=== PATIENT | male | born 1935 | race Caucasian/White ===

== ENCOUNTER 2019-06-12 11:10 | Emergency (ER) | payer MEDICARE, BC, MEDICAID ==
--- NOTE | 2019-06-12 12:11 | ER Document Report ---
ED Medical Screen (RME) - General Chief Complaint: Fall Injury Stated Complaint: FALL/RIGHT LEG PAIN Time Seen by Provider: 06/12/19 12:03 Primary Care Provider: PILLO MELTON MD [Primary Care Provider] - Follow up as needed Notes: Patient is a 84-year-old male with a history of [place] and COPD who presents emergency department with a chief complaint of right lower extremity swelling and redness. Patient reports he does normally have some swelling to his lower extremities but this is gotten worse over the past few weeks. Patient reports he is also had an increase in redness to the right lower extremity. Patient reports he is not a diabetic. Patient denies fevers. Patient reports he attempted to go to the urgent care but they sent him here for an evaluation as they thought he may require IV antibiotics. Patient reports having an open wound noted to the top of the right foot that just developed yesterday. TRAVEL OUTSIDE OF THE [place] IN LAST 30 DAYS: No - Related Data Allergies/Adverse Reactions: Penicillins Allergy (Verified 06/12/19 12:04) Sulfa (Sulfonamide Antibiotics) Allergy (Verified 06/12/19 12:04) Past Medical History - Past Medical History Cardiac Medical History: Reports: Hx Heart Attack - x2, Hx Hypertension Pulmonary Medical History: Reports: Hx COPD Past Surgical History: Reports: Hx Cardiac Catheterization, Hx Coronary Stent, Hx Orthopedic Surgery - Back surgery for spinal stenosis on 08/23/2015 Physical Exam - Vital signs Vitals: Temp Pulse BP Pulse Ox 97.6 F 58 L 148/63 H 92 06/12/19 11:16 06/12/19 11:16 06/12/19 11:16 06/12/19 11:16 - Extremities Notes: +4 pitting edema and erythema noted to the right lower extremity, unable to palpate a pulse due to to severity of swelling. Course - Re-evaluation Re-evalutation: 06/12/19 12:09 We will obtain basic labs, venous Doppler of the right lower extremity and x- ray. Patient is not tachycardic, febrile or hypotensive at this time. I have greeted and performed a rapid initial assessment of this patient. A comprehensive ED assessment and evaluation of the patient, analysis of test results and completion of the medical decision making process will be conducted by additional ED providers. - Vital Signs Vital signs: Temp Pulse Resp BP Pulse Ox 97.6 F 58 L 148/63 H 92 06/12/19 11:16 06/12/19 11:16 06/12/19 11:16 06/12/19 11:16 Doctor's Discharge - Discharge Referrals: PILLO MELTON MD [Primary Care Provider] - Follow up as needed
[2019-06-12 12:52] LABS: MEAN CORPUSCULAR HEMOGLOBIN 33.5 pg (27.0-33.4); MEAN CORPUSCULAR HGB CONC 33.3 g/dL (32.0-36.0); MEAN CORPUSCULAR VOLUME 101 fl (80-97); PLATELET COUNT 184 10^3/uL (150-450); RED BLOOD COUNT 4.47 10^6/uL (4.35-5.55); RED CELL DISTRIBUTION WIDTH 15.4 % (11.5-14.0); WHITE BLOOD COUNT 7.5 10^3/uL (4.0-10.5)
--- NOTE | 2019-06-12 12:54 | RADIOLOGY REPORT (SQ) ---
EXAM DESCRIPTION: FOOT RIGHT COMPLETE COMPLETED DATE/TIME: 06/12/2019 12:21 pm REASON FOR STUDY: + swelling, redness COMPARISON: None. NUMBER OF VIEWS: Three views. TECHNIQUE: AP, lateral and oblique radiographic images acquired of the right foot. LIMITATIONS: None. FINDINGS: MINERALIZATION: Normal. BONES: No acute fracture or dislocation. No worrisome bone lesions. JOINTS: No effusions. SOFT TISSUES: No soft tissue swelling. No foreign body. OTHER: No other significant finding. IMPRESSION: No fracture. TECHNICAL DOCUMENTATION: JOB ID: [id number] [employer]- All Rights Reserved Reading location - IP/workstation name: [email or web address]
--- NOTE | 2019-06-12 12:58 | RADIOLOGY REPORT (SQ) ---
EXAM DESCRIPTION: TIBIA FIBULA RIGHT COMPLETED DATE/TIME: 06/12/2019 12:21 pm REASON FOR STUDY: + swelling, redness COMPARISON: None. NUMBER OF VIEWS: Two views. TECHNIQUE: Two radiographic images acquired of the right tibia and fibula to include the knee and an kle in at least one projection. LIMITATIONS: None. FINDINGS: MINERALIZATION: Normal. BONES: No acute fracture or dislocation. No worrisome bone lesions. SOFT TISSUES: No obvious swelling or foreign body. OTHER: No other significant finding. IMPRESSION: No acute findings. TECHNICAL DOCUMENTATION: JOB ID: [id number] [employer]- All Rights Reserved Reading location - IP/workstation name: [email or web address]
[2019-06-12 13:12] LABS: ABSOLUTE LYMPHOCYTES# (MANUAL) 1.4 10^3/uL (0.5-4.7); ABSOLUTE MONOCYTES # (MANUAL) 0.6 10^3/uL (0.1-1.4); ALBUMIN 4.2 g/dL (3.5-5.0); ALKALINE PHOSPHATASE 128 U/L (38-126); ANION GAP 7 (5-19); ANISOCYTOSIS SLIGHT; ASPARTATE AMINO TRANSFERASE 40 U/L (17-59); BAND NEUTROPHILS % (MANUAL) 1 % (3-5); BASOPHILS % (MANUAL) 0 % (0-2); BILIRUBIN,TOTAL 1.4 mg/dL (0.2-1.3); BLOOD UREA NITROGEN 18 mg/dL (7-20); CALCIUM 9.8 mg/dL (8.4-10.2); CARBON DIOXIDE 32 mmol/L (22-30); CHLORIDE 100 mmol/L (98-107); EOSINOPHILS % (MANUAL) 6 % (0-6); GLUCOSE 91 mg/dL (75-110); LYMPHOCYTES % (MANUAL) 18 % (13-45); MONOCYTES % (MANUAL) 8 % (3-13); POTASSIUM 4.5 mmol/L (3.6-5.0); SEGMENTED NEUTROPHILS % (MAN) 67 % (42-78); TOTAL CELLS COUNTED 100; TOTAL PROTEIN 7.9 g/dL (6.3-8.2)
--- NOTE | 2019-06-12 13:12 | ER Document Report ---
ED General - General Chief Complaint: Leg Swelling Stated Complaint: FALL/RIGHT LEG PAIN Time Seen by Provider: 06/12/19 12:03 Primary Care Provider: PILLO MELTON MD [ACTIVE STAFF] - Follow up as needed TRAVEL OUTSIDE OF THE [place] IN LAST 30 DAYS: No - HPI Notes: Patient is an 84-year-old male with a history of COPD, hypertension, CAD (on aspirin) who presents with family for concern of right lower leg swelling and redness that is been worsening over the past couple weeks. Family states that his activity level is normally poor otherwise. Patient states that he does not have any pain currently in his leg, but will complain about it intermittently. He has been able to eat and drink without difficulty. He is urinating normally. Denies any headache, fever, neck pain, URI, sore throat, chest pain, palpitations, syncope, cough, shortness of breath, wheeze, dyspnea, abdominal pain, nausea/vomiting/diarrhea, urinary retention, dysuria, hematuria, or rash. - Related Data Allergies/Adverse Reactions: Penicillins Allergy (Verified 06/12/19 12:04) Sulfa (Sulfonamide Antibiotics) Allergy (Verified 06/12/19 12:04) Past Medical History - Social History Smoking Status: Never Smoker Chew tobacco use (# tins/day): No Frequency of alcohol use: None Drug Abuse: None Family History: Reviewed & Not Pertinent Patient has suicidal ideation: No Patient has homicidal ideation: No - Past Medical History Cardiac Medical History: Reports: Hx Heart Attack - x2, Hx Hypercholesterolemia, Hx Hypertension Pulmonary Medical History: Reports: Hx COPD Past Surgical History: Reports: Hx Cardiac Catheterization, Hx Coronary Stent, Hx Orthopedic Surgery - Back surgery for spinal stenosis on 08/23/2015 Review of Systems - Review of Systems -: Yes All other systems reviewed and negative Physical Exam - Vital signs Vitals: Temp Pulse BP Pulse Ox 97.6 F 58 L 148/63 H 92 06/12/19 11:16 06/12/19 11:16 06/12/19 11:16 06/12/19 11:16 - Notes Notes: PHYSICAL EXAMINATION: GENERAL: Well-appearing, well-nourished and in no acute distress. HEAD: Atraumatic, normocephalic. EYES: Pupils equal round and reactive to light, extraocular movements intact, sclera anicteric, conjunctiva are normal. ENT: Nares patent and without discharge. oropharynx clear without exudates. No tonsilar hypertrophy or erythema. Moist mucous membranes. NECK: Normal range of motion, supple without lymphadenopathy LUNGS: Breath sounds clear to auscultation bilaterally and equal. No wheezes rales or rhonchi. HEART: Regular rate and rhythm without murmurs, rubs, gallops. ABDOMEN: Soft, nontender, nondistended abdomen. No guarding, no rebound. No rmal bowel sounds present. No CVA tenderness bilaterally. Musculoskeletal: FROM to passive/active. Strength 5+/5. no bony tenderness. Extremities: 2+ pitting edema RLE, trace LLE. Peripheral pulses 2+ on left. too much swelling rt foot to eval pulses. Cap refill 4 seconds rt foot with dusky appearance to the toes. Foot is warm, but toes feel cold. Rt LE is erythemic and warm with the swelling present. NEUROLOGICAL: Cranial nerves grossly intact. Normal speech, normal gait. Normal sensory, motor exams PSYCH: Normal mood, normal affect. SKIN: see above Course - Re-evaluation Re-evalutation: 06/12/19 13:[address] Troy who also eval'd patient and agrees with dispo/plan: Patient is an afebrile, well-hydrated, 84-year-old male who presents to the ED with Rt LE cellulitis. Vitals are acceptable without any significant tachycardia, tachypnea, or hypoxia. PE is otherwise unremarkable for any neuro vascular compromise, obvious tendon/ligament rupture, obvious fracture/dislocation, septic joint. X-rays/doppler unremarkable for any acute pathology. Doppler tech states there was good arterial and venous flow. Labs acceptable otherwise. Patient is nontoxic-appearing. Patient is able to ambula te and weight-bear. No other labs or imaging warranted at this time based on H&P. Conservative measures otherwise for symptoms. Recheck with your PCM in 3- 5 days. Consider consult orthopedics. Return to the ED with any worsening/concerning symptoms otherwise as reviewed in discharge. Patient is in agreement. - Vital Signs Vital signs: Temp Pulse Resp BP Pulse Ox 97.6 F 58 L 148/63 H 92 06/12/19 12:04 06/12/19 11:16 06/12/19 11:16 06/12/19 12:04 - Laboratory Result Diagrams: 06/12/19 12:31 12 12:31 Laboratory results interpreted by me: 06/12/19 06/12/19 12:31 12:31 MCV 101 H MCH 33.5 H RDW 15.4 H Band Neutrophils % 1 L Carbon Dioxide 32 H Total Bilirubin 1.4 H Alkaline Phosphatase 128 H Discharge - Discharge Clinical Impression: Cellulitis of right lower extremity Condition: Stable Disposition: HOME, SELF-CARE Additional Instructions: Rest, Ice, Compression, Elevation Keep the skin clean and wash with soap and water Tylenol/ibuprofen as needed Light stretches daily Strength exercises as able F/u with your PCP in 3-5 days for a recheck Return to the ED with any worsening symptoms and/or development of fever, headache, chest pain, palpitations, syncope, shortness of breath, trouble breathing, abdominal pain, n/v/d, muscle weakness/paralysis, numbness/tingling, swelling, redness, or other worsening symptoms that are concerning to you. Prescriptions: Clindamycin HCl [Cleocin 300 mg Capsule] 300 mg PO TID #30 capsule Forms: Elevated Blood Pressure Referrals: Provider, Family [Other] - Follow up in 3-5 days
[2019-06-12 13:13] LABS: PLATELET COMMENT ADEQUATE
--- NOTE | 2019-06-12 14:07 | RADIOLOGY REPORT (SQ) ---
EXAM DESCRIPTION: VENOUS UNILATERAL LOWER COMPLETED DATE/TIME: 06/12/2019 1:34 pm REASON FOR STUDY: + swelling and redness RLE COMPARISON: None. TECHNIQUE: Dynamic and static prieto scale and color images acquired of the right leg venous system. S elected spectral images acquired with additional compression and augmentation maneuvers. The contrala teral common femoral vein and saphenofemoral junction were also imaged. Images stored on PACS. LIMITATIONS: None. FINDINGS: COMMON FEMORAL: Normal phasicity, compression and augmentation. No visualized echogenic ma terial on prieto scale. No defects on color images. FEMORAL: Normal compression and augmentation. No visualized echogenic material on prieto scale. No defe cts on color images. POPLITEAL: Normal compression, augmentation. No visualized echogenic material on prieto scale. No defec ts on color images. CALF VESSELS: Normal compression, augmentation. No visualized echogenic material on prieto scale. No de fects on color images. GSV and SSV: Normal compression, augmentation. No visualized echogenic material on prieto scale. No def ects on color images. ANY DEEP VENOUS INSUFFICIENCY: Not evaluated. ANY EVIDENCE OF POPLITEAL CYST: No. OTHER: Normal flow in the dorsalis pedis artery. CONTRALATERAL COMMON FEMORAL VEIN AND SAPHENOFEMORAL JUNCTION: Normal phasicity, compression and augmentation. No visualized echogenic material on prieto scale. No de fects on color images. IMPRESSION: NO EVIDENCE DVT OR SVT IN THE RIGHT LEG. TECHNICAL DOCUMENTATION: JOB ID: [id number] [employer]- All Rights Reserved Reading location - IP/workstation name: [email or web address]
[2019-06-12 14:12] VITALS: BP 146/70
== END 2019-06-12 14:11 | disposition home or self-care (01) ==
LOC: ER 11:10
DX: L03.115 Cellulitis of right lower limb (principal); M79.89 Other specified soft tissue disorders; M79.604 Pain in right leg; I10 Essential (primary) hypertension; I25.10 Atherosclerotic heart disease of native coronary artery without angina pectoris; I25.2 Old myocardial infarction; J44.9 Chronic obstructive pulmonary disease, unspecified
CPT/HCPCS: 36415; 80053; 85025; 93971; 99284

== ENCOUNTER 2020-02-24 10:24 | Inpatient (IN) | payer MEDICARE, BC, MEDICAID ==
[2020-02-24 11:04] LABS: HEMATOCRIT 38.9 % (37.9-51.0); MEAN CORPUSCULAR HEMOGLOBIN 34.4 pg (27.0-33.4); MEAN CORPUSCULAR HGB CONC 33.4 g/dL (32.0-36.0); MEAN CORPUSCULAR VOLUME 103 fl (80-97); PLATELET COUNT 196 10^3/uL (150-450); RED BLOOD COUNT 3.78 10^6/uL (4.35-5.55); RED CELL DISTRIBUTION WIDTH 14.5 % (11.5-14.0); WHITE BLOOD COUNT 10.1 10^3/uL (4.0-10.5)
[2020-02-24 11:19] LABS: ALBUMIN 3.5 g/dL (3.5-5.0); ALKALINE PHOSPHATASE 94 U/L (38-126); ASPARTATE AMINO TRANSFERASE 82 U/L (17-59); BILIRUBIN,DIRECT 0.1 mg/dL (0.0-0.4); BILIRUBIN,TOTAL 0.9 mg/dL (0.2-1.3); BLOOD UREA NITROGEN 18 mg/dL (7-20); CALCIUM 9.1 mg/dL (8.4-10.2); CHLORIDE 96 mmol/L (98-107); CREATINE KINASE 59 U/L (55-170); GLUCOSE 110 mg/dL (75-110); POTASSIUM 4.5 mmol/L (3.6-5.0); TOTAL PROTEIN 6.8 g/dL (6.3-8.2)
[2020-02-24 11:30] LABS: CREATINE KINASE MB 2.28 ng/mL (<4.55)
[2020-02-24 11:35] LABS: TROPONIN I < 0.012 ng/mL
[2020-02-24 11:46] LABS: ABSOLUTE LYMPHOCYTES# (MANUAL) 0.9 10^3/uL (0.5-4.7); BAND NEUTROPHILS % (MANUAL) 3 % (3-5); BASOPHILS % (MANUAL) 0 % (0-2); EOSINOPHILS % (MANUAL) 5 % (0-6); LYMPHOCYTES % (MANUAL) 9 % (13-45); METAMYELOCYTES % (MANUAL) 1 % (0-1); MONOCYTES % (MANUAL) 10 % (3-13); SEGMENTED NEUTROPHILS % (MAN) 72 % (42-78); TOTAL CELLS COUNTED 100
[2020-02-24 11:47] LABS: ANION GAP 6 (5-19); ANISOCYTOSIS SLIGHT; CARBON DIOXIDE 38 mmol/L (22-30); PLATELET COMMENT ADEQUATE
--- NOTE | 2020-02-24 11:53 | RADIOLOGY REPORT (SQ) ---
EXAM DESCRIPTION: CHEST SINGLE VIEW IMAGES COMPLETED DATE/TIME: 02/24/2020 11:23 am REASON FOR STUDY: sob COMPARISON: 11/14/2015 EXAM PARAMETERS: NUMBER OF VIEWS: One view. TECHNIQUE: Single frontal radiographic view of the chest acquired. RADIATION DOSE: NA LIMITATIONS: None. FINDINGS: LUNGS AND PLEURA: Obscuration of the right lung base appears to be on the basis of elevati on of the right hemidiaphragm. No focal consolidation. No pleural effusion or pneumothorax MEDIASTINUM AND HILAR STRUCTURES: Grossly normal. HEART AND VASCULAR STRUCTURES: Heart normal in size. Normal vasculature. BONES: No acute findings. HARDWARE: None in the chest. OTHER: No other significant finding. IMPRESSION: Suspect elevation of the right hemidiaphragm. Consider dedicated PA/ Lat chest imaging when feasible. TECHNICAL DOCUMENTATION: JOB ID: [id number] 2010 [employer]- All Rights Reserved Reading location - IP/workstation name: [email or web address]
[2020-02-24] MEDS ORDERED: IPRATROPIUM/ALBUTEROL 0.5-2.5 MG/3 ML AMPUL NEB ONE (13:36)
[2020-02-24] MEDS ORDERED: FUROSEMIDE INJ/PF 40 MG/4 ML SDV IV ONE (13:37)
--- NOTE | 2020-02-24 13:37 | ER Document Report ---
ED General - General Chief Complaint: Shortness Of Breath Stated Complaint: SHORTNESS OF BREATH Mode of Arrival: Medic Information source: Patient Notes: Patient is an 84-year-old male presenting to the emergency department chief complaint of worsening shortness of breath over the past couple of days. Patient comes in by EMS. At time of presentation patient is tachypneic and is only able to speak in 1 or 2 word answers. Patient denies any change in medications denies travel history. Patient states nobody at home smokes at this point in time. TRAVEL OUTSIDE OF THE [place] IN LAST 30 DAYS: No - HPI Onset: Last week Onset/Duration: Gradual, Worse Quality of pain: Achy Severity: Mild Pain Level: 1 Associated symptoms: Hoarseness, Hurts to breath, Nausea, Shortness of breath. denies: Diarrhea, Vomiting Exacerbated by: Movement, Walking, Coughing, Deep breathing - 70 was low Relieved by: Denies Similar symptoms previously: Yes Recently seen / treated by doctor: No - Related Data Allergies/Adverse Reactions: Penicillins Allergy (Verified 06/12/19 12:04) Sulfa (Sulfonamide Antibiotics) Allergy (Verified 06/12/19 12:04) Past Medical History - General Information source: Patient, [facility] Records - Social History Smoking Status: Unknown if Ever Smoked Chew tobacco use (# tins/day): No Frequency of alcohol use: None Drug Abuse: None Lives with: Family Family History: Reviewed & Not Pertinent Patient has suicidal ideation: No Patient has homicidal ideation: No - Past Medical History Cardiac Medical History: Reports: Hx Heart Attack - x2, Hx Hypercholesterolemia, Hx Hypertension Pulmonary Medical History: Reports: Hx COPD Past Surgical History: Reports: Hx Cardiac Catheterization, Hx Coronary Stent, Hx Orthopedic Surgery - Back surgery for spinal stenosis on 08/23/2015 Review of Systems - Review of Systems Constitutional: No symptoms reported EENT: No symptoms reported Cardiovascular: See HPI Respiratory: See HPI Gastrointestinal: No symptoms reported Genitourinary: No symptoms reported Male Genitourinary: No symptoms reported Musculoskeletal: Leg swelling, Ankle swelling Skin: Change in color Hematologic/Lymphatic: No symptoms reported Neurological/Psychological: No symptoms reported Physical Exam - Vital signs Vitals: Resp Pulse Ox 24 H 89 L 02/24/20 10:36 02/24/20 10:36 - Notes Notes: PHYSICAL EXAMINATION: GENERAL: Patient is a 84-year-old male presenting to the emergency department by EMS chief complaint of severe respiratory distress HEAD: Atraumatic, normocephalic. EYES: Pupils equal round and reactive to light, extraocular movements intact, sclera anicteric, conjunctiva are normal. ENT: nares patent, oropharynx clear without exudates. Dry mucous membranes. NECK: Normal range of motion, supple without lymphadenopathy, no appreciable JVD LUNGS: Patient is tachypneic and demonstrates end expiratory wheezing and rhonchi in all goldstein. HEART: Tachycardic rate and rhythm without murmurs ABDOMEN: Soft, nontender, decreased bowel sounds. No guarding, no rebound. No masses appreciated. EXTREMITIES: Active full range of motion, there is pitting edema and erythema to bilateral lower extremities mainly the feet. No cyanosis. 2+ pulses x4 NEUROLOGICAL: No focal neurological deficits. Moves all extremities sponta neously and on command. SKIN: Warm, Dry, and intact. Normal turgor, no rashes or lesions noted. Course - Re-evaluation Re-evalutation: 02/24/20 13:36 At time of presentation to the emergency department the patient was placed in ho spital bed IV access was obtained patient was placed on BiPAP. Labs EKG and portable chest x-ray had been ordered. 02/24/20 18:34 Patient has been maintained on a fringing machine operator the entire time in the emergency department. Patient has been placed on and remained on BiPAP and has had moderate relief with same. Patient was given 1 dose of Lasix 40 mg IV and a DuoNeb breathing treatment. I have reviewed the patient's laboratory and radiologic results as well as his EKG the chest x-ray demonstrated a markedly elevated right-sided diaphragm and patient was sent for CT of the chest secondary to this very abnormal appearing chest x-ray and his shortness of breath. 02/24/20 18:35 I have consulted the hospitalist for admission secondary to COPD exacerbation. Patient has had coronavirus testing and after speaking with the hospitalist he requested the addition of a d-dimer ferritin level and a CRP which has been requested. - Vital Signs Vital signs: Temp Pulse Resp BP Pulse Ox 98.0 F 72 17 133/57 H 100 02/24/20 11:35 02/24/20 11:35 02/24/20 12:01 02/24/20 12:00 02/24/20 12:01 - Laboratory Result Diagrams: 02/24/20 10:47 02/24/20 10:47 Laboratory results interpreted by me: 02/24/20 02/24/20 02/24/20 10:47 10:47 10:47 RBC 3.78 L Hgb 13.0 L MCV 103 H MCH 34.4 H RDW 14.5 H Lymphocytes % (Manual) 9 L Chloride 96 L Carbon Dioxide 38 H AST 82 H ALT 53 H NT-Pro-B Natriuret Pep 478 H Urine Blood Urine Urobilinogen 02/24/20 14:30 RBC Hgb MCV MCH RDW Lymphocytes % (Manual) Chloride Carbon Dioxide AST ALT NT-Pro-B Natriuret Pep Urine Blood SMALL H Urine Urobilinogen 2.0 H - Diagnostic Test Radiology reviewed: Reports reviewed - EKG Interpretation by Me EKG shows normal: Sinus rhythm Rate: Normal Rhythm: NSR Bowman/QRS: Right axis deviation When compared to previous EKG there are: No significant change Critical Care Note - Critical Care Note Total time excluding time spent on procedures (mins): 35 Comments: Please allow 35 minutes of critical care time spent obtaining history from patient or surrogate, discussions with consultants, development of treatment plan with patient or surrogate, evaluation of patient's response to treatment, examination of patient. This also includes ordering and reviewing laboratory, EKG and / or radiologic studies, performing and reassessing treatments and interventions as well as reviewing previous visits and old charts. This is exclusive of separately billable procedures. Discharge - Discharge Clinical Impression: COPD exacerbation, Respiratory distress Condition: Fair Disposition: ADMITTED INPATIENT Admitting Provider: Daysi (Hospitalist) Unit Admitted: Telemetry
[2020-02-24 15:14] LABS: APPEARANCE,URINE SLIGHTLY-CLOUDY; BILIRUBIN,URINE NEGATIVE (NEGATIVE); GLUCOSE, URINE NEGATIVE (NEGATIVE); KETONES,URINE NEGATIVE (NEGATIVE); LEUKOCYTE ESTERASE,URINE NEGATIVE (NEGATIVE); NITRITE,URINE NEGATIVE (NEGATIVE); PROTEIN,URINE NEGATIVE (NEGATIVE); URINE SPECIFIC GRAVITY 1.016
[2020-02-24 15:15] LABS: COLOR,URINE DARK YELLOW
--- NOTE | 2020-02-24 18:09 | RADIOLOGY REPORT (SQ) ---
EXAM DESCRIPTION: CT CHEST WITH IMAGES COMPLETED DATE/TIME: 02/24/2020 4:36 pm REASON FOR STUDY: sob. COMPARISON: Chest radiograph same date. Chest radiograph, 11/14/2015. TECHNIQUE: CT scan of the chest performed using helical scanning technique with dynamic intravenous contrast injection. Images reviewed with lung, soft tissue and bone windows. Reconstructed coronal and sagittal MPR and MIP images reviewed. All images stored on PACS. All CT scanners at this facility use dose modulation, iterative reconstruction, and/or weight based d osing when appropriate to reduce radiation dose to as low as reasonably achievable (ALARA). [facility]: Dose Right [facility]: CareDose [facility]: Dose Right [facility]: Teradose 4D [facility]: [email or web address] CONTRAST TYPE AND DOSE: contrast/concentration: Isovue 350.00 mmol/ml; Total Contrast Delivered: 80. 0 ml; Total Saline Delivered: 49.1 ml RENAL FUNCTION: GFR > 60. RADIATION DOSE: CT Rad equipment meets quality standard of care and radiation dose reduction techniq ues were employed. CTDIvol: 14.4 mGy. DLP: 547 mGy-cm. . LIMITATIONS: None. FINDINGS: LUNGS AND PLEURA: Trachea has normal caliber and appearance. There is background mild pul monary emphysema. Elevation of the right hemidiaphragm, stable from previous examinations, with mild compressive atelectasis at the right lung base. No focal consolidation or pleural effusion. No sig nificant ground-glass attenuation. No suspicious pulmonary nodules. HILAR AND MEDIASTINAL STRUCTURES: No identified masses or abnormal nodes. HEART AND VASCULAR STRUCTURES: No aneurysm or dissection. No central pulmonary emboli. No pericardi al effusion. HARDWARE: None in the chest. UPPER ABDOMEN: No significant findings. Limited exam. THYROID AND OTHER SOFT TISSUES: No masses. No adenopathy. BONES: No significant finding. Degenerative disc disease in the thoracic spine. Multilevel spondylo sis with small marginal osteophytes. OTHER: No other significant finding. IMPRESSION: 1. No acute pulmonary disease. Chronic elevation of the right hemidiaphragm with compressive atelect asis at the right lung base, stable. 2. Background mild pulmonary emphysema. TECHNICAL DOCUMENTATION: JOB ID: [id number] Quality ID # [id number]: Final reports with documentation of one or more dose reduction techniques (e.g., Au tomated exposure control, adjustment of the mA and/or kV according to patient size, use of iterative reconstruction technique) 2010 [employer] All Rights Reserved Reading location - IP/workstation name: [email or web address]
--- NOTE | 2020-02-24 18:41 | EKG REPORT ---
SEVERITY:- ABNORMAL ECG - SINUS RHYTHM RIGHT BUNDLE BRANCH BLOCK : Confirmed by: Emil Renteria 24-Feb-2020 18:40:31
[2020-02-24 18:51] LABS: C-REACTIVE PROTEIN 9.7 mg/L (<10.0)
[2020-02-24] MEDS ORDERED: ACETAMINOPHEN 650 MG SUPP.RECT PR PRN (18:58)
[2020-02-24] MEDS ORDERED: ONDANSETRON HCL INJ/PF 4 MG/2 ML SDV IV PRN (18:58)
[2020-02-24] MEDS ORDERED: IPRATROPIUM/ALBUTEROL 0.5-2.5 MG/3 ML AMPUL NEB PRN (18:58)
[2020-02-24] MEDS ORDERED: ONDANSETRON 4 MG TAB.RAPDIS PO PRN (18:58)
[2020-02-24] MEDS ORDERED: ALBUTEROL SULFATE HFA (90 MCG/PUFF) 8 GM MDI (1 MDI/ER DISP) IH PRN (19:04)
--- NOTE | 2020-02-24 19:18 | PDOC H&P ---
History of Present Illness History of Present Illness: DAVIDA MCKEON is a 84 year old male Past Medical History Cardiac Medical History: Reports: Myocardial Infarction - x2, Hyperlipidema, Hypertension Pulmonary Medical History: Reports: Chronic Obstructive Pulmonary Disease (COPD) Past Surgical History Past Surgical History: Reports: Cardiac Catheterization, Coronary Stent, Orthopedic Surgery - Back surgery for spinal stenosis on 08/23/2015 Social History Lives with: Family Smoking Status: Former Smoker Hx Recreational Drug Use: No Hx Prescription Drug Abuse: No - Advance Directive Resuscitation Status: Full Code Surrogate healthcare decision maker:: Layla Family History Family History: Reviewed & Not Pertinent Parental Family History Reviewed: Yes Children Family History Reviewed: Yes Sibling(s) Family History Reviewed.: Yes Medication/Allergy Home Medications: Atorvastatin Calcium [Lipitor 40 mg Tablet] 40 mg PO QHS 06/12/19 Budesonide/Formoterol Fumarate [Symbicort Hfa 80-4.5 Mcg Inhaler 6.9 gm] 1 puff IH Q12 06/12/19 Escitalopram Oxalate [Lexapro 10 mg Tablet] 10 mg PO DAILY 06/12/19 Isosorbide Mononitrate [Imdur 30 mg Tablet.er] 30 mg PO DAILY 06/12/19 Metoprolol Tartrate [Lopressor 25 mg Tablet] 25 mg PO DAILY 06/12/19 Albuterol Sulfate [Albuterol Sulfate Hfa] 2 puff IH Q6HP PRN 02/24/20 Bumetanide [Bumex 1 mg Tablet] 1 mg PO DAILY 02/24/20 Ipratropium/Albuterol Sulfate [Duoneb 3 ml Ampul] 3 ml NEB RTQ4HP PRN 02/24/20 Morphine Sulfate [Morphine Oral Soln 10 Mg/5 Ml Udcup] 0.25 mg PO Q1HP PRN 02/24/20 Morphine Sulfate [Morphine Oral Soln 10 Mg/5 Ml Udcup] 5 mg PO Q4HP PRN 02/24/20 Tiotropium Lee [Spiriva Handihaler 5 Cap/Kit (18 Mcg/Cap)] 1 inh IH DAILY 02/24/20 Allergies/Adverse Reactions: Penicillins Allergy (Verified 06/12/19 12:04) Sulfa (Sulfonamide Antibiotics) Allergy (Verified 06/12/19 12:04) Review of Systems ROS unobtainable: Due to mental status Physical Exam Vital Signs: Temp Pulse Resp BP Pulse Ox 98.0 F 72 17 133/57 H 100 02/24/20 11:35 02/24/20 11:35 02/24/20 12:01 02/24/20 12:00 02/24/20 12:01 Intake & Output 02/23/20 02/24/20 02/25/20 06:59 06:59 06:59 Weight 104.8 kg General appearance: PRESENT: mild distress, obese, well-developed, well- nourished Head exam: PRESENT: atraumatic, normocephalic Eye exam: PRESENT: conjunctiva pink Respiratory exam: PRESENT: rhonchi - Bilateral at the bases. ABSENT: rales, wheezes Cardiovascular exam: PRESENT: RRR. ABSENT: diastolic murmur, rubs, systolic murmur GI/Abdominal exam: PRESENT: normal bowel sounds, soft. ABSENT: distended, guar ding, mass, organolmegaly, rebound, tenderness Rectal exam: PRESENT: deferred Neurological exam: PRESENT: alert, awake Psychiatric exam: PRESENT: appropriate affect, normal mood Skin exam: PRESENT: dry, intact, warm Results Laboratory Results: 02/24/20 10:47 02/24/20 10:47 02/24/20 02/24/20 02/24/20 10:47 10:47 14:30 WBC 10.1 RBC 3.78 L Hgb 13.0 L Hct 38.9 MCV 103 H MCH 34.4 H MCHC 33.4 RDW 14.5 H Plt Count 196 Seg Neutrophils % Not Reportable Sodium 139.4 Potassium 4.5 Chloride 96 L Carbon Dioxide 38 H Anion Gap 6 BUN 18 Creatinine 0.76 Est GFR ( Amer) > 60 Glucose 110 Calcium 9.1 Total Bilirubin 0.9 AST 82 H Alkaline Phosphatase 94 Total Protein 6.8 Albumin 3.5 Urine Color DARK YELLOW Urine Appearance SLIGHTLY-CLOUDY Urine pH 5.0 Ur Specific [place] 1.016 Urine Protein NEGATIVE Urine Glucose (UA) NEGATIVE Urine Ketones NEGATIVE Urine Blood SMALL H Urine Nitrite NEGATIVE Ur Leukocyte Esterase NEGATIVE Urine WBC (Auto) 1 Urine RBC (Auto) 2 02/24/20 02/24/20 02/24/20 10:47 10:47 10:47 Creatine Kinase 59 CK-MB (CK-2) 2.28 Troponin I < 0.012 NT-Pro-B Natriuret Pep 478 H Impressions: Chest X-Ray 02/24/20 10:32 IMPRESSION: Suspect elevation of the right hemidiaphragm. Consider dedicated PA/ Lat chest imaging when feasible. Chest CT 02/24/20 13:31 IMPRESSION: 1. No acute pulmonary disease. Chronic elevation of the right hemidiaphragm with compressive atelectasis at the right lung base, stable. 2. Background mild pulmonary emphysema. Assessment and Plan - Diagnosis (1) Suspected COVID-19 virus infection Is this a current diagnosis for this admission?: Yes Plan: Recent admission to [facility] for abdominal pain per , possibly contracted COVID there COVID test pending done in ED Admit to COVID unit with contact and respiratory precautions Started on dexamethasone IV 6 mg daily Zinc, vitamin C, vitamin D (2) COPD exacerbation Is this a current diagnosis for this admission?: Yes Plan: Former smoker with longstanding COPD Does not use oxygen at baseline prior to admission Duo nebs as needed Continue home Spiriva and albuterol Systemic steroids as above Bronchial hygiene, incentive spirometer Azithromycin (3) HTN (hypertension) Is this a current diagnosis for this admission?: Yes Plan: Home medications continued (4) HLD (hyperlipidemia) Is this a current diagnosis for this admission?: Yes Plan: Stable (5) Former smoker Is this a current diagnosis for this admission?: Yes - Time Time Spent with patient: 35 or more minutes Medications reviewed and adjusted accordingly: Yes Anticipated Discharge Disposition: Home, Self Care Anticipated Discharge Timeframe: within 72 hours - Inpatient Certification Based on my medical assessment, after consideration of the patient's comorbiditi es, presenting symptoms, or acuity I expect that the services needed warrant INPATIENT care.: Yes I certify that my determination is in accordance with my understanding of [facility]'s requirements for reasonable and necessary INPATIENT services [42 CFR 412.3e].: Yes Medical Necessity: Significant Comorbidiites Make Outpatient Treatment Too Risky, Need Close Monitoring Due to Risk of Patient Decompensation, Need for IV Antibiotics, Risk of Complication if Not Cared For in Hospital, Risk of Diagnosis Which Will Require Inpatient Eval/Care/Monitoring
--- NOTE | 2020-02-24 19:19 | ADVANCED CARE ---
- Diagnosis (1) Suspected COVID-19 virus infection Diagnosis Current: Yes (2) COPD exacerbation Diagnosis Current: Yes (3) HTN (hypertension) Diagnosis Current: Yes (4) HLD (hyperlipidemia) Diagnosis Current: Yes (5) Former smoker Diagnosis Current: Yes Attendance: Patient's , patient unable to speak due to BiPAP Resuscitation Status: Full Code Discussion: All aspects of code status discussed with patient/POA including cardioversion, chest compressions, and intubation and the patient/POA indicated they wish to be full code MPOA is designated as: Carmen Cobb Time Spent: Greater than 16 minutes
[2020-02-24] MEDS ORDERED: PHARMACY COMMUNICATION ORDER MC NR (19:30)
[2020-02-24] MEDS ORDERED: ALBUTEROL SULFATE HFA (90 MCG/PUFF) 200 PUFF/8.5 GM MDI IH PRN (19:38)
[2020-02-24] MEDS ORDERED: AZITHROMYCIN INJ 500 MG VIAL IV SCH (20:00)
[2020-02-24] MEDS: AZITHROMYCIN 500 MG in DEXTROSE 5%-WATER 250 ML IV SCH (22:09)
[2020-02-24] MEDS: ZINC SULFATE 220 MG CAPSULE PO SCH (22:10)
[2020-02-24] MEDS: DEXAMETHASONE SOD PHOSPHATE INJ 4 MG/1 ML VIAL IV SCH (22:10)
[2020-02-24] MEDS: ASCORBIC ACID 500 MG TABLET PO SCH (22:23)
[2020-02-24] MEDS: CHOLECALCIFEROL (D3) 1,000 UNIT (25 MCG) TABLET PO SCH (22:24)
[2020-02-24] MEDS: ENOXAPARIN SODIUM INJ 40 MG/0.4 ML DISP.SYRIN SUBCUT SCH (23:44)
[2020-02-25 05:35] LABS: HEMATOCRIT 40.6 % (37.9-51.0); HEMOGLOBIN 13.7 g/dL (13.5-17.0); MEAN CORPUSCULAR HEMOGLOBIN 34.7 pg (27.0-33.4); MEAN CORPUSCULAR HGB CONC 33.7 g/dL (32.0-36.0); MEAN CORPUSCULAR VOLUME 103 fl (80-97); PLATELET COUNT 167 10^3/uL (150-450); RED BLOOD COUNT 3.95 10^6/uL (4.35-5.55); RED CELL DISTRIBUTION WIDTH 14.2 % (11.5-14.0); WHITE BLOOD COUNT 8.3 10^3/uL (4.0-10.5)
[2020-02-25 05:52] LABS: BLOOD UREA NITROGEN 19 mg/dL (7-20); CALCIUM 9.1 mg/dL (8.4-10.2); CHLORIDE 93 mmol/L (98-107); GLUCOSE 133 mg/dL (75-110); PHOSPHORUS 3.8 mg/dL (2.5-4.5); POTASSIUM 5.2 mmol/L (3.6-5.0)
[2020-02-25 06:04] LABS: ANION GAP 7 (5-19); CARBON DIOXIDE 38 mmol/L (22-30)
[2020-02-25 06:06] LABS: ABSOLUTE LYMPHOCYTES# (MANUAL) 0.6 10^3/uL (0.5-4.7); ABSOLUTE MONOCYTES # (MANUAL) 0.1 10^3/uL (0.1-1.4); BASOPHILS % (MANUAL) 2 % (0-2); EOSINOPHILS % (MANUAL) 0 % (0-6); LYMPHOCYTES % (MANUAL) 3 % (13-45); MONOCYTES % (MANUAL) 1 % (3-13); SEGMENTED NEUTROPHILS % (MAN) 80 % (42-78); TOTAL CELLS COUNTED 100
[2020-02-25 06:11] LABS: ANISOCYTOSIS SLIGHT; PLATELET COMMENT ADEQUATE; TOXIC GRANULATION 1+; TOXIC VACUOLATION PRESENT
[2020-02-25 06:12] LABS: BAND NEUTROPHILS % (MANUAL) 10 % (3-5)
[2020-02-25] MEDS ORDERED: (PENDING PHARMACY ID) (Tiotropium Bromide [Spiriva Handihaler 5 Cap/Kit (18 Mcg/Cap)] 1 IN IH SCH (10:00)
[2020-02-25] MEDS: ESCITALOPRAM OXALATE 10 MG TABLET PO SCH (10:29)
[2020-02-25] MEDS: ZINC SULFATE 220 MG CAPSULE PO SCH (10:29)
[2020-02-25] MEDS: CHOLECALCIFEROL (D3) 1,000 UNIT (25 MCG) TABLET PO SCH ×2 (10:29→18:20)
[2020-02-25] MEDS: BUMETANIDE 1 MG TABLET PO SCH (10:30)
[2020-02-25] MEDS: ASCORBIC ACID 500 MG TABLET PO SCH ×2 (10:30→18:20)
[2020-02-25] MEDS: UMECLIDINIUM BROMIDE 62.5 MCG/DOSE IH SCH (10:30)
[2020-02-25] MEDS: ENOXAPARIN SODIUM INJ 40 MG/0.4 ML DISP.SYRIN SUBCUT SCH (10:30)
[2020-02-25] MEDS: FLUTICASONE NASAL SPRAY 50 MCG/SPRY 120 SPRAY/16 GM NAREB SCH ×2 (10:37→21:30)
--- NOTE | 2020-02-25 17:07 | PDOC PROGRESS REPORT ---
Subjective Subjective:: Patient admitted for acute hypoxemic respiratory failure due to combination COPD and possible COVID-19 pneumonia. COVID-19 testing on admission pending. Patient maintained on BiPAP. Patient intermittently awake and alert, speaking to nursing staff. Potassium and phosphorus rising and d-dimer positive. Ferritin is normal and UA is unremarkable. CRP is normal. Possible the patient does not have coronavirus pneumonia. Other than shortness of breath patient has no new complaints today. Reason For Visit: COPD EXACERBATION,ACUTE HYPOXEMIC RESP FAILURE Physical Exam Vital Signs: Temp Pulse Resp BP Pulse Ox 98.6 F 66 20 138/76 H 94 02/25/20 15:22 02/25/20 15:22 02/25/20 15:22 02/25/20 15:22 02/25/20 12:00 Intake & Output 02/24/20 02/25/20 02/26/20 06:59 06:59 06:59 Intake Total 250 Output Total 0 Balance 250 Weight 96.3 kg General appearance: PRESENT: no acute distress, well-developed, well-nourished Head exam: PRESENT: atraumatic, normocephalic Eye exam: PRESENT: conjunctiva pink. ABSENT: scleral icterus Respiratory exam: PRESENT: wheezes. ABSENT: crackles, rales, rhonchi Cardiovascular exam: PRESENT: RRR. ABSENT: diastolic murmur, rubs, systolic murmur GI/Abdominal exam: PRESENT: normal bowel sounds, soft. ABSENT: distended, guarding, mass, organolmegaly, rebound, tenderness Neurological exam: PRESENT: alert, awake, oriented to person, oriented to place, oriented to time, oriented to situation Psychiatric exam: PRESENT: appropriate affect, normal mood Skin exam: PRESENT: dry, intact, warm Results Laboratory Results: 02/25/20 04:48 02/25/20 04:48 02/24/20 02/25/20 02/25/20 10:47 04:48 04:48 WBC 8.3 RBC 3.95 L Hgb 13.7 Hct 40.6 MCV 103 H MCH 34.7 H MCHC 33.7 RDW 14.2 H Plt Count 167 Seg Neutrophils % Not Reportable Sodium 137.8 Potassium 5.2 H Chloride 93 L Carbon Dioxide 38 H Anion Gap 7 BUN 19 Creatinine 0.70 Est GFR ( Amer) > 60 Glucose 133 H Calcium 9.1 Phosphorus 3.8 Magnesium 2.4 H Ferritin 215.00 C-Reactive Protein 9.7 Lipase 74.8 02/24/20 02/24/20 02/24/20 10:47 10:47 10:47 Creatine Kinase 59 CK-MB (CK-2) 2.28 Troponin I < 0.012 NT-Pro-B Natriuret Pep 478 H Impressions: Chest X-Ray 02/24/20 10:32 IMPRESSION: Suspect elevation of the right hemidiaphragm. Consider dedicated PA/ Lat chest imaging when feasible. Chest CT 02/24/20 13:31 IMPRESSION: 1. No acute pulmonary disease. Chronic elevation of the right hemidiaphragm with compressive atelectasis at the right lung base, stable. 2. Background mild pulmonary emphysema. Assessment and Plan - Diagnosis (1) Suspected COVID-19 virus infection Is this a current diagnosis for this admission?: Yes Plan: Recent admission to [facility] for abdominal pain per , possibly contracted COVID there COVID test pending done in ED Admit to COVID unit with contact and respiratory precautions Started on dexamethasone IV 6 mg daily Zinc, vitamin C, vitamin D We will hold off on starting remdesivir until COVID testing has returned given patient seems to be improving on current interventions alone (2) COPD exacerbation Is this a current diagnosis for this admission?: Yes Plan: Former smoker with longstanding COPD, wheezing on exam Does not use oxygen at baseline prior to admission Duo nebs as needed Continue home Spiriva and albuterol Systemic steroids as above Bronchial hygiene, incentive spirometer Azithromycin (3) HTN (hypertension) Is this a current diagnosis for this admission?: Yes (4) HLD (hyperlipidemia) Is this a current diagnosis for this admission?: Yes (5) Former smoker Is this a current diagnosis for this admission?: Yes - Time Time Spent with patient: 35 or more minutes Medications reviewed and adjusted accordingly: Yes Anticipated Discharge Disposition: Home, Self Care Anticipated Discharge Timeframe: within 72 hours - Inpatient Certification Based on my medical assessment, after consideration of the patient's comorbidities, presenting symptoms, or acuity I expect that the services needed warrant INPATIENT care.: Yes I certify that my determination is in accordance with my understanding of Medicare's requirements for reasonable and necessary INPATIENT services [42 CFR 412.3e].: Yes Medical Necessity: Significant Comorbidiites Make Outpatient Treatment Too Risky, Need Close Monitoring Due to Risk of Patient Decompensation, Need for Nebulizer Therapy and Monitoring of Response, Risk of Complication if Not Cared For in Hospital, Risk of Diagnosis Which Will Require Inpatient Eval/Care/M onitoring
[2020-02-25] MEDS: AZITHROMYCIN 500 MG in DEXTROSE 5%-WATER 250 ML IV SCH (21:12)
[2020-02-25] MEDS: DEXAMETHASONE SOD PHOSPHATE INJ 4 MG/1 ML VIAL IV SCH (21:12)
[2020-02-25] MEDS: ATORVASTATIN CALCIUM 40 MG TABLET PO SCH (21:12)
[2020-02-26 06:46] LABS: HEMATOCRIT 39.3 % (37.9-51.0); HEMOGLOBIN 13.2 g/dL (13.5-17.0); MEAN CORPUSCULAR HEMOGLOBIN 34.2 pg (27.0-33.4); MEAN CORPUSCULAR HGB CONC 33.5 g/dL (32.0-36.0); MEAN CORPUSCULAR VOLUME 102 fl (80-97); PLATELET COUNT 193 10^3/uL (150-450); RED BLOOD COUNT 3.85 10^6/uL (4.35-5.55); WHITE BLOOD COUNT 10.1 10^3/uL (4.0-10.5)
[2020-02-26 07:07] LABS: ANION GAP 5 (5-19); BLOOD UREA NITROGEN 27 mg/dL (7-20); CALCIUM 8.8 mg/dL (8.4-10.2); CARBON DIOXIDE 36 mmol/L (22-30); CHLORIDE 94 mmol/L (98-107); GLUCOSE 135 mg/dL (75-110); POTASSIUM 4.4 mmol/L (3.6-5.0)
[2020-02-26 07:12] LABS: ABSOLUTE LYMPHOCYTES# (MANUAL) 0.3 10^3/uL (0.5-4.7); ABSOLUTE MONOCYTES # (MANUAL) 0.3 10^3/uL (0.1-1.4); BAND NEUTROPHILS % (MANUAL) 7 % (3-5); BASOPHILS % (MANUAL) 0 % (0-2); EOSINOPHILS % (MANUAL) 0 % (0-6); LYMPHOCYTES % (MANUAL) 3 % (13-45); MONOCYTES % (MANUAL) 3 % (3-13); SEGMENTED NEUTROPHILS % (MAN) 87 % (42-78); TOTAL CELLS COUNTED 100
[2020-02-26 07:13] LABS: ANISOCYTOSIS 1+; PLATELET COMMENT ADEQUATE; POLYCHROMASIA 1+
[2020-02-26] MEDS: ZINC SULFATE 220 MG CAPSULE PO SCH (11:27)
[2020-02-26] MEDS: ASCORBIC ACID 500 MG TABLET PO SCH ×2 (11:27→17:11)
[2020-02-26] MEDS: BUMETANIDE 1 MG TABLET PO SCH (11:27)
[2020-02-26] MEDS: CHOLECALCIFEROL (D3) 1,000 UNIT (25 MCG) TABLET PO SCH ×2 (11:27→17:11)
[2020-02-26] MEDS: ESCITALOPRAM OXALATE 10 MG TABLET PO SCH (11:27)
[2020-02-26] MEDS: FLUTICASONE NASAL SPRAY 50 MCG/SPRY 120 SPRAY/16 GM NAREB SCH ×2 (11:28→21:46)
[2020-02-26] MEDS: ENOXAPARIN SODIUM INJ 40 MG/0.4 ML DISP.SYRIN SUBCUT SCH (11:28)
[2020-02-26] MEDS: FLUTICASONE/VILANTEROL 100-25 MCG/DOSE IH SCH (11:28)
[2020-02-26] MEDS: UMECLIDINIUM BROMIDE 62.5 MCG/DOSE IH SCH (11:28)
--- NOTE | 2020-02-26 17:41 | PDOC PROGRESS REPORT ---
Subjective Subjective:: Patient admitted for acute hypoxemic respiratory failure due to combination COPD and possible COVID-19 pneumonia. COVID-19 testing on admission pending. Patient maintained on BiPAP. Patient intermittently awake and alert, speaking to nursing staff. Potassium and phosphorus rising and d-dimer positive. Ferritin is normal and UA is unremarkable. CRP is normal. Possible the patient does not have coronavirus pneumonia. Other than shortness of breath patient has no new complaints today. 02/26/2020 Patient much more alert and talkative today. Breathing seems to be significantly improved and he is no longer using the BiPAP. He is still using supplemental oxygen nasal cannula at his home dose of 4 L. Patient has massively swollen legs more so on the right leg and when asked about this he states this is chronic and is not any different than it has been for the past few years. His COVID test is just now resulted as negative and he will need to be removed from the coronavirus unit as soon as possible. We will continue steroids and breathing treatments and now we will have access to nebulizer treatments as well to treat his COPD exacerbation. Labs and vitals reviewed and these are stable now. Reason For Visit: COPD EXACERBATION,ACUTE HYPOXEMIC RESP FAILURE Physical Exam Vital Signs: Temp Pulse Resp BP Pulse Ox 98.2 F 83 20 108/67 97 02/26/20 14:25 02/26/20 14:25 02/26/20 14:25 02/26/20 14:25 02/26/20 14:25 Intake & Output 02/25/20 02/26/20 02/27/20 06:59 06:59 06:59 Intake Total 250 250 240 Output Total 0 250 Balance 250 0 240 Weight 96.3 kg 96.3 kg General appearance: PRESENT: no acute distress, well-developed, well-nourished Head exam: PRESENT: atraumatic, normocephalic Eye exam: PRESENT: conjunctiva pink Mouth exam: PRESENT: moist Respiratory exam: PRESENT: wheezes - mild. ABSENT: rales, rhonchi Cardiovascular exam: PRESENT: RRR. ABSENT: diastolic murmur, rubs, systolic murmur GI/Abdominal exam: PRESENT: normal bowel sounds, soft. ABSENT: distended, guarding, mass, organolmegaly, rebound, tenderness Extremities exam: PRESENT: pedal edema, +2 edema - chronic per pt Neurological exam: PRESENT: alert, awake, oriented to person, oriented to place, oriented to time, oriented to situation Psychiatric exam: PRESENT: appropriate affect, normal mood Skin exam: PRESENT: dry, warm Results Laboratory Results: 02/26/20 05:30 02/26/20 05:30 02/26/20 02/26/20 05:30 05:30 WBC 10.1 RBC 3.85 L Hgb 13.2 L Hct 39.3 MCV 102 H MCH 34.2 H MCHC 33.5 RDW 14.0 Plt Count 193 Seg Neutrophils % Not Reportable Sodium 135.4 L Potassium 4.4 Chloride 94 L Carbon Dioxide 36 H Anion Gap 5 BUN 27 H Creatinine 0.68 Est GFR ( Amer) > 60 Glucose 135 H Calcium 8.8 02/24/20 02/24/20 02/24/20 10:47 10:47 10:47 Creatine Kinase 59 CK-MB (CK-2) 2.28 Troponin I < 0.012 NT-Pro-B Natriuret Pep 478 H Impressions: Chest X-Ray 02/24/20 10:32 IMPRESSION: Suspect elevation of the right hemidiaphragm. Consider dedicated PA/ Lat chest imaging when feasible. Chest CT 02/24/20 13:31 IMPRESSION: 1. No acute pulmonary disease. Chronic elevation of the right hemidiaphragm with compressive atelectasis at the right lung base, stable. 2. Background mild pulmonary emphysema. Assessment and Plan - Diagnosis (1) Suspected COVID-19 virus infection Is this a current diagnosis for this admission?: Yes Plan: Recent admission to [facility] for abdominal pain per , possibly contracted COVID there COVID test pending done in ED Admit to COVID unit with contact and respiratory precautions Started on dexamethasone IV 6 mg daily Zinc, vitamin C, vitamin D We will hold off on starting remdesivir until COVID testing has returned given patient seems to be improving on current interventions alone COVID test came back negative as of 02/26/2020, patient ordered to be transferred out of coronavirus unit immediately (2) COPD exacerbation Is this a current diagnosis for this admission?: Yes Plan: Former smoker with longstanding COPD, wheezing on exam Does not use oxygen at baseline prior to admission Duo nebs as needed Continue home Spiriva and albuterol Systemic steroids as above Bronchial hygiene, incentive spirometer Azithromycin This is the primary reason for the patient's respiratory failure, back on his home 4 L nasal cannula supplemental oxygen (3) HTN (hypertension) Is this a current diagnosis for this admission?: Yes (4) HLD (hyperlipidemia) Is this a current diagnosis for this admission?: Yes (5) Former smoker Is this a current diagnosis for this admission?: Yes - Time Time Spent with patient: 35 or more minutes Medications reviewed and adjusted accordingly: Yes Anticipated Discharge Disposition: Home, Self Care Anticipated Discharge Timeframe: within 72 hours - Inpatient Certification Based on my medical assessment, after consideration of the patient's c omorbidities, presenting symptoms, or acuity I expect that the services needed warrant INPATIENT care.: Yes I certify that my determination is in accordance with my understanding of Medicare's requirements for reasonable and necessary INPATIENT services [42 CFR 412.3e].: Yes Medical Necessity: Significant Comorbidiites Make Outpatient Treatment Too Risky, Need Close Monitoring Due to Risk of Patient Decompensation, Need for Nebulizer Therapy and Monitoring of Response, Risk of Complication if Not Cared For in Hospital, Risk of Diagnosis Which Will Require Inpatient Eval/Care/Monitoring
[2020-02-26] MEDS: AZITHROMYCIN 500 MG in DEXTROSE 5%-WATER 250 ML IV SCH (21:45)
[2020-02-26] MEDS: ATORVASTATIN CALCIUM 40 MG TABLET PO SCH (21:45)
[2020-02-27 06:36] LABS: HEMATOCRIT 38.1 % (37.9-51.0); HEMOGLOBIN 12.7 g/dL (13.5-17.0); MEAN CORPUSCULAR HEMOGLOBIN 34.1 pg (27.0-33.4); MEAN CORPUSCULAR HGB CONC 33.2 g/dL (32.0-36.0); MEAN CORPUSCULAR VOLUME 103 fl (80-97); PLATELET COUNT 176 10^3/uL (150-450); RED BLOOD COUNT 3.72 10^6/uL (4.35-5.55); RED CELL DISTRIBUTION WIDTH 13.9 % (11.5-14.0); WHITE BLOOD COUNT 10.1 10^3/uL (4.0-10.5)
[2020-02-27 07:04] LABS: ABSOLUTE LYMPHOCYTES# (MANUAL) 1.8 10^3/uL (0.5-4.7); ABSOLUTE MONOCYTES # (MANUAL) 0.4 10^3/uL (0.1-1.4); BASOPHILS % (MANUAL) 1 % (0-2); EOSINOPHILS % (MANUAL) 1 % (0-6); LYMPHOCYTES % (MANUAL) 18 % (13-45); METAMYELOCYTES % (MANUAL) 1 % (0-1); MONOCYTES % (MANUAL) 4 % (3-13); PLATELET COMMENT ADEQUATE; SEGMENTED NEUTROPHILS % (MAN) 75 % (42-78); TOTAL CELLS COUNTED 100
[2020-02-27 07:06] LABS: OVALOCYTES SLIGHT
[2020-02-27 07:09] LABS: POLYCHROMASIA SLIGHT
[2020-02-27] MEDS: UMECLIDINIUM BROMIDE 62.5 MCG/DOSE IH SCH (10:51)
[2020-02-27] MEDS: ESCITALOPRAM OXALATE 10 MG TABLET PO SCH (10:52)
[2020-02-27] MEDS: CHOLECALCIFEROL (D3) 1,000 UNIT (25 MCG) TABLET PO SCH ×2 (10:53→18:18)
[2020-02-27] MEDS: ZINC SULFATE 220 MG CAPSULE PO SCH (10:53)
[2020-02-27] MEDS: PREDNISONE 20 MG TABLET PO SCH (10:53)
[2020-02-27] MEDS: ASCORBIC ACID 500 MG TABLET PO SCH ×2 (10:53→18:18)
[2020-02-27] MEDS: ENOXAPARIN SODIUM INJ 40 MG/0.4 ML DISP.SYRIN SUBCUT SCH (10:54)
[2020-02-27] MEDS: BUMETANIDE 1 MG TABLET PO SCH (11:05)
[2020-02-27] MEDS: FLUTICASONE NASAL SPRAY 50 MCG/SPRY 120 SPRAY/16 GM NAREB SCH ×2 (12:42→22:23)
[2020-02-27] MEDS: FLUTICASONE/VILANTEROL 100-25 MCG/DOSE IH SCH (12:43)
--- NOTE | 2020-02-27 14:16 | PDOC PROGRESS REPORT ---
Subjective Subjective:: Patient admitted for acute hypoxemic respiratory failure due to combination COPD and possible COVID-19 pneumonia. COVID-19 testing on admission pending. Patient maintained on BiPAP. Patient intermittently awake and alert, speaking to nursing staff. Potassium and phosphorus rising and d-dimer positive. Ferritin is normal and UA is unremarkable. CRP is normal. Possible the patient does not have coronavirus pneumonia. Other than shortness of breath patient has no new complaints today. 02/26/2020 Patient much more alert and talkative today. Breathing seems to be significantly improved and he is no longer using the BiPAP. He is still using supplemental oxygen nasal cannula at his home dose of 4 L. Patient has massively swollen legs more so on the right leg and when asked about this he states this is chronic and is not any different than it has been for the past few years. His COVID test is just now resulted as negative and he will need to be removed from the coronavirus unit as soon as possible. We will continue steroids and breathing treatments and now we will have access to nebulizer treatments as well to treat his COPD exacerbation. Labs and vitals reviewed and these are stable now. 02/27/2020 I discussed the patient's case with physical therapist today and they strongly recommended keeping the patient until they are able to evaluate him tomorrow. There is a strong possibility that they may recommend SNF although the patient has made clear to me that he is refusing this currently. He is very concerned about [place] coronavirus at a rehab facility. He also wanted to make sure we were aware his wedding anniversary is on Friday and he would like to be home for this. His labs and vital signs have been reviewed and they seem to be at or near his baseline. He is continuing to use his 4 L nasal cannula oxygen which he uses at home. No new complaints. Reason For Visit: COPD EXACERBATION,ACUTE HYPOXEMIC RESP FAILURE Physical Exam Vital Signs: Temp Pulse Resp BP Pulse Ox 97.8 F 80 20 119/62 93 02/27/20 12:26 02/27/20 12:26 02/27/20 12:26 02/27/20 12:26 02/27/20 12:26 Intake & Output 02/26/20 02/27/20 02/28/20 06:59 06:59 06:59 Intake Total 250 1410 Output Total 250 Balance 0 1410 Weight 96.3 kg 96.6 kg General appearance: PRESENT: no acute distress, well-developed, well-nourished Head exam: PRESENT: atraumatic, normocephalic Eye exam: PRESENT: conjunctiva pink Mouth exam: PRESENT: moist Respiratory exam: PRESENT: wheezes - Mild wheezing, per patient he wheezes at baseline to some mild degree. ABSENT: rales, rhonchi Cardiovascular exam: PRESENT: RRR. ABSENT: diastolic murmur, rubs, systolic murmur GI/Abdominal exam: PRESENT: normal bowel sounds, soft. ABSENT: distended, guarding, mass, organolmegaly, rebound, tenderness Neurological exam: PRESENT: alert, awake, oriented to person, oriented to place, oriented to time, oriented to situation Psychiatric exam: PRESENT: appropriate affect, normal mood Skin exam: PRESENT: dry, intact, warm Results Laboratory Results: 02/27/20 06:07 02/26/20 05:30 02/27/20 06:07 WBC 10.1 RBC 3.72 L Hgb 12.7 L Hct 38.1 MCV 103 H MCH 34.1 H MCHC 33.2 RDW 13.9 Plt Count 176 Seg Neutrophils % Not Reportable 02/24/20 02/24/20 02/24/20 10:47 10:47 10:47 Creatine Kinase 59 CK-MB (CK-2) 2.28 Troponin I < 0.012 NT-Pro-B Natriuret Pep 478 H Impressions: Chest X-Ray 02/24/20 10:32 IMPRESSION: Suspect elevation of the right hemidiaphragm. Consider dedicated PA/ Lat chest imaging when feasible. Chest CT 02/24/20 13:31 IMPRESSION: 1. No acute pulmonary disease. Chronic elevation of the right hemidiaphragm with compressive atelectasis at the right lung base, stable. 2. Background mild pulmonary emphysema. Assessment and Plan - Diagnosis (1) Fall at home Is this a current diagnosis for this admission?: Yes Plan: Patient sustained a forehead contusion which is currently healing and does not appear to need any stitching as there is no laceration large enough for this. CT head reviewed, no acute findings Physical therapy/Occupational Therapy consult, patient refusing SNF as he is concerned about getting coronavirus (2) COPD exacerbation Is this a current diagnosis for this admission?: Yes Plan: Former smoker with longstanding COPD, wheezing on exam Does not use oxygen at baseline prior to admission Duo nebs as needed Continue home Spiriva and albuterol Systemic steroids as above Bronchial hygiene, incentive spirometer Azithromycin This is the primary reason for the patient's respiratory failure, back on his home 4 L nasal cannula supplemental oxygen Continued on prednisone for 5 days total, mild wheezing at baseline per patient (3) HTN (hypertension) Is this a current diagnosis for this admission?: Yes (4) HLD (hyperlipidemia) Is this a current diagnosis for this admission?: Yes (5) Former smoker Is this a current diagnosis for this admission?: Yes (6) Suspected COVID-19 virus infection Is this a current diagnosis for this admission?: Yes Plan: Recent admission to [facility] for abdominal pain per , possibly contracted COVID there COVID test pending done in ED Admit to COVID unit with contact and respiratory precautions Started on dexamethasone IV 6 mg daily Zinc, vitamin C, vitamin D We will hold off on starting remdesivir until COVID testing has returned given patient seems to be improving on current interventions alone COVID test came back negative as of 02/26/2020, patient ordered to be transferred out of coronavirus unit immediately Out of the coronavirus unit - Time Time Spent with patient: 25-34 minutes Medications reviewed and adjusted accordingly: Yes Anticipated Discharge Disposition: Home with Home Health Anticipated Discharge Timeframe: within 48 hours - Inpatient Certification Based on my medical assessment, after consideration of the patient's comorbidities, presenting symptoms, or acuity I expect that the services needed warrant INPATIENT care.: Yes I certify that my determination is in accordance with my understanding of Medicare's requirements for reasonable and necessary INPATIENT services [42 CFR 412.3e].: Yes Medical Necessity: Significant Comorbidiites Make Outpatient Treatment Too Risky, Need Close Monitoring Due to Risk of Patient Decompensation, Risk of Co mplication if Not Cared For in Hospital, Risk of Diagnosis Which Will Require Inpatient Eval/Care/Monitoring
[2020-02-27] MEDS ORDERED: AZITHROMYCIN INJ 500 MG VIAL IV ONE (22:00)
[2020-02-27] MEDS: AZITHROMYCIN 500 MG in DEXTROSE 5%-WATER 250 ML IV SCH (22:23)
[2020-02-27] MEDS: ATORVASTATIN CALCIUM 40 MG TABLET PO SCH (22:24)
[2020-02-28] MEDS: ZINC SULFATE 220 MG CAPSULE PO SCH (09:26)
[2020-02-28] MEDS: PREDNISONE 20 MG TABLET PO SCH (09:26)
[2020-02-28] MEDS: ESCITALOPRAM OXALATE 10 MG TABLET PO SCH (09:26)
[2020-02-28] MEDS: ASCORBIC ACID 500 MG TABLET PO SCH (09:26)
[2020-02-28] MEDS: CHOLECALCIFEROL (D3) 1,000 UNIT (25 MCG) TABLET PO SCH (09:26)
[2020-02-28] MEDS: FLUTICASONE/VILANTEROL 100-25 MCG/DOSE IH SCH (09:29)
[2020-02-28] MEDS: UMECLIDINIUM BROMIDE 62.5 MCG/DOSE IH SCH (09:29)
[2020-02-28] MEDS: FLUTICASONE NASAL SPRAY 50 MCG/SPRY 120 SPRAY/16 GM NAREB SCH (09:30)
[2020-02-28] MEDS: ENOXAPARIN SODIUM INJ 40 MG/0.4 ML DISP.SYRIN SUBCUT SCH (09:31)
[2020-02-28] MEDS: BUMETANIDE 1 MG TABLET PO SCH (10:10)
--- NOTE | 2020-02-28 13:42 | PDOC DISCHARGE SUMMARY ---
Impression - Admit/DC Date/PCP Admission Date/Primary Care Provider: 02/24/20 19:37 Discharge Date: 02/28/20 - Discharge Diagnosis (1) Fall at home Is this a current diagnosis for this admission?: Yes (2) COPD exacerbation Is this a current diagnosis for this admission?: Yes (3) HTN (hypertension) Is this a current diagnosis for this admission?: Yes (4) HLD (hyperlipidemia) Is this a current diagnosis for this admission?: Yes (5) Former smoker Is this a current diagnosis for this admission?: Yes (6) Suspected COVID-19 virus infection Is this a current diagnosis for this admission?: Yes - Additional Information Resuscitation Status: Full Code Discharge Diet: As Tolerated, Regular Discharge Activity: Activity As Tolerated, Balance Activity w/Rest Referrals: MORELIA WATSON MD [NO LOCAL MD] - 03/08/20 10:00 am Prescriptions: Prednisone [Deltasone 20 mg Tablet] See Protocol PO DAILY #5 tablet Home Medications: Atorvastatin Calcium [Lipitor 40 mg Tablet] 40 mg PO QHS 06/12/19 Budesonide/Formoterol Fumarate [Symbicort HFA 80-4.5 mcg Inhaler 6.9 gm] 2 puff IH Q12 06/12/19 Escitalopram Oxalate [Lexapro 10 mg Tablet] 10 mg PO DAILY 06/12/19 Albuterol Sulfate [Albuterol Sulfate Hfa] 2 puff IH Q6HP PRN 02/24/20 Bumetanide [Bumex 1 mg Tablet] 1 mg PO DAILY 02/24/20 Cholecalciferol (Vitamin D3) [Vitamin D3 1000 Unit Tablet] 5,000 unit PO DAILY 02/24/20 Fluticasone Propionate [Flonase Nasal [place] 50 Mcg/[place] 16 gm] 1 spray NAREB Q12 02/24/20 Ipratropium/Albuterol Sulfate [Duoneb 3 ml Ampul] 3 ml NEB RTQ4HP PRN 02/24/20 Tiotropium [place] [Spiriva Handihaler 5 Cap/Kit (18 Mcg/Cap)] 1 inh IH DAILY 02/24/20 Prednisone [Deltasone 20 mg Tablet] See Protocol PO DAILY #5 tablet 02/28/20 History of Present Illiness History of Present Illness: DAVIDA MCKEON is a 84 year old male Hospital Course Hospital Course: Patient admitted for acute hypoxemic respiratory failure due to combination COPD and possible COVID-19 pneumonia. COVID-19 testing on admission pending. Patient maintained on BiPAP. Patient intermittently awake and alert, speaking to nursing staff. Potassium and phosphorus rising and d-dimer positive. Ferritin is normal and UA is unremarkable. CRP is normal. Possible the patient does not have coronavirus pneumonia. Other than shortness of breath patient has no new complaints today. 02/26/2020 Patient much more alert and talkative today. Breathing seems to be significantly improved and he is no longer using the BiPAP. He is still using supplemental oxygen nasal cannula at his home dose of 4 L. Patient has massively swollen legs more so on the right leg and when asked about this he states this is chronic and is not any different than it has been for the past few years. His COVID test is just now resulted as negative and he will need to be removed from the coronavirus unit as soon as possible. We will continue steroids and breathing treatments and now we will have access to nebulizer treatments as well to treat his COPD exacerbation. Labs and vitals reviewed and these are stable now. 02/27/2020 I discussed the patient's case with physical therapist today and they strongly recommended keeping the patient until they are able to evaluate him tomorrow. There is a strong possibility that they may recommend SNF although the patient has made clear to me that he is refusing this currently. He is very concerned about [place] coronavirus at a rehab facility. He also wanted to make sure we were aware his wedding anniversary is on Friday and he would like to be home for this. His labs and vital signs have been reviewed and they seem to be at or near his baseline. He is continuing to use his 4 L nasal cannula oxygen which he uses at home. No new complaints. (1) Fall at home Is this a current diagnosis for this admission?: Yes Plan: Patient sustained a forehead contusion which is currently healing and does not appear to need any stitching as there is no laceration large enough for this. CT head reviewed, no acute findings Physical therapy/Occupational Therapy consult, patient refusing SNF as he is concerned about getting coronavirus -head with mild contusion, examined by me, no laceration that could be stitched (2) COPD exacerbation Is this a current diagnosis for this admission?: Yes Plan: Former smoker with longstanding COPD, wheezing on exam Does not use oxygen at baseline prior to admission Duo nebs as needed Continue home Spiriva and albuterol Systemic steroids as above Bronchial hygiene, incentive spirometer Azithromycin course completed This is the primary reason for the patient's respiratory failure, back on his home 4 L nasal cannula supplemental oxygen Continued on prednisone taper at DC, mild wheezing at baseline per patient, significantly improved from admit (3) HTN (hypertension) Is this a current diagnosis for this admission?: Yes (4) HLD (hyperlipidemia) Is this a current diagnosis for this admission?: Yes (5) Former smoker Is this a current diagnosis for this admission?: Yes (6) RULED OUT COVID-19 virus infection Is this a current diagnosis for this admission?: Yes Plan: Recent admission to [facility] for abdominal pain per , possibly contracted COVID there COVID test done in ED Admitted initially to COVID unit with contact and respiratory precautions Started on dexamethasone IV 6 mg daily, changed to prednisone Zinc, vitamin C, vitamin D held off on remdesivir as pt did not have a positive test COVID test came back negative as of 02/26/2020, patient ordered to be transferred out of coronavirus unit immediately Out of the coronavirus unit Physical Exam Vital Signs: Temp Pulse Resp BP Pulse Ox 98.0 F 75 19 119/71 92 02/28/20 11:30 02/28/20 12:42 02/28/20 12:42 02/28/20 11:30 02/28/20 12:42 Intake & Output 02/27/20 02/28/20 02/29/20 06:59 06:59 06:59 Intake Total 1410 1310 Balance 1410 1310 Weight 96.6 kg 95.2 kg General appearance: PRESENT: no acute distress, well-developed, well-nourished Head exam: PRESENT: atraumatic, normocephalic Eye exam: PRESENT: conjunctiva pink, EOMI, PERRLA. ABSENT: scleral icterus Mouth exam: PRESENT: moist Respiratory exam: PRESENT: wheezes - minimal, baseline per pt. ABSENT: accessory muscle use, crackles, rales, rhonchi, tachypnea Cardiovascular exam: PRESENT: RRR. ABSENT: diastolic murmur, rubs, systolic murmur GI/Abdominal exam: PRESENT: normal bowel sounds, soft. ABSENT: distended, guarding, mass, organolmegaly, rebound, tenderness Neurological exam: PRESENT: alert, awake, oriented to person, oriented to place, oriented to time, oriented to situation Skin exam: PRESENT: abrasion - very small abrasion on forehead with resolving contusion, dry, warm Results Laboratory Results: WBC 10.1 10^3/uL (4.0-10.5) 02/27/20 06:07 RBC 3.72 10^6/uL (4.35-5.55) L 02/27/20 06:07 Hgb 12.7 g/dL (13.5-17.0) L 02/27/20 06:07 Hct 38.1 % (37.9-51.0) 02/27/20 06:07 MCV 103 fl (80-97) H 02/27/20 06:07 MCH 34.1 pg (27.0-33.4) H 02/27/20 06:07 MCHC 33.2 g/dL (32.0-36.0) 02/27/20 06:07 RDW 13.9 % (11.5-14.0) 02/27/20 06:07 Plt Count 176 10^3/uL (150-450) 02/27/20 06:07 Lymph % (Auto) Not Reportable 02/27/20 06:07 [place] % (Auto) Not Reportable 02/27/20 06:07 Eos % (Auto) Not Reportable 02/27/20 06:07 Baso % (Auto) Not Reportable 02/27/20 06:07 Absolute Neuts (auto) Not Reportable 02/27/20 06:07 Absolute Lymphs (auto) Not Reportable 02/27/20 06:07 Absolute Monos (auto) Not Reportable 02/27/20 06:07 Absolute Eos (auto) Not Reportable 02/27/20 06:07 Absolute Basos (auto) Not Reportable 02/27/20 06:07 Total Counted 100 02/27/20 06:07 Seg Neutrophils % Not Reportable 02/27/20 06:07 Seg Neuts % (Manual) 75 % (42-78) 02/27/20 06:07 Band Neutrophils % 7 % (3-5) H 02/26/20 05:30 Lymphocytes % (Manual) 18 % (13-45) 02/27/20 06:07 Atypical Lymphs % 4 % (0) 02/25/20 04:48 Monocytes % (Manual) 4 % (3-13) 02/27/20 06:07 Eosinophils % (Manual) 1 % (0-6) 02/27/20 06:07 Basophils % (Manual) 1 % (0-2) 02/27/20 06:07 Metamyelocytes % 1 % (0-1) 02/27/20 06:07 Abs Neuts (Manual) 7.7 10^3/uL (1.7-8.2) 02/27/20 06:07 Abs Lymphs (Manual) 1.8 10^3/uL (0.5-4.7) 02/27/20 06:07 Abs Monocytes (Manual) 0.4 10^3/uL (0.1-1.4) 02/27/20 06:07 Absolute Eos (Manual) 0.1 10^3/uL (0.0-0.6) 02/27/20 06:07 Abs Basophils (Manual) 0.1 10^3/uL (0.0-0.2) 02/27/20 06:07 Toxic Granulation 1+ 02/25/20 04:48 Toxic Vacuolation PRESENT 02/25/20 04:48 Platelet Comment ADEQUATE 02/27/20 06:07 Polychromasia SLIGHT 02/27/20 06:07 Anisocytosis 1+ 02/26/20 05:30 Macrocytosis 1+ 02/27/20 06:07 Ovalocytes SLIGHT 02/27/20 06:07 D-Dimer 1.30 ug/mL (0.00-0.50) H 02/24/20 10:47 Sodium 135.4 mmol/L (137-145) L 02/26/20 05:30 Potassium 4.4 mmol/L (3.6-5.0) 02/26/20 05:30 Chloride 94 mmol/L (98-107) L 02/26/20 05:30 Carbon Dioxide 36 mmol/L (22-30) H 02/26/20 05:30 Anion Gap 5 (5-19) 02/26/20 05:30 BUN 27 mg/dL (7-20) H 02/26/20 05:30 Creatinine 0.68 mg/dL (0.52-1.25) 02/26/20 05:30 Est GFR ( Amer) > 60 (>60) 02/26/20 05:30 Est GFR (MDRD) Non-Af > 60 (>60) 02/26/20 05:30 Glucose 135 mg/dL (75-110) H 02/26/20 05:30 Calcium 8.8 mg/dL (8.4-10.2) 02/26/20 05:30 Phosphorus 3.8 mg/dL (2.5-4.5) 02/25/20 04:48 Magnesium 2.4 mg/dL (1.6-2.3) H 02/25/20 04:48 Ferritin 215.00 ng/mL (17.9-464.0) 02/24/20 10:47 Total Bilirubin 0.9 mg/dL (0.2-1.3) 02/24/20 10:47 Direct Bilirubin 0.1 mg/dL (0.0-0.4) 02/24/20 10:47 Neonat Total Bilirubin Not Reportable 02/24/20 10:47 Neonat Direct Bilirubin Not Reportable 02/24/20 10:47 Neonat Indirect Bili Not Reportable 02/24/20 10:47 AST 82 U/L (17-59) H 02/24/20 10:47 ALT 53 U/L (<50) H 02/24/20 10:47 Alkaline Phosphatase 94 U/L (38-126) 02/24/20 10:47 Creatine Kinase 59 U/L (55-170) 02/24/20 10:47 CK-MB (CK-2) 2.28 ng/mL (<4.55) 02/24/20 10:47 Troponin I < 0.012 ng/mL 02/24/20 10:47 C-Reactive Protein 9.7 mg/L (<10.0) 02/24/20 10:47 NT-Pro-B Natriuret Pep 478 pg/mL (<450) H 02/24/20 10:47 Total Protein 6.8 g/dL (6.3-8.2) 02/24/20 10:47 Albumin 3.5 g/dL (3.5-5.0) 02/24/20 10:47 Lipase 74.8 U/L (23-300) 02/25/20 04:48 Urine Color DARK YELLOW 02/24/20 14:30 Urine Appearance SLIGHTLY-CLOUDY 02/24/20 14:30 Urine pH 5.0 (5.0-9.0) 02/24/20 14:30 Ur Specific [place] 1.016 02/24/20 14:30 Urine Protein NEGATIVE mg/dL (NEGATIVE) 02/24/20 14:30 Urine Glucose (UA) NEGATIVE mg/dL (NEGATIVE) 02/24/20 14:30 Urine Ketones NEGATIVE mg/dL (NEGATIVE) 02/24/20 14:30 Urine Blood SMALL (NEGATIVE) H 02/24/20 14:30 Urine Nitrite NEGATIVE (NEGATIVE) 02/24/20 14:30 Urine Bilirubin NEGATIVE (NEGATIVE) 02/24/20 14:30 Urine Urobilinogen 2.0 mg/dL (<2.0) H 02/24/20 14:30 Ur Leukocyte Esterase NEGATIVE (NEGATIVE) 02/24/20 14:30 Urine WBC (Auto) 1 /HPF 02/24/20 14:30 Urine RBC (Auto) 2 /HPF 02/24/20 14:30 U Hyaline Cast (Auto) 1 /LPF 02/24/20 14:30 Squamous Epi Cells Auto <1 /HPF 02/24/20 14:30 Urine Mucus (Auto) MOD /LPF 02/24/20 14:30 Urine Ascorbic Acid NEGATIVE (NEGATIVE) 02/24/20 14:30 COVID-19 Source NASOPHARYNGEAL 02/24/20 17:40 COVID-19 (GERMAN) NOT DETECTED 02/24/20 17:40 Slides for Path Review SEE COMMENT 02/25/20 04:48 02/24/20 02/24/20 10:47 10:47 CK-MB (CK-2) 2.28 Troponin I < 0.012 NT-Pro-B Natriuret Pep 478 H Impressions: Chest X-Ray 02/24/20 10:32 IMPRESSION: Suspect elevation of the right hemidiaphragm. Consider dedicated PA/ Lat chest imaging when feasible. Chest CT 02/24/20 13:31 IMPRESSION: 1. No acute pulmonary disease. Chronic elevation of the right hemidiaphragm with compressive atelectasis at the right lung base, stable. 2. Background mild pulmonary emphysema. Plan Plan of Treatment: Follow-up with PCP Follow-up with pulmonology Outpatient pulmonary rehab Steroid taper Time Spent: Greater than 30 Minutes Stroke Is this a Stroke Patient?: No Acute Heart Failure - Is this a Heart Failure Patient?: No
[2020-02-28 13:43] VITALS: BP 138/76
== END 2020-02-28 14:47 | disposition home health service (06) | DRG 189 ==
LOC: ER 10:24 → EH 19:37 → 3W 02-25 00:15 → 3S 02-26 18:33
PROVIDERS: ADMIT Internal Medicine; ATTEND Internal Medicine
DX: J96.01 Acute respiratory failure with hypoxia (principal); J44.1 Chronic obstructive pulmonary disease with (acute) exacerbation; E78.00 Pure hypercholesterolemia, unspecified; I10 Essential (primary) hypertension; Z20.828 Contact with and (suspected) exposure to other viral communicable diseases; S00.83XA Contusion of other part of head, initial encounter; W18.39XA Other fall on same level, initial encounter; Y93.89 Activity, other specified; Y92.018 Other place in single-family (private) house as the place of occurrence of the external cause; I25.2 Old myocardial infarction; Z95.1 Presence of aortocoronary bypass graft; Z95.5 Presence of coronary angioplasty implant and graft; Z79.51 Long term (current) use of inhaled steroids; Z79.899 Other long term (current) drug therapy; Z87.891 Personal history of nicotine dependence
CPT/HCPCS: 36415; 71045; 71260; 80048; 80053; 81001; 82550; 82553; 82728; 83690; 83735; 83880; 84100; 84484; 85025; 85379; 86140; 87635; 93005; 93010; 94640; 94660; 96374; 99291; C9803; J0456; J1100; J1650; J1940; J3490; J7060; J7512

== ENCOUNTER 2020-03-14 18:50 | Inpatient (IN) | payer MEDICARE, BC ==
[2020-03-14] MEDS ORDERED: IPRATROPIUM/ALBUTEROL 0.5-2.5 MG/3 ML AMPUL NEB ONE ×2 (19:18→19:33)
[2020-03-14 19:22] LABS: HEMOGLOBIN 12.3 g/dL (13.5-17.0); MEAN CORPUSCULAR HEMOGLOBIN 34.6 pg (27.0-33.4); MEAN CORPUSCULAR HGB CONC 33.2 g/dL (32.0-36.0); MEAN CORPUSCULAR VOLUME 104 fl (80-97); PLATELET COUNT 238 10^3/uL (150-450); RED BLOOD COUNT 3.55 10^6/uL (4.35-5.55); RED CELL DISTRIBUTION WIDTH 14.5 % (11.5-14.0); WHITE BLOOD COUNT 12.4 10^3/uL (4.0-10.5)
[2020-03-14 19:48] LABS: ALBUMIN 3.3 g/dL (3.5-5.0); ALKALINE PHOSPHATASE 124 U/L (38-126); ASPARTATE AMINO TRANSFERASE 27 U/L (17-59); BILIRUBIN,DIRECT 0.4 mg/dL (0.0-0.4); BILIRUBIN,TOTAL 1.1 mg/dL (0.2-1.3); BLOOD UREA NITROGEN 19 mg/dL (7-20); CALCIUM 8.6 mg/dL (8.4-10.2); CHLORIDE 93 mmol/L (98-107); CREATINE KINASE 30 U/L (55-170); GLUCOSE 113 mg/dL (75-110); POTASSIUM 4.1 mmol/L (3.6-5.0); TOTAL PROTEIN 6.6 g/dL (6.3-8.2)
[2020-03-14 19:59] LABS: CREATINE KINASE MB 1.25 ng/mL (<4.55)
[2020-03-14 20:05] LABS: ANION GAP 3 (5-19)
[2020-03-14 20:06] LABS: CARBON DIOXIDE 43 mmol/L (22-30)
--- NOTE | 2020-03-14 20:08 | ER Document Report ---
ED General - General Chief Complaint: Shortness Of Breath Stated Complaint: DIFFICULTY BREATHING Time Seen by Provider: 03/14/20 20:07 TRAVEL OUTSIDE OF THE [place] IN LAST 30 DAYS: No - HPI Notes: 85-year-old male presents via EMS from home. Patient states he is not feeling well. He does not expound upon this. HPI is limited. - Related Data Allergies/Adverse Reactions: Penicillins Allergy (Verified 03/14/20 19:42) Sulfa (Sulfonamide Antibiotics) Allergy (Verified 03/14/20 19:42) Past Medical History - Social History Smoking Status: Former Smoker Chew tobacco use (# tins/day): No Frequency of alcohol use: None Drug Abuse: Bath salts Family History: Reviewed & Not Pertinent - Past Medical History Cardiac Medical History: Reports: Hx Heart Attack - x2, Hx Hypercholesterolemia, Hx Hypertension Pulmonary Medical History: Reports: Hx COPD Psychiatric Medical History: Reports: Hx Depression Past Surgical History: Reports: Hx Cardiac Catheterization, Hx Coronary Stent, Hx Orthopedic Surgery - Back surgery for spinal stenosis on 08/23/2015 Review of Systems - Review of Systems -: Yes ROS unobtainable due to patient's medical condition Physical Exam - Vital signs Vitals: Temp 98.7 F 03/14/20 18:50 - General Notes: Chronically ill-appearing, intermittent somnolence, will awake and say he is not feeling well - HEENT Head: Normocephalic, Atraumatic Pupils: PERRL - Respiratory Respiratory status: Tachypnea. No: Cyanosis Breath sounds: Rales, Rhonchi - Cardiovascular Rhythm: Other - Normal rate, regular rhythm Murmur: Yes - Abdominal Distension: No distension Tenderness: Nontender - Extremities Notes: Pitting edema to the right lower extremity, erythema, temperature similar to left leg - Neurological Notes: Face symmetric, speech clear, moves all extremities, full neuro exam limited at this time due to patient condition - Skin Skin Temperature: Warm Course - Re-evaluation Re-evalutation: 03/14/20 20:25 85-year-old male here for reported shortness of breath, per chart review he is on hospice for end-stage COPD. On exam he is mostly somnolent, however will awaken and just say he is not feeling well. Rales at bases, rhonchi upper. He is on 4 L nasal cannula satting 93 to 94%, comfortable with this given his COPD status. Additionally has pitting edema and erythema to his right lower extremity. Concern for possible DVT, ultrasound ordered. In terms of his respiratory status, concern for CHF exacerbation versus COPD exacerbation versus pneumonia versus pulmonary embolism. CTA chest ordered to assess. Will start with 1 mg Bumex as CXR appears to have pulm edema. He has received neb treatments prior to my evaluation. 03/14/20 21:05 Venous PCO2 97, there is a mild respiratory acidosis, has elevated bicarb. Suspect acute on chronic. Have ordered BiPAP 03/14/20 21:44 No central PE seen on CTA. Per medical office technology instructor, no visualized DVT, will await final read. Will cover with Ancef for right lower extremity cellulitis. I went in to check on the patient, he is more alert and communicative now that he has been on BiPAP. Discussed with him need for admission. 03/14/20 21:[address] Diallo, will be admitted to IMCU - Vital Signs Vital signs: Temp Pulse Resp BP Pulse Ox 98.7 F 28 H 117/28 L 89 L 03/14/20 18:50 03/14/20 20:31 03/14/20 20:31 03/14/20 20:09 - Laboratory Result Diagrams: 03/14/20 18:56 03/14/20 18:56 Laboratory results interpreted by me: 03/14/20 03/14/20 03/14/20 18:56 18:56 18:56 WBC 12.4 H RBC 3.55 L Hgb 12.3 L Hct 37.0 L MCV 104 H MCH 34.6 H RDW 14.5 H Seg Neuts % (Manual) 85 H Lymphocytes % (Manual) 9 L Abs Neuts (Manual) 10.5 H VBG pH VBG pCO2 VBG HCO3 Chloride 93 L Carbon Dioxide 43 H* Anion Gap 3 L Glucose 113 H Creatine Kinase 30 L NT-Pro-B Natriuret Pep 1580 H Albumin 3.3 L 03/14/20 18:56 WBC RBC Hgb Hct MCV MCH RDW Seg Neuts % (Manual) Lymphocytes % (Manual) Abs Neuts (Manual) VBG pH 7.27 L VBG pCO2 97.0 H* VBG HCO3 43.1 H Chloride Carbon Dioxide Anion Gap Glucose Creatine Kinase NT-Pro-B Natriuret Pep Albumin - Diagnostic Test Radiology reviewed: Image reviewed, Reports reviewed Discharge - Discharge Clinical Impression: Acute and chronic respiratory failure with hypercapnia, Cellulitis of right leg Pulmonary edema Qualifiers: Chronicity: acute Qualified Code(s): J81.0 - Acute pulmonary edema Disposition: ADMITTED INPATIENT Admitting Provider: Yoel (Hospitalist) Unit Admitted: [facility]
[2020-03-14 20:10] LABS: TROPONIN I 0.035 ng/mL
[2020-03-14 20:12] LABS: ABSOLUTE LYMPHOCYTES# (MANUAL) 1.1 10^3/uL (0.5-4.7); ABSOLUTE MONOCYTES # (MANUAL) 0.6 10^3/uL (0.1-1.4); BASOPHILS % (MANUAL) 0 % (0-2); EOSINOPHILS % (MANUAL) 1 % (0-6); LYMPHOCYTES % (MANUAL) 9 % (13-45); MONOCYTES % (MANUAL) 5 % (3-13); SEGMENTED NEUTROPHILS % (MAN) 85 % (42-78); TOTAL CELLS COUNTED 100
[2020-03-14 20:13] LABS: ANISOCYTOSIS SLIGHT; PLATELET CLUMPS PRESENT; PLATELET COMMENT ADEQUATE; PLATELET LARGE PRESENT
[2020-03-14] MEDS ORDERED: BUMETANIDE INJ/PF 1 MG/4 ML SDV IV ONE (20:22)
--- NOTE | 2020-03-14 20:36 | RADIOLOGY REPORT (SQ) ---
EXAM DESCRIPTION: XR CHEST 1 VIEW COMPLETED DATE/TME: 03/14/2020 19:07 CLINICAL HISTORY: 85 years, Male, bed 5 short of breath COMPARISON: Multiple priors, most recent from 02/24/2020 NUMBER OF VIEWS: One TECHNIQUE: Single frontal view of the chest was obtained portably LIMITATIONS: None. FINDINGS: Cardiopericardial silhouette is enlarged. Mediastinal contours are stable. The right hemidiaphragm is elevated, unchanged from the prior. Bilateral perihilar opacity with vascular testing this is noted along with bibasilar airspace disease. No pneumothorax. There is likely a trace right pleural effusion. IMPRESSION: Overall, findings suggest pulmonary edema. Superimposed more confluent bibasilar airspace disease could indicate additional edema, pneumonia, and/or atelectasis. copyright 2011 [employer]- All Rights Reserved
[2020-03-14 20:57] LABS: VENOUS BLOOD BASE EXCESS 11.7 mmol/L; VENOUS BLOOD HCO3 43.1 mmol/L (20-32); VENOUS BLOOD PH 7.27 (7.30-7.42)
--- NOTE | 2020-03-14 21:22 | RADIOLOGY REPORT (SQ) ---
CLINICAL INDICATION: SOB, hypoxia, eval PE. . TECHNIQUE: CT arteriography was obtained of the chest with multiplanar MIP and/or 3-D angiographic reconstructions. This exam was performed according to our departmental dose-optimization program, which includes automated exposure control, adjustment of the mA and/or kV according to patient size and/or use of iterative reconstruction techniques. COMPARISON: None. CORRELATION: None. FINDINGS: Adequate contrast bolus. Average Hounsfield unit measurement within main pulmonary artery segment of 392. Artifact from venous opacification. Artifact from the patient's arms. Imaging is degraded by patient motion, with resultant artifact. The best possible images were obtained. There is no evidence of pulmonary embolus. Small branch vessels particularly the bases are not well seen. Thoracic aorta is of normal caliber. The heart is enlarged with coronary calcification. No pericardial effusion. No bulky mediastinal adenopathy. The lungs demonstrate progressive interstitial and airspace disease. No effusion. No pneumothorax. Visualized abdominal contents demonstrate hepatic steatosis.. Prominent left renal pelvis, similar to prior. 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 Scoliosis. Arthropathy rather prominent of the left shoulder. 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 IMPRESSION: Artifact from the patient's arms. Imaging is degraded by patient motion, with resultant artifact. The best possible images were obtained. No central pulmonary embolus. Progressive interstitial and airspace disease, bilaterally. .
[2020-03-14] MEDS ORDERED: CEFAZOLIN 2 GM/D5W RTU 2 GM/50 ML RTUPB IV ONE (21:44)
[2020-03-14] MEDS ORDERED: LIDOCAINE 2% URO-JET 5 ML KIT MM ONE (21:54)
--- NOTE | 2020-03-14 22:17 | RADIOLOGY REPORT (SQ) ---
US LOWER EXTREMITY VEINS HISTORY: Leg pain and swelling. COMPARISON: None. TECHNIQUE: Grayscale, color Doppler, and spectral Doppler images of the right lower extremity were performed. FINDINGS: The common femoral, superficial femoral and popliteal veins are patent and compressible. Normal augmentation and color Doppler blood flow in the aforementioned veins. The visualized calf veins are also patent. Diffuse subcutaneous edema is present. IMPRESSION: No DVT in the right lower extremity.
[2020-03-14] MEDS ORDERED: CEFAZOLIN INJ 1 GM VIAL IV ONE (22:32)
[2020-03-14 22:35] LABS: APPEARANCE,URINE CLEAR; BILIRUBIN,URINE NEGATIVE (NEGATIVE); COLOR,URINE STRAW; GLUCOSE, URINE NEGATIVE (NEGATIVE); KETONES,URINE NEGATIVE (NEGATIVE); LEUKOCYTE ESTERASE,URINE NEGATIVE (NEGATIVE); NITRITE,URINE NEGATIVE (NEGATIVE); PROTEIN,URINE NEGATIVE (NEGATIVE); URINE SPECIFIC GRAVITY 1.012; UROBILINOGEN,URINE NEGATIVE mg/dL (<2.0)
[2020-03-14] MEDS ORDERED: MAG HYDROX/AL HYDROX/SIMETH SUSP 30 ML UDCUP PO PRN (22:56)
[2020-03-14] MEDS ORDERED: MAGNESIUM HYDROXIDE SUSP 30 ML UDCUP PO PRN (22:56)
[2020-03-14] MEDS ORDERED: ACETAMINOPHEN 325 MG TABLET PO PRN (22:56)
[2020-03-14] MEDS ORDERED: ONDANSETRON HCL INJ/PF 4 MG/2 ML SDV IV PRN (22:56)
[2020-03-14] MEDS ORDERED: GUAIFENESIN SYRP 200 MG/10 ML UDC PO PRN (23:02)
[2020-03-14] MEDS ORDERED: ACETAMINOPHEN 650 MG SUPP.RECT PR PRN (23:02)
[2020-03-14] MEDS ORDERED: MELATONIN 5 MG TABLET PO PRN (23:02)
[2020-03-14 23:38] LABS: ARTERIAL BLOOD H2CO3 2.16 mmol/L (1.05-1.35); ARTERIAL BLOOD HCO3 40.5 mmol/L (20-24); ARTERIAL BLOOD O2 SATURATION 89.8 % (94-98); ARTERIAL BLOOD PH 7.37 (7.35-7.45); ARTERIAL BLOOD PO2 61.4 mmHg (80-100); ARTERIAL BLOOD TOTAL CO2 42.7 mmol/L (23-27)
[2020-03-14 23:40] LABS: ARTERIAL BLOOD FIO2 45%; ARTERIAL BLOOD PCO2 71.9 mmHg (35-45)
[2020-03-15] MEDS: LEVALBUTEROL HCL NEB 1.25 MG/3 ML AMPUL NEB SCH ×3 (00:37→16:54)
[2020-03-15] MEDS: IPRATROPIUM BROMIDE 0.02% NEB 0.5 MG/2.5 ML AMPUL NEB SCH ×3 (00:37→16:54)
--- NOTE | 2020-03-15 05:16 | PDOC H&P ---
History of Present Illness Admission Date/PCP: 03/14/2020 22:21 No local PCP Patient complains of: Dyspnea History of Present Illness: DAVIDA MCKEON is a 85 year old male who presented to the emergency room with acute dyspnea. The patient is confused and somnolent and unable to provide historical input into his medical care. His admitted that he had become increasingly dyspneic beginning this morning with a concomitant decrease in his alertness causing her concern. She admits he has a history of COPD and prior similar episodes. She was unable to identify any aggravating or ameliorating factors for his dyspnea. In the emergency room patient was found to have pulmonary edema by chest x-ray and was noted to be hypoxic and hypercapnic requiring BiPAP. He was given IV Bumex and subsequently was admitted to the hospital for further evaluation and treatment. Past Medical History Past Medical History: Due to the patient's acute mental status changes information here is obtained from the best available reliable source. Cardiac Medical History: Reports: Coronary Artery Disease, Myocardial Infarction - x2, Hyperlipidema, Hypertension Denies: Atrial Fibrillation Pulmonary Medical History: Reports: Chronic Obstructive Pulmonary Disease (COPD), Respiratory Failure - Chronic EENT Medical History: Denies: Ears - Hearing aids Neurological Medical History: Denies: Hemorrhagic CVA, Ischemic CVA, Seizures Endocrine Medical History: Denies: Diabetes Mellitus Type 1, Diabetes Mellitus Type 2, Hyperthyroidism, Hypothyroidism Renal/ Medical History: Denies: Chronic Kidney Disease, Nephrolithiasis Malignancy Medical History: Reports: None GI Medical History: Denies: Cirrhosis, Hepatitis Musculoskeltal Medical History: Denies: Fibromyalgia, Gout Skin Medical History: Denies: Eczema, Psoriasis Psychiatric Medical History: Reports: Depression, Tobacco Dependency Denies: Alcohol Dependency, Substance Abuse Traumatic Medical History: Reports: None Hematology: Denies: Anemia, Bleeding Tendencies Infectious Medical History: Reports: None Past Surgical History Past Surgical History: Due to the patient's acute mental status changes information here is obtained from the best available reliable source. Past Surgical History: Reports: Cardiac Catheterization, Coronary Stent, Orthopedic Surgery - Back surgery for spinal stenosis on 08/23/2015 Social History Information Source: [facility] Records Lives with: Spouse/Significant other Smoking Status: Former Smoker Electronic Cigarette use?: No Frequency of Alcohol Use: None Hx Recreational Drug Use: No Drugs: None Hx Prescription Drug Abuse: No Past Social History Note: Due to the patient's acute mental status changes information here is obtained from the best available reliable source. - Advance Directive Resuscitation Status: Full Code Surrogate healthcare decision maker:: Ness Lindquist Family History Family History: Other - No reliable family history is available Family History: Due to the patient's acute mental status changes information here is obtained from the best available reliable source. Parental Family History Reviewed: No Children Family History Reviewed: No Sibling(s) Family History Reviewed.: No Medication/Allergy Home Medications: Atorvastatin Calcium [Lipitor 40 mg Tablet] 40 mg PO QHS 06/12/19 Budesonide/Formoterol Fumarate [Symbicort HFA 80-4.5 mcg Inhaler 6.9 gm] 2 puff IH Q12 06/12/19 Escitalopram Oxalate [Lexapro 10 mg Tablet] 10 mg PO DAILY 06/12/19 Albuterol Sulfate [Albuterol Sulfate Hfa] 2 puff IH Q6HP PRN 02/24/20 Bumetanide [Bumex 1 mg Tablet] 1 mg PO DAILY 02/24/20 Cholecalciferol (Vitamin D3) [Vitamin D3 1000 Unit Tablet] 5,000 unit PO DAILY 02/24/20 Fluticasone Propionate [Flonase Nasal [place] 50 Mcg/[place] 16 gm] 1 spray NAREB Q12 02/24/20 Ipratropium/Albuterol Sulfate [Duoneb 3 ml Ampul] 3 ml NEB RTQ4HP PRN 02/24/20 Tiotropium [place] [Spiriva Handihaler 5 Cap/Kit (18 Mcg/Cap)] 1 inh IH DAILY 02/24/20 Prednisone [Deltasone 20 mg Tablet] See Protocol PO DAILY #5 tablet 02/28/20 Allergies/Adverse Reactions: Penicillins Allergy (Verified 03/14/20 19:42) Sulfa (Sulfonamide Antibiotics) Allergy (Verified 03/14/20 19:42) Review of Systems ROS unobtainable: Due to mental status - CO2 narcosis Physical Exam Vital Signs: Temp Pulse Resp BP Pulse Ox 98.7 F 28 H 117/28 L 89 L 03/14/20 18:50 03/14/20 20:31 03/14/20 20:31 03/14/20 20:09 Intake & Output 03/12/20 03/13/20 03/14/20 23:59 23:59 23:59 Weight 90 kg General appearance: PRESENT: no acute distress, cooperative, other - On BiPAP at the time of exam Head exam: PRESENT: atraumatic, normocephalic Eye exam: PRESENT: conjunctiva pink. ABSENT: conjunctival injection, scleral icterus Ear exam: PRESENT: normal external ear exam. ABSENT: bleeding, drainage Mouth exam: PRESENT: dry mucosa, neck supple Neck exam: PRESENT: JVD - Bilateral at 30 degrees elevation. ABSENT: thyromegaly, tracheal deviation Respiratory exam: PRESENT: decreased breath sounds - Markedly decreased breath s ounds at the bilateral base, rales - Fine bibasilar rales in the lower one third of both lung goldstein, symmetrical Cardiovascular exam: PRESENT: gallop - S4 gallop rhythm, RRR. ABSENT: clicks, rubs Pulses: PRESENT: normal carotid pulses, normal radial pulses Vascular exam: PRESENT: normal capillary refill GI/Abdominal exam: PRESENT: normal bowel sounds, soft Rectal exam: PRESENT: deferred Extremities exam: PRESENT: +2 edema - Bilateral lower extremities with 2+ pitting edema up to the distal thigh. ABSENT: joint swelling Musculoskeletal exam: ABSENT: deformity, dislocation Neurological exam: PRESENT: altered - Confused and lethargic, CN II-XII grossly intact - To limited gross exam, other - Lethargic but arousable Psychiatric exam: PRESENT: other - Lethargic and confused Skin exam: PRESENT: dry, intact, warm, other - Skin changes (erythema) of the right lower extremity consistent with venous stasis.. ABSENT: jaundice, rash, urticaria Results Laboratory Results: 03/14/20 18:56 03/14/20 18:56 03/14/20 03/14/20 03/14/20 18:56 18:56 18:56 WBC 12.4 H RBC 3.55 L Hgb 12.3 L Hct 37.0 L MCV 104 H MCH 34.6 H MCHC 33.2 RDW 14.5 H Plt Count 238 Seg Neutrophils % Not Reportable VBG pH 7.27 L VBG pCO2 97.0 H* VBG HCO3 43.1 H VBG Base Excess 11.7 Sodium 139.4 Potassium 4.1 Chloride 93 L Carbon Dioxide 43 H* Anion Gap 3 L BUN 19 Creatinine 0.71 Est GFR ( Amer) > 60 Glucose 113 H Calcium 8.6 Total Bilirubin 1.1 AST 27 Alkaline Phosphatase 124 Total Protein 6.6 Albumin 3.3 L 03/14/20 03/14/20 03/14/20 18:56 18:56 18:56 Creatine Kinase 30 L CK-MB (CK-2) 1.25 Troponin I 0.035 NT-Pro-B Natriuret Pep 1580 H Impressions: Chest X-Ray 03/14/20 19:07 IMPRESSION: Overall, findings suggest pulmonary edema. Superimposed more confluent bibasilar airspace disease could indicate additional edema, pneumonia, and/or atelectasis. copyright 2011 [employer]- All Rights Reserved Chest/Abdomen CTA 03/14/20 20:18 IMPRESSION: Artifact from the patient's arms. Imaging is degraded by patient motion, with resultant artifact. The best possible images were obtained. No central pulmonary embolus. Progressive interstitial and airspace disease, bilaterally. . Venous Doppler Study 03/14/20 20:18 IMPRESSION: No DVT in the right lower extremity. Assessment and Plan - Diagnosis (1) Acute congestive heart failure Qualifiers: Heart failure type: unspecified Qualified Code(s): I50.9 - Heart failure, unspecified Is this a current diagnosis for this admission?: Yes (2) Acute pulmonary edema with congestive heart failure Is this a current diagnosis for this admission?: Yes (3) Acute on chronic respiratory failure with hypoxia and hypercapnia Is this a current diagnosis for this admission?: Yes (4) Chronic obstructive pulmonary disease Qualifiers: COPD type: unspecified COPD Qualified Code(s): J44.9 - Chronic obstructive pulmonary disease, unspecified Is this a current diagnosis for this admission?: Yes (5) Coronary artery disease Qualifiers: Coronary Disease-Associated Artery/Lesion type: [place] artery [place] vs. transplanted heart: [place] heart Associated angina: without angina Qualified Code(s): I25.10 - Atherosclerotic heart disease of [place] coronary artery without angina pectoris Is this a current diagnosis for this admission?: Yes (6) HTN (hypertension) Qualifiers: Hypertension type: essential hypertension Qualified Code(s): I10 - Essential (primary) hypertension Is this a current diagnosis for this admission?: Yes (7) HLD (hyperlipidemia) Qualifiers: Hyperlipidemia type: unspecified Qualified Code(s): E78.5 - Hyperlipidemia, unspecified Is this a current diagnosis for this admission?: Yes - Plan Summary Summary: Patient will be admitted to the [facility] where he received routine supportive and symptomatic cares on the congestive heart failure protocol. Routine laboratory, ultrasound and radiographic evaluations will be obtained per protocol. Patient will be treated with morphine sulfate 2 mg IV every hour as needed severe dyspnea. He will be treated with diuretics using Bumex 1 mg IV every 12 hours. Cardiology consultation will be obtained with Dr. Vega. He will be on a cardiac diet. He will receive supplemental oxygen and noninvasive airway pressure support with BiPAP as required to maintain an adequate oxygen saturation and alleviate his hypercapnia. - Time Time Spent with patient: Less than 15 minutes Medications reviewed and adjusted accordingly: Yes Anticipated Discharge Disposition: Home with Hospice Anticipated Discharge Timeframe: within 72 hours - Inpatient Certification Based on my medical assessment, after consideration of the patient's comorbidities, presenting symptoms, or acuity I expect that the services needed warrant INPATIENT care.: Yes I certify that my determination is in accordance with my understanding of [employer] 's requirements for reasonable and necessary INPATIENT services [42 CFR 412.3e].: Yes Medical Necessity: Significant Comorbidiites Make Outpatient Treatment Too Risky, Need Close Monitoring Due to Risk of Patient Decompensation, Need For Continuous Telemetry Monitoring, Risk of Complication if Not Cared For in Hospital, Risk of Diagnosis Which Will Require Inpatient Eval/Care/Monitoring
[2020-03-15] MEDS: BUMETANIDE INJ/PF 1 MG/4 ML SDV IV SCH ×3 (05:30→22:30)
[2020-03-15] MEDS: MORPHINE SULFATE 10 MG/ML INJ IV PRN (05:31)
[2020-03-15] MEDS: HEPARIN SOD (PORCINE) 5,000 UNIT/ML 1 ML VIAL SUBCUT SCH ×3 (05:31→22:30)
[2020-03-15 05:41] LABS: HEMOGLOBIN 12.6 g/dL (13.5-17.0); MEAN CORPUSCULAR HEMOGLOBIN 34.6 pg (27.0-33.4); MEAN CORPUSCULAR HGB CONC 33.3 g/dL (32.0-36.0); MEAN CORPUSCULAR VOLUME 104 fl (80-97); PLATELET COUNT 238 10^3/uL (150-450); RED BLOOD COUNT 3.65 10^6/uL (4.35-5.55); RED CELL DISTRIBUTION WIDTH 14.3 % (11.5-14.0); WHITE BLOOD COUNT 13.4 10^3/uL (4.0-10.5)
[2020-03-15 05:54] LABS: BLOOD UREA NITROGEN 17 mg/dL (7-20); CALCIUM 8.8 mg/dL (8.4-10.2); CHLORIDE 93 mmol/L (98-107); CREATINE KINASE 25 U/L (55-170); GLUCOSE 110 mg/dL (75-110); POTASSIUM 3.9 mmol/L (3.6-5.0)
[2020-03-15 06:01] LABS: ABSOLUTE LYMPHOCYTES# (MANUAL) 1.1 10^3/uL (0.5-4.7); ABSOLUTE MONOCYTES # (MANUAL) 0.7 10^3/uL (0.1-1.4); BAND NEUTROPHILS % (MANUAL) 7 % (3-5); BASOPHILS % (MANUAL) 0 % (0-2); EOSINOPHILS % (MANUAL) 1 % (0-6); LYMPHOCYTES % (MANUAL) 7 % (13-45); MONOCYTES % (MANUAL) 5 % (3-13); SEGMENTED NEUTROPHILS % (MAN) 79 % (42-78); TOTAL CELLS COUNTED 100
[2020-03-15 06:03] LABS: ANION GAP 7 (5-19); ANISOCYTOSIS SLIGHT; PLATELET COMMENT ADEQUATE
[2020-03-15 06:05] LABS: CARBON DIOXIDE 42 mmol/L (22-30)
[2020-03-15 06:06] LABS: CREATINE KINASE MB 0.94 ng/mL (<4.55); TROPONIN I 0.031 ng/mL
[2020-03-15] MEDS: BUDESONIDE NEB 0.5 MG/2 ML AMPUL NEB SCH ×2 (08:23→20:18)
--- NOTE | 2020-03-15 11:11 | PDOC PROGRESS REPORT ---
Subjective Progress Note for:: 03/15/20 Subjective:: 85 year old male who presented to the emergency room with acute dyspnea. The patient is confused and somnolent and unable to provide historical input into his medical care. His admitted that he had become increasingly dyspneic beginning this morning with a concomitant decrease in his alertness causing her concern. She admits he has a history of COPD and prior similar episodes. She was unable to identify any aggravating or ameliorating factors for his dyspnea. In the emergency room patient was found to have pulmonary edema by chest x-ray and was noted to be hypoxic and hypercapnic requiring BiPAP. He was given IV Bumex and subsequently was admitted to the hospital for further evaluation and treatment. [birth year]/15/[birth year]59-22-mkwy-old male admitted with change in mental status and acute on chronic respiratory failure. Found to have a CHF exacerbation, COPD exacerbation. Patient's revoked hospice. Patient is presently on BiPAP. At the time of my examination he is more alert more awake. Discussed the plan of care with patient's daughter Caro. Consultation with cardiology is requested. Reason For Visit: ACUTE CONGESTIVE HEART FAILURE,ACUTE PULMONARY Physical Exam Vital Signs: Temp Pulse Resp BP Pulse Ox 97.6 F 90 22 H 108/57 L 92 03/15/20 07:45 03/15/20 08:23 03/15/20 08:23 03/15/20 07:45 03/15/20 08:23 Intake & Output 03/14/20 03/15/20 03/16/20 06:59 06:59 06:59 Intake Total 100 Output Total 950 Balance -850 Weight 94.3 kg General appearance: PRESENT: obese, other - Moderate distress Head exam: PRESENT: atraumatic Eye exam: PRESENT: conjunctiva pink, PERRLA Ear exam: PRESENT: normal external ear exam Mouth exam: PRESENT: neck supple Teeth exam: PRESENT: poor dentation Neck exam: PRESENT: JVD Respiratory exam: PRESENT: decreased breath sounds, rales Cardiovascular exam: PRESENT: RRR. ABSENT: diastolic murmur, rubs, systolic murmur GI/Abdominal exam: PRESENT: normal bowel sounds, soft. ABSENT: distended, guarding, mass, organolmegaly, rebound, tenderness Rectal exam: PRESENT: deferred Extremities exam: PRESENT: +2 edema Neurological exam: PRESENT: alert, awake, oriented to person, oriented to place, oriented to time, oriented to situation, CN II-XII grossly intact. ABSENT: motor sensory deficit Results Laboratory Results: 03/15/20 05:27 03/15/20 05:27 03/14/20 03/14/20 03/14/20 18:56 18:56 18:56 WBC 12.4 H RBC 3.55 L Hgb 12.3 L Hct 37.0 L MCV 104 H MCH 34.6 H MCHC 33.2 RDW 14.5 H Plt Count 238 Seg Neutrophils % Not Reportable Carbonic Acid HCO3/H2CO3 Ratio ABG pH ABG pCO2 ABG pO2 ABG HCO3 ABG O2 Saturation ABG Base Excess VBG pH 7.27 L VBG pCO2 97.0 H* VBG HCO3 43.1 H VBG Base Excess 11.7 FiO2 Sodium 139.4 Potassium 4.1 Chloride 93 L Carbon Dioxide 43 H* Anion Gap 3 L BUN 19 Creatinine 0.71 Est GFR ( Amer) > 60 Glucose 113 H Calcium 8.6 Magnesium Total Bilirubin 1.1 AST 27 Alkaline Phosphatase 124 Total Protein 6.6 Albumin 3.3 L TSH Urine Color Urine Appearance Urine pH Ur Specific [place] Urine Protein Urine Glucose (UA) Urine Ketones Urine Blood Urine Nitrite Ur Leukocyte Esterase Urine WBC (Auto) Urine RBC (Auto) 03/14/20 03/14/20 03/15/20 22:22 23:27 05:27 WBC RBC Hgb Hct MCV MCH MCHC RDW Plt Count Seg Neutrophils % Carbonic Acid 2.16 H HCO3/H2CO3 Ratio 18:1 ABG pH 7.37 ABG pCO2 71.9 H* ABG pO2 61.4 L ABG HCO3 40.5 H ABG O2 Saturation 89.8 L ABG Base Excess 12.0 VBG pH VBG pCO2 VBG HCO3 VBG Base Excess FiO2 45% Sodium 141.8 Potassium 3.9 Chloride 93 L Carbon Dioxide 42 H* Anion Gap 7 BUN 17 Creatinine 0.60 Est GFR ( Amer) > 60 Glucose 110 Calcium 8.8 Magnesium 2.2 Total Bilirubin AST Alkaline Phosphatase Total Protein Albumin TSH Urine Color STRAW Urine Appearance CLEAR Urine pH 5.0 Ur Specific [place] 1.012 Urine Protein NEGATIVE Urine Glucose (UA) NEGATIVE Urine Ketones NEGATIVE Urine Blood NEGATIVE Urine Nitrite NEGATIVE Ur Leukocyte Esterase NEGATIVE Urine WBC (Auto) 0 Urine RBC (Auto) 0 03/15/20 03/15/20 05:27 05:27 WBC 13.4 H RBC 3.65 L Hgb 12.6 L Hct 38.0 MCV 104 H MCH 34.6 H MCHC 33.3 RDW 14.3 H Plt Count 238 Seg Neutrophils % Not Reportable Carbonic Acid HCO3/H2CO3 Ratio ABG pH ABG pCO2 ABG pO2 ABG HCO3 ABG O2 Saturation ABG Base Excess VBG pH VBG pCO2 VBG HCO3 VBG Base Excess FiO2 Sodium Potassium Chloride Carbon Dioxide Anion Gap BUN Creatinine Est GFR ( Amer) Glucose Calcium Magnesium Total Bilirubin AST Alkaline Phosphatase Total Protein Albumin TSH 1.72 Urine Color Urine Appearance Urine pH Ur Specific [place] Urine Protein Urine Glucose (UA) Urine Ketones Urine Blood Urine Nitrite Ur Leukocyte Esterase Urine WBC (Auto) Urine RBC (Auto) 03/14/20 03/14/20 03/14/20 18:56 18:56 18:56 Creatine Kinase 30 L CK-MB (CK-2) 1.25 Troponin I 0.035 NT-Pro-B Natriuret Pep 1580 H 03/14/20 03/14/20 03/15/20 22:45 23:56 05:27 Creatine Kinase 25 L CK-MB (CK-2) Troponin I Cancelled 0.032 NT-Pro-B Natriuret Pep 03/15/20 05:27 Creatine Kinase CK-MB (CK-2) 0.94 Troponin I 0.031 NT-Pro-B Natriuret Pep Impressions: Chest X-Ray 03/14/20 19:07 IMPRESSION: Overall, findings suggest pulmonary edema. Superimposed more confluent bibasilar airspace disease could indicate additional edema, pneumonia, and/or atelectasis. copyright 2011 [facility] [employer]- All Rights Reserved Chest/Abdomen CTA 03/14/20 20:18 IMPRESSION: Artifact from the patient's arms. Imaging is degraded by patient motion, with resultant artifact. The best possible images were obtained. No central pulmonary embolus. Progressive interstitial and airspace disease, bilaterally. . Venous Doppler Study 03/14/20 20:18 IMPRESSION: No DVT in the right lower extremity. Assessment and Plan - Diagnosis (1) Acute congestive heart failure Qualifiers: Heart failure type: unspecified Qualified Code(s): I50.9 - Heart failure, unspecified Is this a current diagnosis for this admission?: Yes Plan: 03/15/[id number]-gqrd-old male with history of CHF admitted with a CHF exacerbation. Echocardiogram is requested. Consultation with Dr. Martin is requested. Plan is to continue Bumex 1 mg IV every 12 hours at this time. (2) Acute and chronic respiratory failure with hypercapnia Is this a current diagnosis for this admission?: Yes Plan: 03/15/2020-patient admitted with acute on chronic respiratory failure with hypercapnia most likely secondary to COPD exacerbation. Bicarb is 42 in the chemistry. Patient is presently on BiPAP. (3) Chronic obstructive pulmonary disease Qualifiers: COPD type: unspecified COPD Qualified Code(s): J44.9 - Chronic obstructive pulmonary disease, unspecified Is this a current diagnosis for this admission?: No Plan: 920-patient has history of COPD. Present on BiPAP. Plan is to continue the present management at this time. Patient is not on antibiotics at this time. [place] Xopenex nebulizations. (4) HTN (hypertension) Qualifiers: Hypertension type: essential hypertension Qualified Code(s): I10 - Essential (primary) hypertension Is this a current diagnosis for this admission?: No Plan: 03/15/2020-blood pressure this morning is 114/50. Stable. Plan is to continue the present management at this time. - Plan Summary Summary: Patient will be admitted to the [facility] where he received routine supportive and symptomatic cares on the congestive heart failure protocol. Routine laboratory, ultrasound and radiographic evaluations will be obtained per protocol. Patient will be treated with morphine sulfate 2 mg IV every hour as needed severe dyspnea. He will be treated with diuretics using Bumex 1 mg IV every 12 hours. Cardiology consultation will be obtained with Dr. Vega. He will be on a cardiac diet. He will receive supplemental oxygen and noninvasive airway pressure support with BiPAP as required to maintain an adequate oxygen saturation and alleviate his hypercapnia. - Time Anticipated Discharge Disposition: Home with Hospice Anticipated Discharge Timeframe: within 72 hours
--- NOTE | 2020-03-15 11:19 | EKG REPORT ---
SEVERITY:- ABNORMAL ECG - SINUS RHYTHM SUPRAVENTRICULAR BIGEMINY RIGHT BUNDLE BRANCH BLOCK : Confirmed by: Epifanio Vega MD 15-Mar-2020 11:18:50
[2020-03-15] MEDS: DOCUSATE SODIUM 100 MG CAPSULE PO SCH (12:09)
[2020-03-15] MEDS: ASPIRIN 81 MG TABLET, ENT COATED PO SCH (12:09)
[2020-03-15 13:32] LABS: CREATINE KINASE MB 0.75 ng/mL (<4.55); TROPONIN I 0.024 ng/mL
--- NOTE | 2020-03-15 13:53 | PDOC CONSULTATION ---
Consultation Consult Date: 03/15/20 Provider Consulted: MOHIT TENORIO Consult reason:: Dyspnea History of Present Illness Admission Date/PCP: 03/14/20 22:21 Patient complains of: Dyspnea History of Present Illness: DAVIDA MCKEON is a 85 year old male With the following active problems 1. COPD 2. Congestive heart failure 3. Coronary artery disease 4. Systemic hypertension 5. Dyslipidemia History is very limited. Per report from attending physician patient had advanced lung disease and COPD and was under hospice care but this has been reversed and patient is on full care. He he does have conversational dyspnea and is on noninvasive respiratory support. is by the bedside. She is unable to give detailed history except that his breathing is much worse. Review of systems is not possible since patient is on BiPAP. Family history cannot be obtained since patient is on BiPAP. Past Medical History Cardiac Medical History: Reports: Coronary Artery Disease, Myocardial Infarction - x2, Hyperlipidema, Hypertension Denies: Atrial Fibrillation Pulmonary Medical History: Reports: Chronic Obstructive Pulmonary Disease (COPD), Respiratory Failure - Chronic EENT Medical History: Denies: Ears - Hearing aids Neurological Medical History: Denies: Hemorrhagic CVA, Ischemic CVA, Seizures Endocrine Medical History: Denies: Diabetes Mellitus Type 1, Diabetes Mellitus Type 2, Hyperthyroidism, Hypothyroidism Renal/ Medical History: Denies: Chronic Kidney Disease, Nephrolithiasis Malignancy Medical History: Reports: None GI Medical History: Denies: Cirrhosis, Hepatitis Musculoskeltal Medical History: Denies: Fibromyalgia, Gout Skin Medical History: Denies: Eczema, Psoriasis Psychiatric Medical History: Reports: Depression, Tobacco Dependency Denies: Alcohol Dependency, Substance Abuse Traumatic Medical History: Reports: None Hematology: Denies: Anemia, Bleeding Tendencies Infectious Medical History: Reports: None Past Surgical History Past Surgical History: Reports: Cardiac Catheterization, Coronary Stent, Orthopedic Surgery - Back surgery for spinal stenosis on 08/23/2015 Social History Lives with: Spouse/Significant other Smoking Status: Former Smoker Electronic Cigarette use?: No Frequency of Alcohol Use: None Hx Recreational Drug Use: No Drugs: None Hx Prescription Drug Abuse: No - Advance Directive Resuscitation Status: Full Code Family History Family History: Other - No reliable family history is available Parental Family History Reviewed: No - Unable to obtain Children Family History Reviewed: NA Sibling(s) Family History Reviewed.: NA Medication/Allergy Home Medications: Atorvastatin Calcium [Lipitor 40 mg Tablet] 40 mg PO QHS 06/12/19 Budesonide/Formoterol Fumarate [Symbicort HFA 80-4.5 mcg Inhaler 6.9 gm] 2 puff IH Q12 06/12/19 Escitalopram Oxalate [Lexapro 10 mg Tablet] 10 mg PO DAILY 06/12/19 Albuterol Sulfate [Albuterol Sulfate Hfa] 2 puff IH Q6HP PRN 02/24/20 Bumetanide [Bumex 1 mg Tablet] 1 mg PO DAILY 02/24/20 Cholecalciferol (Vitamin D3) [Vitamin D3 1000 Unit Tablet] 5,000 unit PO DAILY 02/24/20 Fluticasone Propionate [Flonase Nasal Calvin 50 Mcg/Calvin 16 gm] 1 spray NASL DAILY 02/24/20 Ipratropium/Albuterol Sulfate [Duoneb 3 ml Ampul] 3 ml NEB RTQ4HP PRN 02/24/20 Tiotropium Ware [Spiriva Handihaler 5 Cap/Kit (18 Mcg/Cap)] 1 inh IH DAILY 02/24/20 Prednisone [Deltasone 20 mg Tablet] See Protocol PO DAILY #5 tablet 02/28/20 Ascorbic Acid [Vitamin C with Tatiana Hips] 1,000 mg PO DAILY 03/15/20 Folic Acid/Vit B Complex and C [Super B-Complex Folic-Vit C Tb] 400 mcg PO DAILY 03/15/20 Morphine Sulfate 0.2 mg PO Q1HP PRN 03/15/20 Morphine Sulfate 5 mg PO Q4HP PRN 03/15/20 Nitroglycerin [Nitrostat 0.4 mg (1/150 Gr) Tabs 25/Bottle] 1 tab SL Q5MP PRN 03/15/20 Promethazine HCl [Phenergan 25 mg Tablet] 25 mg PO Q8HP PRN 03/15/20 Tramadol HCl [Ultram 50 mg Tablet] 50 mg PO Q8HP PRN 03/15/20 Allergies/Adverse Reactions: Penicillins Allergy (Verified 03/14/20 19:42) Sulfa (Sulfonamide Antibiotics) Allergy (Verified 03/14/20 19:42) Review of Systems ROS unobtainable: Due to mental status, Other - BiPAP Physical Exam Vital Signs: Temp Pulse Resp BP Pulse Ox 97.6 F 90 22 H 108/57 L 92 03/15/20 07:45 03/15/20 08:23 03/15/20 08:23 03/15/20 07:45 03/15/20 08:23 Intake & Output 03/14/20 03/15/20 03/16/20 06:59 06:59 06:59 Intake Total 100 Output Total 950 Balance -850 Weight 94.3 kg General appearance: PRESENT: mild distress, obese, well-developed, well-jeremy shed Head exam: PRESENT: atraumatic, normocephalic Eye exam: PRESENT: conjunctiva pink Mouth exam: PRESENT: dry mucosa, other - Edentulous Teeth exam: PRESENT: edentulous Respiratory exam: PRESENT: accessory muscle use, decreased breath sounds, prolonged expiratory phas, retraction, symmetrical, tachypnea, wheezes Cardiovascular exam: PRESENT: RRR, +S1, +S2 Pulses: PRESENT: normal radial pulses GI/Abdominal exam: PRESENT: soft Rectal exam: PRESENT: deferred Neurological exam: PRESENT: altered Skin exam: PRESENT: dry Results Laboratory Results: 03/15/20 05:27 03/15/20 05:27 03/14/20 03/14/20 03/14/20 18:56 18:56 18:56 WBC 12.4 H RBC 3.55 L Hgb 12.3 L Hct 37.0 L MCV 104 H MCH 34.6 H MCHC 33.2 RDW 14.5 H Plt Count 238 Seg Neutrophils % Not Reportable Carbonic Acid HCO3/H2CO3 Ratio ABG pH ABG pCO2 ABG pO2 ABG HCO3 ABG O2 Saturation ABG Base Excess VBG pH 7.27 L VBG pCO2 97.0 H* VBG HCO3 43.1 H VBG Base Excess 11.7 FiO2 Sodium 139.4 Potassium 4.1 Chloride 93 L Carbon Dioxide 43 H* Anion Gap 3 L BUN 19 Creatinine 0.71 Est GFR ( Amer) > 60 Glucose 113 H Calcium 8.6 Magnesium Total Bilirubin 1.1 AST 27 Alkaline Phosphatase 124 Total Protein 6.6 Albumin 3.3 L TSH Urine Color Urine Appearance Urine pH Ur Specific Stacy Urine Protein Urine Glucose (UA) Urine Ketones Urine Blood Urine Nitrite Ur Leukocyte Esterase Urine WBC (Auto) Urine RBC (Auto) 03/14/20 03/14/20 03/15/20 22:22 23:27 05:27 WBC RBC Hgb Hct MCV MCH MCHC RDW Plt Count Seg Neutrophils % Carbonic Acid 2.16 H HCO3/H2CO3 Ratio 18:1 ABG pH 7.37 ABG pCO2 71.9 H* ABG pO2 61.4 L ABG HCO3 40.5 H ABG O2 Saturation 89.8 L ABG Base Excess 12.0 VBG pH VBG pCO2 VBG HCO3 VBG Base Excess FiO2 45% Sodium 141.8 Potassium 3.9 Chloride 93 L Carbon Dioxide 42 H* Anion Gap 7 BUN 17 Creatinine 0.60 Est GFR ( Amer) > 60 Glucose 110 Calcium 8.8 Magnesium 2.2 Total Bilirubin AST Alkaline Phosphatase Total Protein Albumin TSH Urine Color STRAW Urine Appearance CLEAR Urine pH 5.0 Ur Specific Stacy 1.012 Urine Protein NEGATIVE Urine Glucose (UA) NEGATIVE Urine Ketones NEGATIVE Urine Blood NEGATIVE Urine Nitrite NEGATIVE Ur Leukocyte Esterase NEGATIVE Urine WBC (Auto) 0 Urine RBC (Auto) 0 03/15/20 03/15/20 05:27 05:27 WBC 13.4 H RBC 3.65 L Hgb 12.6 L Hct 38.0 MCV 104 H MCH 34.6 H MCHC 33.3 RDW 14.3 H Plt Count 238 Seg Neutrophils % Not Reportable Carbonic Acid HCO3/H2CO3 Ratio ABG pH ABG pCO2 ABG pO2 ABG HCO3 ABG O2 Saturation ABG Base Excess VBG pH VBG pCO2 VBG HCO3 VBG Base Excess FiO2 Sodium Potassium Chloride Carbon Dioxide Anion Gap BUN Creatinine Est GFR ( Amer) Glucose Calcium Magnesium Total Bilirubin AST Alkaline Phosphatase Total Protein Albumin TSH 1.72 Urine Color Urine Appearance Urine pH Ur Specific Stacy Urine Protein Urine Glucose (UA) Urine Ketones Urine Blood Urine Nitrite Ur Leukocyte Esterase Urine WBC (Auto) Urine RBC (Auto) 03/14/20 03/14/20 03/14/20 18:56 18:56 18:56 Creatine Kinase 30 L CK-MB (CK-2) 1.25 Troponin I 0.035 NT-Pro-B Natriuret Pep 1580 H 03/14/20 03/14/20 03/15/20 22:45 23:56 05:27 Creatine Kinase 25 L CK-MB (CK-2) Troponin I Cancelled 0.032 NT-Pro-B Natriuret Pep 03/15/20 03/15/20 03/15/20 05:27 10:59 10:59 Creatine Kinase 23 L CK-MB (CK-2) 0.94 0.75 Troponin I 0.031 0.024 NT-Pro-B Natriuret Pep EKG Comments: Chest x-ray 03/14/2020 Pulmonary edema confluent bibasilar airspace disease enlarged cardiac silhouette Twelve-lead EKG 03/14/2020 Sinus rhythm, supraventricular bigeminy, right bundle branch block, ventricular rate of 72 bpm White blood cell count is elevated at 13.4 Troponins 0.032 0.031 0.024 BNP 1580 Telemetry sinus rhythm 98 bpm Impressions: Chest X-Ray 03/14/20 19:07 IMPRESSION: Overall, findings suggest pulmonary edema. Superimposed more confluent bibasilar airspace disease could indicate additional edema, pneumonia, and/or atelectasis. copyright 2011 [employer]- All Rights Reserved Chest/Abdomen CTA 03/14/20 20:18 IMPRESSION: Artifact from the patient's arms. Imaging is degraded by patient motion, with resultant artifact. The best possible images were obtained. No central pulmonary embolus. Progressive interstitial and airspace disease, bilaterally. . Venous Doppler Study 03/14/20 20:18 IMPRESSION: No DVT in the right lower extremity. Assessment & Plan - Diagnosis (1) Acute and chronic respiratory failure with hypercapnia Is this a current diagnosis for this admission?: Yes Plan: The primary diagnosis appears to be acute on chronic respiratory failure and hypercapnia. Patient may merit from noninvasive respiratory support. He probably has advanced lung disease. Supportive care (2) Acute congestive heart failure Qualifiers: Heart failure type: unspecified Qualified Code(s): I50.9 - Heart failure, unspecified Is this a current diagnosis for this admission?: Yes Plan: Clinical picture does not support volume overload His lung exam although course does not suggest pulmonary edema although pulmonary edema was mentioned on chest x-ray. Based on clinical course echocardiogram can shed some light. However presently his respiratory status is quite tenuous and may need additional support. (3) Coronary artery disease Qualifiers: Coronary Disease-Associated Artery/Lesion type: [place] artery [place] vs. transplanted heart: [place] heart Associated angina: without angina Qualified Code(s): I25.10 - Atherosclerotic heart disease of [place] coronary artery without angina pectoris Is this a current diagnosis for this admission?: Yes Plan: There is report of coronary artery disease. Patient's reports previous stents Presentation currently does not suggest ongoing myocardial ischemia (4) COPD exacerbation Is this a current diagnosis for this admission?: Yes Plan: Clinical picture is more supportive of COPD with acute exacerbation rather than pulmonary edema and congestive heart failure Would recommend continued use of bronchodilators and noninvasive respiratory support.
[2020-03-15 17:31] LABS: CREATINE KINASE MB 0.59 ng/mL (<4.55); TROPONIN I 0.021 ng/mL
[2020-03-16] MEDS: LEVALBUTEROL HCL NEB 1.25 MG/3 ML AMPUL NEB SCH ×4 (00:09→23:53)
[2020-03-16] MEDS: IPRATROPIUM BROMIDE 0.02% NEB 0.5 MG/2.5 ML AMPUL NEB SCH ×4 (00:09→23:53)
[2020-03-16] MEDS: MORPHINE SULFATE 10 MG/ML INJ IV PRN ×4 (00:12→21:41)
[2020-03-16] MEDS: HEPARIN SOD (PORCINE) 5,000 UNIT/ML 1 ML VIAL SUBCUT SCH ×3 (05:06→21:03)
[2020-03-16 06:28] LABS: HEMATOCRIT 35.9 % (37.9-51.0); HEMOGLOBIN 11.8 g/dL (13.5-17.0); MEAN CORPUSCULAR HEMOGLOBIN 33.9 pg (27.0-33.4); MEAN CORPUSCULAR HGB CONC 32.9 g/dL (32.0-36.0); MEAN CORPUSCULAR VOLUME 103 fl (80-97); PLATELET COUNT 225 10^3/uL (150-450); RED BLOOD COUNT 3.48 10^6/uL (4.35-5.55); RED CELL DISTRIBUTION WIDTH 14.3 % (11.5-14.0); WHITE BLOOD COUNT 20.9 10^3/uL (4.0-10.5)
[2020-03-16 06:51] LABS: ALBUMIN 3.1 g/dL (3.5-5.0); ALKALINE PHOSPHATASE 207 U/L (38-126); ASPARTATE AMINO TRANSFERASE 73 U/L (17-59); BILIRUBIN,DIRECT 1.1 mg/dL (0.0-0.4); BILIRUBIN,TOTAL 2.3 mg/dL (0.2-1.3); BLOOD UREA NITROGEN 25 mg/dL (7-20); CALCIUM 8.6 mg/dL (8.4-10.2); CHLORIDE 88 mmol/L (98-107); GLUCOSE 129 mg/dL (75-110); TOTAL PROTEIN 6.2 g/dL (6.3-8.2)
[2020-03-16 06:57] LABS: ANION GAP 6 (5-19)
[2020-03-16 06:58] LABS: ABSOLUTE MONOCYTES # (MANUAL) 0.6 10^3/uL (0.1-1.4); BAND NEUTROPHILS % (MANUAL) 1 % (3-5); BASOPHILS % (MANUAL) 1 % (0-2); EOSINOPHILS % (MANUAL) 0 % (0-6); LYMPHOCYTES % (MANUAL) 0 % (13-45); METAMYELOCYTES % (MANUAL) 1 % (0-1); MONOCYTES % (MANUAL) 3 % (3-13); SEGMENTED NEUTROPHILS % (MAN) 94 % (42-78); TOTAL CELLS COUNTED 100
[2020-03-16 06:59] LABS: ANISOCYTOSIS SLIGHT; CARBON DIOXIDE 49 mmol/L (22-30); PLATELET COMMENT ADEQUATE; POLYCHROMASIA SLIGHT
[2020-03-16] MEDS: BUDESONIDE NEB 0.5 MG/2 ML AMPUL NEB SCH ×2 (07:59→20:40)
--- NOTE | 2020-03-16 09:46 | PDOC PROGRESS REPORT ---
Subjective Progress Note for:: 03/16/20 Subjective:: 85 year old male who presented to the emergency room with acute dyspnea. The patient is confused and somnolent and unable to provide historical input into his medical care. His admitted that he had become increasingly dyspneic beginning this morning with a concomitant decrease in his alertness causing her concern. She admits he has a history of COPD and prior similar episodes. She was unable to identify any aggravating or ameliorating factors for his dyspnea. In the emergency room patient was found to have pulmonary edema by chest x-ray and was noted to be hypoxic and hypercapnic requiring BiPAP. He was given IV Bumex and subsequently was admitted to the hospital for further evaluation and treatment. [birth year]/15/[id number]-vqwn-old male admitted with change in mental status and acute on chronic respiratory failure. Found to have a CHF exacerbation, COPD exacerbation. Patient's revoked hospice. Patient is presently on BiPAP. At the time of my examination he is more alert more awake. Discussed the plan of care with patient's daughter Caro. Consultation with cardiology is requested. 03/16/20-patient is still on BiPAP. Difficult to wean him off the BiPAP. PCO2 is 49 this morning. Had a long conversation with the patient's daughter Anna she understood the poor prognosis and severity of the situation. Patient's want everything to be done at this time. We will continue BiPAP support and cardiology is on board 2. Overall prognosis poor. Condition is critical. Reason For Visit: ACUTE CONGESTIVE HEART FAILURE,ACUTE PULMONARY Physical Exam Vital Signs: Temp Pulse Resp BP Pulse Ox 99.0 F 94 43 H 127/83 H 96 03/16/20 08:25 03/16/20 08:00 03/16/20 08:00 03/16/20 07:36 03/16/20 08:00 Intake & Output 03/15/20 03/16/20 03/17/20 06:59 06:59 06:59 Intake Total 100 Output Total 950 1475 Balance -850 -1475 Weight 94.3 kg 95.3 kg General appearance: PRESENT: obese, other - In moderate distress. Head exam: PRESENT: atraumatic Eye exam: PRESENT: PERRLA Ear exam: PRESENT: normal external ear exam Mouth exam: PRESENT: neck supple Teeth exam: PRESENT: poor dentation Neck exam: ABSENT: carotid bruit, JVD, lymphadenopathy, thyromegaly Respiratory exam: PRESENT: decreased breath sounds, tachypnea, other - On BiPAP. Cardiovascular exam: PRESENT: tachycardia GI/Abdominal exam: PRESENT: normal bowel sounds, soft. ABSENT: distended, guarding, mass, organolmegaly, rebound, tenderness Rectal exam: PRESENT: deferred Extremities exam: PRESENT: full ROM. ABSENT: calf tenderness, clubbing, pedal edema Neurological exam: PRESENT: altered Psychiatric exam: PRESENT: appropriate affect, normal mood. ABSENT: homicidal ideation, suicidal ideation Results Laboratory Results: 03/16/20 05:29 03/16/20 05:29 03/16/20 03/16/20 05:29 05:29 WBC 20.9 H RBC 3.48 L Hgb 11.8 L Hct 35.9 L MCV 103 H MCH 33.9 H MCHC 32.9 RDW 14.3 H Plt Count 225 Seg Neutrophils % Not Reportable Sodium 142.7 Potassium 4.0 Chloride 88 L Carbon Dioxide 49 H* Anion Gap 6 BUN 25 H Creatinine 0.72 Est GFR ( Amer) > 60 Glucose 129 H Calcium 8.6 Magnesium 1.9 Total Bilirubin 2.3 H AST 73 H Alkaline Phosphatase 207 H Total Protein 6.2 L Albumin 3.1 L 03/14/20 03/14/20 03/14/20 18:56 18:56 18:56 Creatine Kinase 30 L CK-MB (CK-2) 1.25 Troponin I 0.035 NT-Pro-B Natriuret Pep 1580 H 03/14/20 03/14/20 03/15/20 22:45 23:56 05:27 Creatine Kinase 25 L CK-MB (CK-2) Troponin I Cancelled 0.032 NT-Pro-B Natriuret Pep 03/15/20 03/15/20 03/15/20 05:27 10:59 10:59 Creatine Kinase 23 L CK-MB (CK-2) 0.94 0.75 Troponin I 0.031 0.024 NT-Pro-B Natriuret Pep 03/15/20 03/15/20 16:42 16:42 Creatine Kinase 25 L CK-MB (CK-2) 0.59 Troponin I 0.021 NT-Pro-B Natriuret Pep Impressions: Chest X-Ray 03/14/20 19:07 IMPRESSION: Overall, findings suggest pulmonary edema. Superimposed more confluent bibasilar airspace disease could indicate additional edema, pneumonia, and/or atelectasis. copyright 2011 [employer]- All Rights Reserved Chest/Abdomen CTA 03/14/20 20:18 IMPRESSION: Artifact from the patient's arms. Imaging is degraded by patient motion, with resultant artifact. The best possible images were obtained. No central pulmonary embolus. Progressive interstitial and airspace disease, bilaterally. . Venous Doppler Study 03/14/20 20:18 IMPRESSION: No DVT in the right lower extremity. Assessment and Plan - Diagnosis (1) Acute congestive heart failure Qualifiers: Heart failure type: unspecified Qualified Code(s): I50.9 - Heart failure, unspecified Is this a current diagnosis for this admission?: Yes Plan: [id number]-jezp-old male with history of CHF admitted with a CHF exacerbation. Echocardiogram is requested. Consultation with Dr. Martin is requested. Plan is to continue Bumex 1 mg IV every 12 hours at this time. 03/[id number]-xerc-old male admitted with questionable CHF exacerbation. Echocardiogram is pending. Cardiology consult was done. Dr. cristobal thinks most of the symptoms are due to COPD rather than CHF. Plan is to discontinue Bumex today echocardiogram is requested. (2) Acute and chronic respiratory failure with hypercapnia Is this a current diagnosis for this admission?: Yes Plan: 03/15/2020-patient admitted with acute on chronic respiratory failure with hypercapnia most likely secondary to COPD exacerbation. Bicarb is 42 in the chemistry. Patient is presently on BiPAP. 03/16/2020-patient admitted with acute on chronic respiratory failure with hypoxia and hypercapnia. PCO2 is 49 in the chemistry. ABG is pending. Plan is to continue BiPAP support at this time. (3) Chronic obstructive pulmonary disease Qualifiers: COPD type: unspecified COPD Qualified Code(s): J44.9 - Chronic obstructive pulmonary disease, unspecified Is this a current diagnosis for this admission?: No Plan: 03/15/20-patient has history of COPD. Present on BiPAP. Plan is to continue the present management at this time. Patient is not on antibiotics at this time. [place] Xopenex nebulizations. 1020-patient has history of COPD. Plan is to continue BiPAP support. Continue to provide nebulizer treatments. Prognosis is poor. (4) HTN (hypertension) Qualifiers: Hypertension type: essential hypertension Qualified Code(s): I10 - Essential (primary) hypertension Is this a current diagnosis for this admission?: No Plan: 03/15/2020-blood pressure this morning is 114/50. Stable. Plan is to continue the present management at this time. 03/16/2020-blood pressure today is 115/60. Stable. - Plan Summary Summary: Patient will be admitted to the [facility] where he received routine supportive and symptomatic cares on the congestive heart failure protocol. Routine laboratory, ultrasound and radiographic evaluations will be obtained per protocol. Patient will be treated with morphine sulfate 2 mg IV every hour as needed severe dyspnea. He will be treated with diuretics using Bumex 1 mg IV every 12 hours. Cardiology consultation will be obtained with Dr. Vega. He will be on a cardiac diet. He will receive supplemental oxygen and noninvasive airway pressure support with BiPAP as required to maintain an adequate oxygen saturation and alleviate his hypercapnia. - Time Anticipated Discharge Disposition: Home with Hospice Anticipated Discharge Timeframe: within 72 hours
[2020-03-16 10:54] LABS: ARTERIAL BLOOD BASE EXCESS 19.7 mmol/L; ARTERIAL BLOOD H2CO3 2.29 mmol/L (1.05-1.35); ARTERIAL BLOOD O2 SATURATION 96.7 % (94-98); ARTERIAL BLOOD PH 7.42 (7.35-7.45); ARTERIAL BLOOD TOTAL CO2 50.4 mmol/L (23-27)
[2020-03-16 10:55] LABS: ARTERIAL BLOOD FIO2 60%
[2020-03-16 10:58] LABS: ARTERIAL BLOOD PCO2 76.1 mmHg (35-45)
[2020-03-16] MEDS: DOCUSATE SODIUM 100 MG CAPSULE PO SCH (12:29)
[2020-03-16] MEDS: ASPIRIN 81 MG TABLET, ENT COATED PO SCH (12:31)
--- NOTE | 2020-03-16 14:14 | PDOC PROGRESS REPORT ---
Subjective Progress Note for:: 03/16/20 Subjective:: Patient seen and examined. No significant improvement noted especially in respiratory status. He continues to be on noninvasive positive pressure ventilation. Urine output has diminished. Reason For Visit: ACUTE CONGESTIVE HEART FAILURE,ACUTE PULMONARY Physical Exam Vital Signs: Temp Pulse Resp BP Pulse Ox 98.7 F 85 17 127/67 H 97 03/16/20 11:51 03/16/20 11:51 03/16/20 12:00 03/16/20 11:51 03/16/20 11:51 Intake & Output 03/15/20 03/16/20 03/17/20 06:59 06:59 06:59 Intake Total 100 0 Output Total 950 1475 Balance -850 -1475 0 Weight 94.3 kg 95.3 kg 95.3 kg General appearance: PRESENT: mild distress, obese, well-developed, well- nourished Head exam: PRESENT: atraumatic, normocephalic Eye exam: PRESENT: EOMI Mouth exam: PRESENT: dry mucosa Respiratory exam: PRESENT: accessory muscle use, decreased breath sounds, prolonged expiratory phas, tachypnea GI/Abdominal exam: PRESENT: soft Rectal exam: PRESENT: deferred Neurological exam: PRESENT: altered Skin exam: PRESENT: dry, intact Results Laboratory Results: 03/16/20 05:29 03/16/20 05:29 03/16/20 03/16/20 03/16/20 05:29 05:29 10:10 WBC 20.9 H RBC 3.48 L Hgb 11.8 L Hct 35.9 L MCV 103 H MCH 33.9 H MCHC 32.9 RDW 14.3 H Plt Count 225 Seg Neutrophils % Not Reportable Carbonic Acid 2.29 H HCO3/H2CO3 Ratio 20:1 ABG pH 7.42 ABG pCO2 76.1 H* ABG pO2 91.0 ABG HCO3 48.0 H ABG O2 Saturation 96.7 ABG Base Excess 19.7 FiO2 60% Sodium 142.7 Potassium 4.0 Chloride 88 L Carbon Dioxide 49 H* Anion Gap 6 BUN 25 H Creatinine 0.72 Est GFR ( Amer) > 60 Glucose 129 H Calcium 8.6 Magnesium 1.9 Total Bilirubin 2.3 H AST 73 H Alkaline Phosphatase 207 H Total Protein 6.2 L Albumin 3.1 L 03/14/20 03/14/20 03/14/20 18:56 18:56 18:56 Creatine Kinase 30 L CK-MB (CK-2) 1.25 Troponin I 0.035 NT-Pro-B Natriuret Pep 1580 H 03/14/20 03/14/20 03/15/20 22:45 23:56 05:27 Creatine Kinase 25 L CK-MB (CK-2) Troponin I Cancelled 0.032 NT-Pro-B Natriuret Pep 03/15/20 03/15/20 03/15/20 05:27 10:59 10:59 Creatine Kinase 23 L CK-MB (CK-2) 0.94 0.75 Troponin I 0.031 0.024 NT-Pro-B Natriuret Pep 03/15/20 03/15/20 16:42 16:42 Creatine Kinase 25 L CK-MB (CK-2) 0.59 Troponin I 0.021 NT-Pro-B Natriuret Pep EKG Comments: WBC count is increased to 20.9 from 30.4 Creatinine stays 0.72 Impressions: Chest X-Ray 03/14/20 19:07 IMPRESSION: Overall, findings suggest pulmonary edema. Superimposed more confluent bibasilar airspace disease could indicate additional edema, pneumonia, and/or atelectasis. copyright 2011 [employer]- All Rights Reserved Chest/Abdomen CTA 03/14/20 20:18 IMPRESSION: Artifact from the patient's arms. Imaging is degraded by patient motion, with resultant artifact. The best possible images were obtained. No central pulmonary embolus. Progressive interstitial and airspace disease, bilaterally. . Venous Doppler Study 03/14/20 20:18 IMPRESSION: No DVT in the right lower extremity. Assessment & Plan - Diagnosis (1) Acute and chronic respiratory failure with hypercapnia Is this a current diagnosis for this admission?: Yes Plan: Hypoxic respiratory failure probably on account of COPD Excessive work of breathing noted Supportive care and noninvasive ventilation to be continued. Difficulty establish CODE STATUS and discussion with the . (2) Acute congestive heart failure Qualifiers: Heart failure type: unspecified Qualified Code(s): I50.9 - Heart failure, unspecified Is this a current diagnosis for this admission?: Yes Plan: Current clinical picture does not support decompensated congestive heart failure. He has diminished urine output which may suggest that he is intravascularly volume depleted. Creatinine appears to be stable. (3) Coronary artery disease Qualifiers: Coronary Disease-Associated Artery/Lesion type: [place] artery [place] vs. transplanted heart: [place] heart Associated angina: without angina Qualified Code(s): I25.10 - Atherosclerotic heart disease of [place] coronary artery without angina pectoris Is this a current diagnosis for this admission?: Yes Plan: No ischemic symptoms. (4) COPD exacerbation Is this a current diagnosis for this admission?: Yes Plan: CAP COPD exacerbation Continue bronchodilator therapy supportive care
--- NOTE | 2020-03-16 14:55 | XCELERA REPORT ---
[address] [address] Transthoracic Echocardiogram Report Name: DAVIDA MCKEON Age: 85 yrs Gender: Male : 1935 Patient Status: Inpatient Patient Location: [facility]^A Study Date: 03/16/2020 08:23 AM History: CHF COPD Height: 67 in Weight: 210 lb BSA: 2.1 m2 Procedure: A complete two-dimensional transthoracic echocardiogram was performed (2D, M-mode, spectral and color flow Doppler). The study was technically difficult with many images being suboptimal in quality. Reason For Study: chf Previous Evaluation: No previous studies were available. History: CHF. COPD. Ordering Physician: JOSELYN SOUZA Performed By: Regina Cain Interpretation Summary The study was technically difficult with many images being suboptimal in quality. Left ventricular systolic function is normal. The Ejection Fraction estimate is 55-60% The right ventricular systolic function is normal. There is a trace amount of mitral regurgitation There is no aortic valve stenosis There is a trace amount of aortic regurgitation There is a trace amount of tricuspid regurgitation There is no pericardial effusion. MMode/2D Measurements & Calculations RVDd: 2.8 cm LVIDd: 3.8 cm FS: 29.5 % Ao root diam: 3.6 cm IVSd: 1.2 cm LVIDs: 2.7 cm EDV(Teich): 62.3 ml Ao root area: 10.0 cm2 LVPWd: 0.90 cm ESV(Teich): 26.7 ml EF(Teich): 57.2 % Doppler Measurements & Calculations MV E max richard: MV dec slope: Ao V2 max: AI max richard: 88.4 cm/sec 610.8 cm/sec2 141.1 cm/sec 86.3 cm/sec MV A max richard: MV dec time: Ao max PG: AI max P.0 mmHg 123.0 cm/sec 0.14 sec 8.0 mmHg AI dec slope: MV E/A: 0.72 37.9 cm/sec2 AI P1/2t: 666.7 msec LV V1 max PG: PA V2 max: TR max richard: 6.2 mmHg 99.5 cm/sec 217.1 cm/sec LV V1 max: PA max P.0 mmHg TR max P.1 cm/sec 18.9 mmHg Left Ventricle The left ventricle is grossly normal size. There is mild concentric left ventricular hypertrophy. Left ventricular systolic function is normal. The Ejection Fraction estimate is 55-60%. Doppler measurements suggest impaired left ventricular relaxation, which is associated with grade I/IV or mild diastolic dysfunction. Regional wall motion abnormalities cannot be excluded due to limited visualization. Right Ventricle The right ventricle is not well visualized secondary to technical limitations. The right ventricular systolic function is normal. Atria The right atrium is normal. The left atrium is mildly dilated. Mitral Valve Calcified mitral apparatus. There is no mitral valve stenosis. There is a trace amount of mitral regurgitation. Aortic Valve The aortic valve is moderately calcified. The aortic valve is sclerotic and shows some degree of functional abnormality. There is no aortic valve stenosis. There is a trace amount of aortic regurgitation. Tricuspid Valve The tricuspid valve is not well visualized, but is grossly normal. There is no tricuspid stenosis. There is a trace amount of tricuspid regurgitation. Tricuspid regurgitation jet envelope not well defined to measure RV systolic pressure accurately. Pulmonic Valve The pulmonic valve is not well visualized. There is a trace amount of pulmonic regurgitation. Great Vessels The aortic root is normal size. There is aortic root sclerosis/calcification. The inferior vena cava was not well visualized. Effusions There is no pericardial effusion. : JOSELYN SOUZA Anil
--- NOTE | 2020-03-16 20:27 | CDI QUERY ---
CDI Query CDI Review: We are seeking further clarification of documentation to reflect the severity of illness of your patient. Per Progress Notes: 03/15/[id number]-rjhj-old male with history of CHF admitted with a CHF exacerbation. Echocardiogram is requested. Consultation with Dr. Martin is requested. Plan is to continue Bumex 1 mg IV every 12 hours at this time. Per Cardiology Consult Note: Acute congestive heart failure Qualifiers: Heart failure type: unspecified Qualified Code(s): I50.9 - Heart failure, unspecified Is this a current diagnosis for this admission?: Yes Plan: Current clinical picture does not support decompensated congestive heart failure. He has diminished urine output which may suggest that he is intravascularly volume depleted. Creatinine appears to be stable. Echo Report: EF 55-60% Left ventricular systolic function is normal Right ventricular systolic function is normal No pericardial effusion Based on your medical judgement, can you further clarify in the Progress Notes: Acute CHF ruled out Acute CHF confirmed (please specify type: Systolic; Diastolic; Combined Systolic / Diastolic) Unable to determine Other Thank you for your consideration. JOSAFAT Weber RN Clinical Production Team Leader Physician Advisor [email or web address]
[2020-03-16] MEDS: LEVALBUTEROL HCL NEB 0.63 MG/3 ML AMPUL NEB PRN (20:37)
[2020-03-16] MEDS: NORMAL SALINE 1000 ML 1,000 ML IV PRN (21:04)
[2020-03-17] MEDS: MORPHINE SULFATE 10 MG/ML INJ IV PRN ×2 (03:44→09:34)
[2020-03-17] MEDS: HEPARIN SOD (PORCINE) 5,000 UNIT/ML 1 ML VIAL SUBCUT SCH ×3 (05:10→21:20)
[2020-03-17] MEDS: BUDESONIDE NEB 0.5 MG/2 ML AMPUL NEB SCH ×2 (08:10→20:49)
[2020-03-17] MEDS: LEVALBUTEROL HCL NEB 1.25 MG/3 ML AMPUL NEB SCH ×2 (08:10→15:44)
[2020-03-17] MEDS: IPRATROPIUM BROMIDE 0.02% NEB 0.5 MG/2.5 ML AMPUL NEB SCH ×2 (08:10→15:44)
[2020-03-17] MEDS: DOCUSATE SODIUM 100 MG CAPSULE PO SCH (09:19)
[2020-03-17] MEDS: ASPIRIN 81 MG TABLET, ENT COATED PO SCH (09:19)
[2020-03-17 09:55] LABS: HEMATOCRIT 34.4 % (37.9-51.0); HEMOGLOBIN 11.3 g/dL (13.5-17.0); MEAN CORPUSCULAR HEMOGLOBIN 34.2 pg (27.0-33.4); MEAN CORPUSCULAR HGB CONC 32.8 g/dL (32.0-36.0); MEAN CORPUSCULAR VOLUME 104 fl (80-97); PLATELET COUNT 199 10^3/uL (150-450); RED BLOOD COUNT 3.31 10^6/uL (4.35-5.55); RED CELL DISTRIBUTION WIDTH 14.6 % (11.5-14.0); WHITE BLOOD COUNT 12.3 10^3/uL (4.0-10.5)
[2020-03-17 10:16] LABS: ALBUMIN 2.7 g/dL (3.5-5.0); ALKALINE PHOSPHATASE 218 U/L (38-126); ASPARTATE AMINO TRANSFERASE 45 U/L (17-59); BILIRUBIN,DIRECT 0.5 mg/dL (0.0-0.4); BILIRUBIN,TOTAL 1.7 mg/dL (0.2-1.3); BLOOD UREA NITROGEN 25 mg/dL (7-20); CALCIUM 8.6 mg/dL (8.4-10.2); CHLORIDE 94 mmol/L (98-107); GLUCOSE 120 mg/dL (75-110); POTASSIUM 3.8 mmol/L (3.6-5.0); TOTAL PROTEIN 5.6 g/dL (6.3-8.2)
[2020-03-17 10:23] LABS: ANION GAP 6 (5-19)
[2020-03-17 10:25] LABS: CARBON DIOXIDE 44 mmol/L (22-30)
[2020-03-17 10:29] LABS: ABSOLUTE LYMPHOCYTES# (MANUAL) 0.1 10^3/uL (0.5-4.7); ABSOLUTE MONOCYTES # (MANUAL) 0.5 10^3/uL (0.1-1.4); BASOPHILS % (MANUAL) 1 % (0-2); EOSINOPHILS % (MANUAL) 0 % (0-6); LYMPHOCYTES % (MANUAL) 1 % (13-45); MONOCYTES % (MANUAL) 4 % (3-13); SEGMENTED NEUTROPHILS % (MAN) 94 % (42-78); TOTAL CELLS COUNTED 100
[2020-03-17 10:32] LABS: PLATELET COMMENT ADEQUATE; PLATELET LARGE PRESENT
[2020-03-17 10:35] LABS: POLYCHROMASIA SLIGHT
[2020-03-17 10:36] LABS: OVALOCYTES SLIGHT
--- NOTE | 2020-03-17 10:37 | PDOC PROGRESS REPORT ---
Subjective Progress Note for:: 03/17/20 Subjective:: 85 year old male who presented to the emergency room with acute dyspnea. The patient is confused and somnolent and unable to provide historical input into his medical care. His admitted that he had become increasingly dyspneic beginning this morning with a concomitant decrease in his alertness causing her concern. She admits he has a history of COPD and prior similar episodes. She was unable to identify any aggravating or ameliorating factors for his dyspnea. In the emergency room patient was found to have pulmonary edema by chest x-ray and was noted to be hypoxic and hypercapnic requiring BiPAP. He was given IV Bumex and subsequently was admitted to the hospital for further evaluation and treatment. 03/15/2089-13-dpyh-old male admitted with change in mental status and acute on chronic respiratory failure. Found to have a CHF exacerbation, COPD exacerbation. Patient's revoked hospice. Patient is presently on BiPAP. At the time of my examination he is more alert more awake. Discussed the plan of care with patient's daughter Caro. Consultation with cardiology is requested. 03/16/20-patient is still on BiPAP. Difficult to wean him off the BiPAP. PCO2 is 49 this morning. Had a long conversation with the patient's daughter Anna she understood the poor prognosis and severity of the situation. Patient's want everything to be done at this time. We will continue BiPAP support and cardiology is on board 2. Overall prognosis poor. Condition is critical. 03/17/20-patient CODE STATUS is DNI. Still on BiPAP. De-satting without BiPAP. Overall prognosis poor condition is critical. Family is aware. Reason For Visit: ACUTE CONGESTIVE HEART FAILURE,ACUTE PULMONARY Physical Exam Vital Signs: Temp Pulse Resp BP Pulse Ox 99.2 F 87 39 H 127/46 H 95 03/17/20 07:48 03/17/20 08:10 03/17/20 08:10 03/17/20 07:48 03/17/20 08:10 Intake & Output 03/16/20 03/17/20 03/18/20 06:59 06:59 06:59 Intake Total 0 Output Total 1475 550 Balance -1475 -550 Weight 95.3 kg 93.1 kg General appearance: PRESENT: well-developed, other - In moderate distress. Head exam: PRESENT: atraumatic Eye exam: PRESENT: PERRLA Ear exam: PRESENT: normal external ear exam Teeth exam: PRESENT: poor dentation Neck exam: ABSENT: carotid bruit, JVD, lymphadenopathy, thyromegaly Respiratory exam: PRESENT: accessory muscle use - Decreased breath sounds bilaterally. Using accessory muscles., decreased breath sounds, tachypnea, other - Patient is on BiPAP tachypneic. Cardiovascular exam: PRESENT: RRR, systolic murmur. ABSENT: diastolic murmur, rubs GI/Abdominal exam: PRESENT: normal bowel sounds, soft. ABSENT: distended, guarding, mass, organolmegaly, rebound, tenderness Rectal exam: PRESENT: deferred Gentrourinary exam: PRESENT: indwelling catheter Extremities exam: PRESENT: full ROM. ABSENT: calf tenderness, clubbing, pedal edema Neurological exam: PRESENT: alert, CN II-XII grossly intact Results Laboratory Results: 03/17/20 09:31 03/16/20 03/17/20 03/17/20 10:10 09:31 09:31 Seg Neutrophils % Not Reportable Carbonic Acid 2.29 H HCO3/H2CO3 Ratio 20:1 ABG pH 7.42 ABG pCO2 76.1 H* ABG pO2 91.0 ABG HCO3 48.0 H ABG O2 Saturation 96.7 ABG Base Excess 19.7 FiO2 60% Sodium 143.8 Potassium 3.8 Chloride 94 L Carbon Dioxide 44 H* Anion Gap 6 BUN 25 H Creatinine 0.61 Est GFR ( Amer) > 60 Glucose 120 H Calcium 8.6 Magnesium 2.2 Total Bilirubin 1.7 H AST 45 Alkaline Phosphatase 218 H Total Protein 5.6 L Albumin 2.7 L 03/14/20 03/14/20 03/14/20 18:56 18:56 18:56 Creatine Kinase 30 L CK-MB (CK-2) 1.25 Troponin I 0.035 NT-Pro-B Natriuret Pep 1580 H 03/14/20 03/14/20 03/15/20 22:45 23:56 05:27 Creatine Kinase 25 L CK-MB (CK-2) Troponin I Cancelled 0.032 NT-Pro-B Natriuret Pep 03/15/20 03/15/20 03/15/20 05:27 10:59 10:59 Creatine Kinase 23 L CK-MB (CK-2) 0.94 0.75 Troponin I 0.031 0.024 NT-Pro-B Natriuret Pep 03/15/20 03/15/20 16:42 16:42 Creatine Kinase 25 L CK-MB (CK-2) 0.59 Troponin I 0.021 NT-Pro-B Natriuret Pep Impressions: Chest X-Ray 03/14/20 19:07 IMPRESSION: Overall, findings suggest pulmonary edema. Superimposed more confluent bibasilar airspace disease could indicate additional edema, pneumonia, and/or atelectasis. copyright 2011 [employer]- All Rights Reserved Chest/Abdomen CTA 03/14/20 20:18 IMPRESSION: Artifact from the patient's arms. Imaging is degraded by patient motion, with resultant artifact. The best possible images were obtained. No central pulmonary embolus. Progressive interstitial and airspace disease, bilaterally. . Venous Doppler Study 03/14/20 20:18 IMPRESSION: No DVT in the right lower extremity. Assessment and Plan - Diagnosis (1) Acute congestive heart failure Qualifiers: Heart failure type: unspecified Qualified Code(s): I50.9 - Heart failure, unspecified Is this a current diagnosis for this admission?: Yes Plan: 03/15/[id number]-eujc-old male with history of CHF admitted with a CHF exacerbation. Echocardiogram is requested. Consultation with Dr. Martin is requested. Plan is to continue Bumex 1 mg IV every 12 hours at this time. 03/16/20201421-48-jxaj-old male admitted with questionable CHF exacerbation. Echocardiogram is pending. Cardiology consult was done. Dr. cristobal thinks most of the symptoms are due to COPD rather than CHF. Plan is to discontinue Bumex today echocardiogram is requested. 03/17/2020-echocardiogram indicates EF of 55 to 60% normal with grade 1/grade 4 diastolic dysfunction. As per cardiology notes patient is not in heart failure at this time. (2) Acute and chronic respiratory failure with hypercapnia Is this a current diagnosis for this admission?: Yes Plan: 03/15/2020-patient admitted with acute on chronic respiratory failure with h ypercapnia most likely secondary to COPD exacerbation. Bicarb is 42 in the chemistry. Patient is presently on BiPAP. 03/16/2020-patient admitted with acute on chronic respiratory failure with hypoxi a and hypercapnia. PCO2 is 49 in the chemistry. ABG is pending. Plan is to continue BiPAP support at this time. 03/17/2020-patient admitted with acute on chronic respiratory failure with hypoxia and BiPAP. Patient is de-satting without BiPAP. CODE STATUS is DNR A. Overall prognosis poor condition is critical. Patient has end-stage lung disease. (3) Chronic obstructive pulmonary disease Qualifiers: COPD type: unspecified COPD Qualified Code(s): J44.9 - Chronic obstructive pulmonary disease, unspecified Is this a current diagnosis for this admission?: No Plan: 03/15/20-patient has history of COPD. Present on BiPAP. Plan is to continue the present management at this time. Patient is not on antibiotics at this time. Sieving Xopenex nebulizations. 1020-patient has history of COPD. Plan is to continue BiPAP support. Continue to provide nebulizer treatments. Prognosis is poor. (4) HTN (hypertension) Qualifiers: Hypertension type: essential hypertension Qualified Code(s): I10 - Ess ential (primary) hypertension Is this a current diagnosis for this admission?: No Plan: 03/15/2020-blood pressure this morning is 114/50. Stable. Plan is to continue the present management at this time. 03/16/2020-blood pressure today is 115/60. Stable. 03/17/2020-blood pressure this morning is 110/54. Stable. - Plan Summary Summary: Patient will be admitted to the [facility] where he received routine supportive and symptomatic cares on the congestive heart failure protocol. Routine laboratory, ultrasound and radiographic evaluations will be obtained per protocol. Patient will be treated with morphine sulfate 2 mg IV every hour as needed severe dyspnea. He will be treated with diuretics using Bumex 1 mg IV every 12 hours. Cardiology consultation will be obtained with Dr. Vega. He will be on a cardiac diet. He will receive supplemental oxygen and noninvasive airway pressure support with BiPAP as required to maintain an adequate oxygen saturation and alleviate his hypercapnia. - Time Anticipated Discharge Disposition: Home with Hospice Anticipated Discharge Timeframe: within 48 hours
[2020-03-17] MEDS: NORMAL SALINE 1000 ML 1,000 ML IV PRN (15:30)
[2020-03-17] MEDS: LEVALBUTEROL HCL NEB 0.63 MG/3 ML AMPUL NEB PRN (20:49)
[2020-03-18] MEDS: LEVALBUTEROL HCL NEB 1.25 MG/3 ML AMPUL NEB SCH ×3 (00:20→20:46)
[2020-03-18] MEDS: IPRATROPIUM BROMIDE 0.02% NEB 0.5 MG/2.5 ML AMPUL NEB SCH ×3 (00:20→20:46)
[2020-03-18] MEDS: HEPARIN SOD (PORCINE) 5,000 UNIT/ML 1 ML VIAL SUBCUT SCH ×3 (05:07→21:59)
[2020-03-18] MEDS: MORPHINE SULFATE 10 MG/ML INJ IV PRN ×6 (06:20→23:42)
[2020-03-18] MEDS: BUDESONIDE NEB 0.5 MG/2 ML AMPUL NEB SCH (07:45)
--- NOTE | 2020-03-18 11:16 | PDOC PROGRESS REPORT ---
Subjective Progress Note for:: 03/18/20 Subjective:: Patient seen and examined. No significant improvement noted especially in respiratory status. He continues to be on noninvasive positive pressure ventilation. No family is present today Reason For Visit: ACUTE CONGESTIVE HEART FAILURE,ACUTE PULMONARY Physical Exam Vital Signs: Temp Pulse Resp BP Pulse Ox 97.9 F 44 L 18 152/90 H 97 03/18/20 08:00 03/18/20 08:00 03/18/20 08:00 03/18/20 08:00 03/18/20 08:00 Intake & Output 03/17/20 03/18/20 03/19/20 06:59 06:59 06:59 Intake Total 0 972 Output Total 550 800 Balance -550 172 Weight 93.1 kg 94.7 kg 94.7 kg General appearance: PRESENT: no acute distress, obese, well-developed, well- nourished Head exam: PRESENT: atraumatic, normocephalic Respiratory exam: PRESENT: accessory muscle use, retraction, symmetrical Cardiovascular exam: PRESENT: +S1, +S2 Rectal exam: PRESENT: deferred Neurological exam: PRESENT: altered Skin exam: PRESENT: dry, intact Results Laboratory Results: 03/17/20 09:31 03/17/20 09:31 03/14/20 03/14/20 03/14/20 18:56 18:56 18:56 Creatine Kinase 30 L CK-MB (CK-2) 1.25 Troponin I 0.035 NT-Pro-B Natriuret Pep 1580 H 03/14/20 03/14/20 03/15/20 22:45 23:56 05:27 Creatine Kinase 25 L CK-MB (CK-2) Troponin I Cancelled 0.032 NT-Pro-B Natriuret Pep 03/15/20 03/15/20 03/15/20 05:27 10:59 10:59 Creatine Kinase 23 L CK-MB (CK-2) 0.94 0.75 Troponin I 0.031 0.024 NT-Pro-B Natriuret Pep 03/15/20 03/15/20 16:42 16:42 Creatine Kinase 25 L CK-MB (CK-2) 0.59 Troponin I 0.021 NT-Pro-B Natriuret Pep Impressions: Chest X-Ray 03/14/20 19:07 IMPRESSION: Overall, findings suggest pulmonary edema. Superimposed more confluent bibasilar airspace disease could indicate additional edema, pneumonia, and/or atelectasis. copyright 2011 [employer]- All Rights Reserved Chest/Abdomen CTA 03/14/20 20:18 IMPRESSION: Artifact from the patient's arms. Imaging is degraded by patient motion, with resultant artifact. The best possible images were obtained. No central pulmonary embolus. Progressive interstitial and airspace disease, bilaterally. . Venous Doppler Study 03/14/20 20:18 IMPRESSION: No DVT in the right lower extremity. Assessment & Plan - Diagnosis (1) Acute and chronic respiratory failure with hypercapnia Is this a current diagnosis for this admission?: Yes Plan: Hypoxic respiratory failure probably on account of COPD Excessive work of breathing noted Supportive care and noninvasive ventilation to be continued. Difficulty establish CODE STATUS and discussion with the I suspect he is going to get tired. CODE STATUS has been addressed to some measure and is a DO NOT INTUBATE now. This is appropriate (2) Acute congestive heart failure Qualifiers: Heart failure type: unspecified Qualified Code(s): I50.9 - Heart failure, unspecified Is this a current diagnosis for this admission?: Yes Plan: Current clinical picture does not support decompensated congestive heart failure. He has diminished urine output which may suggest that he is intravascularly volume depleted. (3) Coronary artery disease Qualifiers: Coronary Disease-Associated Artery/Lesion type: eagle artery [place] vs. transplanted heart: eagle heart Associated angina: without angina Qualified Code(s): I25.10 - Atherosclerotic heart disease of eagle coronary artery without angina pectoris Is this a current diagnosis for this admission?: Yes Plan: No ischemic symptoms. (4) COPD exacerbation Is this a current diagnosis for this admission?: Yes Plan: CAP COPD exacerbation Continue bronchodilator therapy supportive care
[2020-03-18] MEDS: ASPIRIN 81 MG TABLET, ENT COATED PO SCH (12:39)
[2020-03-18] MEDS: DOCUSATE SODIUM 100 MG CAPSULE PO SCH (12:39)
[2020-03-18 13:08] LABS: HEMATOCRIT 34.8 % (37.9-51.0); HEMOGLOBIN 11.8 g/dL (13.5-17.0); MEAN CORPUSCULAR HEMOGLOBIN 35.3 pg (27.0-33.4); MEAN CORPUSCULAR VOLUME 104 fl (80-97); PLATELET COUNT 203 10^3/uL (150-450); RED BLOOD COUNT 3.35 10^6/uL (4.35-5.55); RED CELL DISTRIBUTION WIDTH 14.5 % (11.5-14.0); WHITE BLOOD COUNT 10.7 10^3/uL (4.0-10.5)
[2020-03-18 13:35] LABS: BLOOD UREA NITROGEN 25 mg/dL (7-20); CALCIUM 8.8 mg/dL (8.4-10.2); CHLORIDE 100 mmol/L (98-107); GLUCOSE 94 mg/dL (75-110); POTASSIUM 4.1 mmol/L (3.6-5.0)
[2020-03-18 13:45] LABS: ANION GAP 5 (5-19)
[2020-03-18 13:46] LABS: CARBON DIOXIDE 41 mmol/L (22-30)
[2020-03-18 14:39] LABS: ARTERIAL BLOOD BASE EXCESS 13.6 mmol/L; ARTERIAL BLOOD FIO2 40%; ARTERIAL BLOOD H2CO3 1.83 mmol/L (1.05-1.35); ARTERIAL BLOOD HCO3 40.2 mmol/L (20-24); ARTERIAL BLOOD PCO2 60.9 mmHg (35-45); ARTERIAL BLOOD PH 7.44 (7.35-7.45); ARTERIAL BLOOD PO2 65.5 mmHg (80-100); ARTERIAL BLOOD TOTAL CO2 42.1 mmol/L (23-27)
[2020-03-18] MEDS ORDERED: METHYLPREDNISOLONE INJ 125 MG/2 ML SDV IV ONE (15:00)
--- NOTE | 2020-03-18 15:15 | PDOC PROGRESS REPORT ---
Subjective Progress Note for:: 03/18/20 Subjective:: Patient is 85-year-old male with a past medical history of [place], hypertension, hyperlipidemia, CAD, COPD, chronic respiratory failure, recently having rescinded hospice services in order to seek care in the emergency department for respiratory distress, depression, and tobacco dependency who was admitted 03/14/2020 with acute pulmonary edema with CHF resulting in an acute on chronic respiratory failure with hypoxia and hypercapnia. Patient was seen on morning rounds with and daughter present. He was found resting in bed on supplemental oxygen via BiPAP. He is noted to be arousable but quite lethargic, with to work tachypnea, accessory muscle use, and a radha iable respiratory rate of 30-60. Patient denies pain but does not answer any further questions. ROS is thus limited. Long discussion had with the patient's spouse and daughter regarding his grave prognosis and worsening respiratory status. Discussed goals of care and recommendation to transition to comfort care only. At this time, patient spouse states that she wants us to continue all interventions are as we currently are; does affirm that she would not want her to be intubated which is respiratory status worsened. Despite 's confusion and forgetfulness (along with multiple nurse reports of dementia/sundowning behavior) the daughter continues to defer to her mother for all decision-making. No concerns per nursing. Reason For Visit: ACUTE CONGESTIVE HEART FAILURE,ACUTE PULMONARY Physical Exam Vital Signs: Temp Pulse Resp BP Pulse Ox 98.1 F 50 L 18 154/89 H 98 03/18/20 12:10 03/18/20 12:10 03/18/20 12:10 03/18/20 12:10 03/18/20 12:10 Intake & Output 03/17/20 03/18/20 03/19/20 06:59 06:59 06:59 Intake Total 0 972 0 Output Total 550 800 Balance -550 172 0 Weight 93.1 kg 94.7 kg 94.7 kg General appearance: PRESENT: well-developed, well-nourished, other - in moderate distress Head exam: PRESENT: atraumatic, normocephalic Eye exam: PRESENT: conjunctiva pink, EOMI, PERRLA. ABSENT: scleral icterus Mouth exam: PRESENT: dry mucosa, tongue midline Respiratory exam: PRESENT: accessory muscle use, decreased breath sounds - throughout; shallow respirations, symmetrical, tachypnea, wheezes, other - BiPAP dependent; labored respiratory rate 30s to 60s. ABSENT: rales, rhonchi, unlabored Cardiovascular exam: PRESENT: RRR, tachycardia. ABSENT: diastolic murmur, rubs, systolic murmur Pulses: PRESENT: +1 pedal pulses bilateral Vascular exam: PRESENT: pallor GI/Abdominal exam: PRESENT: diminished bowel sounds, soft. ABSENT: distended, guarding, mass, organolmegaly, rebound, tenderness Rectal exam: PRESENT: deferred Gentrourinary exam: PRESENT: indwelling catheter Extremities exam: ABSENT: calf tenderness, clubbing, pedal edema Neurological exam: PRESENT: CN II-XII grossly intact, other - Arousable; was able to tell me his name. Lethargic. ABSENT: motor sensory deficit Psychiatric exam: ABSENT: homicidal ideation, suicidal ideation Skin exam: PRESENT: dry, intact, warm. ABSENT: cyanosis, rash Results Laboratory Results: 03/18/20 12:56 03/18/20 12:56 03/18/20 03/18/20 12:56 12:56 WBC 10.7 H RBC 3.35 L Hgb 11.8 L Hct 34.8 L MCV 104 H MCH 35.3 H MCHC 34.0 RDW 14.5 H Plt Count 203 Sodium 146.4 H Potassium 4.1 Chloride 100 Carbon Dioxide 41 H* Anion Gap 5 BUN 25 H Creatinine 0.55 Est GFR ( Amer) > 60 Glucose 94 Calcium 8.8 03/14/20 03/14/20 03/14/20 18:56 18:56 18:56 Creatine Kinase 30 L CK-MB (CK-2) 1.25 Troponin I 0.035 NT-Pro-B Natriuret Pep 1580 H 03/14/20 03/14/20 03/15/20 22:45 23:56 05:27 Creatine Kinase 25 L CK-MB (CK-2) Troponin I Cancelled 0.032 NT-Pro-B Natriuret Pep 03/15/20 03/15/20 03/15/20 05:27 10:59 10:59 Creatine Kinase 23 L CK-MB (CK-2) 0.94 0.75 Troponin I 0.031 0.024 NT-Pro-B Natriuret Pep 03/15/20 03/15/2003/18/20 16:42 16:42 12:56 Creatine Kinase 25 L CK-MB (CK-2) 0.59 Troponin I 0.021 0.021 NT-Pro-B Natriuret Pep Impressions: Chest X-Ray 03/14/20 19:07 IMPRESSION: Overall, findings suggest pulmonary edema. Superimposed more confluent bibasilar airspace disease could indicate additional edema, pneumonia, and/or atelectasis. copyright 2011 [employer]- All Rights Reserved Chest/Abdomen CTA 03/14/20 20:18 IMPRESSION: Artifact from the patient's arms. Imaging is degraded by patient motion, with resultant artifact. The best possible images were obtained. No central pulmonary embolus. Progressive interstitial and airspace disease, bilaterally. . Venous Doppler Study 03/14/20 20:18 IMPRESSION: No DVT in the right lower extremity. Assessment and Plan - Diagnosis (1) Acute on chronic respiratory failure with hypoxia and hypercapnia Is this a current diagnosis for this admission?: Yes Plan: ABG is slightly improved; BiPAP adjustments are made. CXR is pending. Continue supplemental oxygen and BiPAP. Increased frequency of scheduled nebs. Continue prn nebs. Start IV Solu-medrol for underlying COPD as likely cause of his respiratory failure. IV Morphine prn tachypnea Continued attempts at guiding family in end-of-life decision making. (2) Chronic obstructive pulmonary disease Qualifiers: COPD type: unspecified COPD Qualified Code(s): J44.9 - Chronic obstructive pulmonary disease, unspecified Is this a current diagnosis for this admission?: No Plan: Patient is admitted to [facility] continuous cardiac telemetry. Will provide supplemental oxygen and BiPAP as needed to maintain saturations greater than 89%. ABG today is slightly improved as compared to previously. Additional BiPAP adjustments are made. Continue on scheduled, increased frequency, and as needed nebulizer treatments. Start IV Solu-Medrol. Continue Robitussin prn (3) Acute congestive heart failure Qualifiers: Heart failure type: unspecified Qualified Code(s): I50.9 - Heart failure, unspecified Is this a current diagnosis for this admission?: Yes Plan: Not in acute exacerbation at this time. Clinically dehydrated; poor skin turgor, dry mucous membranes. Echocardiogram indicates EF of 55 to 60% normal with grade 1/grade 4 diastolic dysfunction. As per cardiology notes patient is not in heart failure at this time. Providing gentle IVF fluids. Daily weights, strict I&Os. Cardiology consulted; primary management per their expertise. Respiratory status/prognosis is grave; should status improve, will address maintenance medications. (4) HTN (hypertension) Qualifiers: Hypertension type: essential hypertension Qualified Code(s): I10 - Essential (primary) hypertension Is this a current diagnosis for this admission?: No Plan: Blood pressures somewhat elevated. IV Hydralazine as needed. Not on medications at home, other than Bumex. Monitor blood pressures and start oral antihypertensives if patient's condition improves. (5) DNI (do not intubate) Is this a current diagnosis for this admission?: Yes Plan: Per family members, patients previously with [facility]. No longer followed as the patient's rescinded hospice services so that he could be transferred to the emergency department for management of his tachypnea. Per daughter, ER evaluation care was sought because it was going to take greater than an hour for the hospice nurse to be available to provide assistance in the home. Per daughter, the patient lives alone with his . There limited additional social resources as most of the family lives out of state and the daughter takes care of her (post CVA). Patient's and daughter do not directly address the 's mentation. However, multiple nursing interactions with the lead us to believe that she has moderate dementia with sundowning behaviors noted while she is visiting in the hospital. Despite this, daughter continues to defer entirely to the for decision making. They do agree that patient is a DNI. Both understand that patient's prognosis is grave. 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 Unfortunately, despite understanding (and clear agreement w/ recommendations based on nonverbal communication - nodding, eye contact, body language, etc), the daughter did not intereced to assist w/ decision making. - Time Time Spent with patient: 35 or more minutes Medications reviewed and adjusted accordingly: Yes Anticipated Discharge Disposition: Anticipated Discharge Timeframe: within 72 hours
--- NOTE | 2020-03-18 15:17 | RADIOLOGY REPORT (SQ) ---
EXAM DESCRIPTION: CHEST SINGLE VIEW IMAGES COMPLETED DATE/TIME: 03/18/2020 3:04 pm REASON FOR STUDY: dyspnea, hypoxia COMPARISON: 03/14/2020 NUMBER OF VIEWS: One view. TECHNIQUE: Single frontal radiographic image of the chest acquired. LIMITATIONS: Poor inspiratory effort. FINDINGS: LUNGS AND PLEURA: Bilateral airspace disease and right-sided volume loss with slightly bet ter definition of the left diaphragm. MEDIASTINUM AND HEART: Stable heart size and mediastinal structures. BONY STRUCTURES: No acute findings. HARDWARE: None. OTHER: No other significant finding. IMPRESSION: Slight improvement. TECHNICAL DOCUMENTATION: JOB ID: [id number] Reading location - IP/workstation name: [email or web address]
--- NOTE | 2020-03-18 15:19 | ADVANCED CARE ---
- Diagnosis (1) Acute on chronic respiratory failure with hypoxia and hypercapnia Diagnosis Current: Yes (2) Chronic obstructive pulmonary disease Diagnosis Current: Yes (3) Acute congestive heart failure Diagnosis Current: Yes (4) HTN (hypertension) Diagnosis Current: Yes (5) DNI (do not intubate) Diagnosis Current: Yes Attendance: Patient's and daughter. Resuscitation Status: Do Not Intubate Discussion: Per family members, patients previously with [facility]. No longer followed as the patient's rescinded hospice services so that he could be transferred to the emergency department for management of his tachypnea. Per daughter, ER evaluation care was sought because it was going to take greater than an hour for the hospice nurse to be available to provide assistance in the home. Per daughter, the patient lives alone with his . There limited additional social resources as most of the family lives out of state and the daughter takes care of her (post CVA). Patient's and daughter do not directly address the 's mentation. However, multiple nursing interactions with the lead us to believe that she has moderate dementia with sundowning behaviors noted while she is visiting in the hospital. Despite this, daughter continues to defer entirely to the for decision making. They do agree that patient is a DNI. Both understand that patient's prognosis is grave. 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 Unfortunately, despite understanding (and clear agreement w/ recommendations based on nonverbal communication - nodding, eye contact, body language, etc), the daughter did not intereced to assist w/ decision making Care Planning Goals: Lab eval (CBC, BMP, Troponin) and CXR today. Continued Goals of Care discussion. DNI MOST form provided to daughter; encouraged her and her family members to discuss MOST w/ regard to her mother (patient's ) as during our discussion they disclosed that she does not have a Living Will or POA to help guide end-of-life care either. Time Spent: 40 min
[2020-03-18] MEDS: NORMAL SALINE 1000 ML 1,000 ML IV PRN (17:56)
[2020-03-18] MEDS: METHYLPREDNISOLONE INJ 40 MG/1 ML SDV IV SCH (21:59)
[2020-03-19] MEDS: NORMAL SALINE 1000 ML 1,000 ML IV PRN (01:10)
[2020-03-19] MEDS: IPRATROPIUM BROMIDE 0.02% NEB 0.5 MG/2.5 ML AMPUL NEB SCH ×4 (02:41→20:45)
[2020-03-19] MEDS: LEVALBUTEROL HCL NEB 1.25 MG/3 ML AMPUL NEB SCH ×4 (02:41→20:45)
[2020-03-19] MEDS: MORPHINE SULFATE 10 MG/ML INJ IV PRN ×4 (05:46→13:57)
[2020-03-19] MEDS: METHYLPREDNISOLONE INJ 40 MG/1 ML SDV IV SCH ×3 (05:47→21:29)
[2020-03-19] MEDS: HEPARIN SOD (PORCINE) 5,000 UNIT/ML 1 ML VIAL SUBCUT SCH ×3 (05:47→21:30)
[2020-03-19] MEDS: DOCUSATE SODIUM 100 MG CAPSULE PO SCH (12:34)
[2020-03-19] MEDS: FLUTICASONE NASAL SPRAY 50 MCG/SPRY 120 SPRAY/16 GM NASL SCH (12:34)
[2020-03-19] MEDS: ASPIRIN 81 MG TABLET, ENT COATED PO SCH (12:34)
--- NOTE | 2020-03-19 14:55 | PDOC PROGRESS REPORT ---
Subjective Progress Note for:: 03/19/20 Subjective:: Patient is 85-year-old male with a past medical history of [place], hypertension, hyperlipidemia, CAD, COPD, chronic respiratory failure, recently having rescinded hospice services in order to seek care in the emergency department for respiratory distress, depression, and tobacco dependency who was admitted 03/14/2020 with acute pulmonary edema with CHF resulting in an acute on chronic respiratory failure with hypoxia and hypercapnia. Patient was seen on morning rounds with and daughter present (different daughter than yesterday). He was found resting in bed on supplemental oxygen via BiPAP. He is noted to be arousable but quite lethargic; continued increased work of breathing with tachypnea, accessory muscle use, and a variable respiratory rate of 30-60. Patient denies pain but does not answer any further questions. ROS is thus limited. Reviewed with spouse and daughter that patient continues to show severe respiratory distress (specifically used terms "struggling" and "alleviate his suffering"). As yesterday, spouse does not appear to comprehend his current state (asks when he will be well enough to go home as he "is better today") and daughter confirms family desire to defer all decision making to their mother. Daughter does state that the mother/spouse's sister (patient's [id number]) will be arriving from out of town on Friday and that "she may be able to help my mother with this decision." Per nursing, the patient was awake earlier today and requested to have something to drink; he was placed on nasal cannula 5 L/min and desatted to 78% within 15 minutes. Was immediately placed back to BiPAP and has not tolerated any weaning attempts since that time. Reason For Visit: ACUTE CONGESTIVE HEART FAILURE,ACUTE PULMONARY Physical Exam Vital Signs: Temp Pulse Resp BP Pulse Ox 98.0 F 91 50 H 116/57 L 98 03/19/20 11:53 03/19/20 11:53 03/19/20 11:58 03/19/20 11:53 03/19/20 11:58 Intake & Output 03/18/20 03/19/20 03/20/20 06:59 06:59 06:59 Intake Total 972 1720 180 Output Total 800 950 150 Balance 172 770 30 Weight 94.7 kg 94.7 kg General appearance: PRESENT: well-developed, well-nourished, other - moderate distress Head exam: PRESENT: atraumatic, normocephalic Eye exam: PRESENT: conjunctiva pink, EOMI, PERRLA. ABSENT: scleral icterus Mouth exam: PRESENT: moist, tongue midline Respiratory exam: PRESENT: accessory muscle use, decreased breath sounds, tachypnea, other - BiPAP dependent; labored respiratory rate 30s to 60s.. ABSENT: rales, rhonchi, unlabored, wheezes Cardiovascular exam: PRESENT: RRR. ABSENT: diastolic murmur, rubs, systolic murmur Vascular exam: PRESENT: pallor Gentrourinary exam: PRESENT: indwelling catheter Extremities exam: PRESENT: full ROM. ABSENT: calf tenderness, clubbing, pedal edema Neurological exam: PRESENT: alert, awake, oriented to person, CN II-XII grossly intact, other - Lethargic. ABSENT: motor sensory deficit Skin exam: PRESENT: dry, intact, warm. ABSENT: cyanosis, rash Results Laboratory Results: 03/18/20 12:56 03/18/20 12:56 03/14/20 03/14/20 03/14/20 18:56 18:56 18:56 Creatine Kinase 30 L CK-MB (CK-2) 1.25 Troponin I 0.035 NT-Pro-B Natriuret Pep 1580 H 03/14/20 03/14/20 03/15/20 22:45 23:56 05:27 Creatine Kinase 25 L CK-MB (CK-2) Troponin I Cancelled 0.032 NT-Pro-B Natriuret Pep 03/15/20 03/15/20 03/15/20 05:27 10:59 10:59 Creatine Kinase 23 L CK-MB (CK-2) 0.94 0.75 Troponin I 0.031 0.024 NT-Pro-B Natriuret Pep 03/15/20 03/15/20 03/18/20 16:42 16:42 12:56 Creatine Kinase 25 L CK-MB (CK-2) 0.59 Troponin I 0.021 0.021 NT-Pro-B Natriuret Pep Impressions: Chest/Abdomen CTA 03/14/20 20:18 IMPRESSION: Artifact from the patient's arms. Imaging is degraded by patient motion, with resultant artifact. The best possible images were obtained. No central pulmonary embolus. Progressive interstitial and airspace disease, bilaterally. . Venous Doppler Study 03/14/20 20:18 IMPRESSION: No DVT in the right lower extremity. Chest X-Ray 03/18/20 00:00 IMPRESSION: Slight improvement. Assessment and Plan - Diagnosis (1) Acute on chronic respiratory failure with hypoxia and hypercapnia Is this a current diagnosis for this admission?: Yes Plan: ABG is slightly improved; BiPAP adjustments are made. CXR is shows minimal improvement. Continue supplemental oxygen and BiPAP. Continue scheduled nebs. Continue prn nebs. Continue IV Solu-medrol for underlying COPD as likely cause of his respiratory failure. IV Morphine prn tachypnea Continued attempts at guiding family in end-of-life decision making. (2) Chronic obstructive pulmonary disease Qualifiers: COPD type: unspecified COPD Qualified Code(s): J44.9 - Chronic obstructive pulmonary disease, unspecified Is this a current diagnosis for this admission?: No Plan: End-stage COPD. Patient is admitted to [facility] continuous cardiac telemetry. Will provide supplemental oxygen and BiPAP as needed to maintain saturations greater than 89%. ABG yesterday is slightly improved as compared to previously. Additional BiPAP adjustments are made. Continue on scheduled, increased frequency, and as needed nebulizer treatments. Continue IV Solu-Medrol. Continue Robitussin prn (3) Acute congestive heart failure Qualifiers: Heart failure type: unspecified Qualified Code(s): I50.9 - Heart failure, unspecified Is this a current diagnosis for this admission?: Yes Plan: Not in acute exacerbation at this time. Clinically dehydrated; poor skin turgor, dry mucous membranes. Echocardiogram indicates EF of 55 to 60% normal with grade 1/grade 4 diastolic dysfunction. As per cardiology notes patient is not in heart failure at this time. Providing gentle IVF fluids. Daily weights, strict I&Os. Cardiology consulted; primary management per their expertise. Respiratory status/prognosis is grave; should status improve, will address maintenance medications. (4) HTN (hypertension) Qualifiers: Hypertension type: essential hypertension Qualified Code(s): I10 - Essential (primary) hypertension Is this a current diagnosis for this admission?: No Plan: Blood pressures somewhat elevated. IV Hydralazine as needed. Not on medications at home, other than Bumex. Monitor blood pressures and start oral antihypertensives if patient's condition improves. (5) DNI (do not intubate) Is this a current diagnosis for this admission?: Yes Plan: Per family members, patients previously with [facility]. No longer followed as the patient's rescinded hospice services so that he could be transferred to the emergency department for management of his tachypnea. Per daughter, ER evaluation care was sought because it was going to take greater than an hour for the hospice nurse to be available to provide assistance in the home. Per daughter, the patient lives alone with his . There limited additional social resources as most of the family lives out of state and the daughter takes care of her (post CVA). Multiple nursing interactions with the has lead us to believe that she has moderate dementia with sundowning behaviors noted while she is visiting in the hospital. Despite this, daughter continues to defer entirely to the for decision making. They do agree that patient is a DNI. Both understand that patient's prognosis is grave. 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 Unfortunately, despite understanding (and clear agreement w/ recommendations based on nonverbal communication - nodding, eye contact, body language, etc), the daughter did not intereced to assist w/ decision making. Discussed with the patient's other daughter today; she agrees as above that the patient will remain DNI until her mother/patient spouse, decides otherwise. She does indicate that another family member will be arriving from out of town on Friday who may be able to assist their mother in care decision making. Both daughters have used the statement, "mom would never forgive us" when suggesting that we deferring to them for decision-making purposes. - Plan Summary Summary: Will plan on requesting ethics committee review tomorrow; both daughters had acknowledged their mothers forgetfulness, inability to make decisions, and dementia, however, they continue to defer to her for all decision making. Per nursing, daughters are the actual POA. - Time Time Spent with patient: 35 or more minutes Medications reviewed and adjusted accordingly: Yes Anticipated Discharge Disposition: Anticipated Discharge Timeframe: UTD
[2020-03-20] MEDS: LEVALBUTEROL HCL NEB 1.25 MG/3 ML AMPUL NEB SCH ×4 (02:30→20:31)
[2020-03-20] MEDS: IPRATROPIUM BROMIDE 0.02% NEB 0.5 MG/2.5 ML AMPUL NEB SCH ×4 (02:30→20:31)
[2020-03-20] MEDS: MORPHINE SULFATE 10 MG/ML INJ IV PRN ×4 (02:34→14:49)
[2020-03-20] MEDS: NORMAL SALINE 1000 ML 1,000 ML IV PRN ×2 (02:36→14:48)
[2020-03-20] MEDS: METHYLPREDNISOLONE INJ 40 MG/1 ML SDV IV SCH ×3 (05:48→22:44)
[2020-03-20] MEDS: HEPARIN SOD (PORCINE) 5,000 UNIT/ML 1 ML VIAL SUBCUT SCH ×3 (05:48→22:44)
[2020-03-20] MEDS: DOCUSATE SODIUM 100 MG CAPSULE PO SCH (11:40)
[2020-03-20] MEDS: ASPIRIN 81 MG TABLET, ENT COATED PO SCH (11:41)
[2020-03-20] MEDS: FLUTICASONE NASAL SPRAY 50 MCG/SPRY 120 SPRAY/16 GM NASL SCH (11:41)
[2020-03-20] MEDS: LORAZEPAM INJ 2 MG/1 ML VIAL IV PRN (16:04)
--- NOTE | 2020-03-20 17:28 | PDOC PROGRESS REPORT ---
Subjective Progress Note for:: 03/20/20 Subjective:: Patient is 85-year-old male with a past medical history of CT, hypertension, hyperlipidemia, CAD, COPD, chronic respiratory failure, recently having rescinded hospice services in order to seek care in the emergency department for respiratory distress, depression, and tobacco dependency who was admitted 03/14/2020 with acute pulmonary edema with CHF resulting in an acute on chronic respiratory failure with hypoxia and hypercapnia. Patient was seen on afternoon rounds with and daughter present. He was found resting in bed on supplemental oxygen via BiPAP. He is awake and orientated to self. Quite lethargic. Continued increased work of breathing with tachypnea, accessory muscle use, and a variable respiratory rate of 30-60 during my assessment (although nursing documentation reflects RR ~20). ROS is thus limited. Reviewed with spouse and daughter that patient continues to show severe respiratory distress (specifically used terms "struggling" and "alleviate his suffering"). Daughter confirms that the mother/spouse's sister (patient's [id number]) will be arriving from out of town this evening and that "she may be able to help my mother with this decision." No other questions or concerns per family. No concerns per nursing. Reason For Visit: ACUTE CONGESTIVE HEART FAILURE,ACUTE PULMONARY Physical Exam Vital Signs: Temp Pulse Resp BP Pulse Ox 98.4 F 72 18 134/65 H 93 03/20/20 10:57 03/20/20 14:00 03/20/20 16:37 03/20/20 10:57 03/20/20 16:37 Intake & Output 03/19/20 03/20/20 03/21/20 06:59 06:59 06:59 Intake Total 1720 1230 Output Total 950 575 Balance 770 655 Weight 94.7 kg 97.9 kg General appearance: PRESENT: no acute distress, obese, well-nourished, other - moderate distress Head exam: PRESENT: atraumatic, normocephalic Eye exam: PRESENT: conjunctiva pink, EOMI, PERRLA. ABSENT: scleral icterus Mouth exam: PRESENT: dry mucosa, tongue midline Respiratory exam: PRESENT: accessory muscle use, decreased breath sounds - throughout, symmetrical, tachypnea - RR 30-60, other - Labored; BiPAP dependent. ABSENT: rales, rhonchi, wheezes Cardiovascular exam: PRESENT: RRR. ABSENT: diastolic murmur, rubs, systolic murmur Vascular exam: PRESENT: pallor Rectal exam: PRESENT: deferred Gentrourinary exam: PRESENT: indwelling catheter Extremities exam: PRESENT: full ROM. ABSENT: calf tenderness, clubbing, pedal edema Neurological exam: PRESENT: alert, awake, oriented to person, CN II-XII grossly intact, other - Lethargic. ABSENT: motor sensory deficit Skin exam: PRESENT: dry, intact, warm. ABSENT: cyanosis, rash Results Laboratory Results: 03/18/20 12:56 03/18/20 12:56 03/14/20 18:56 Blood Blood Culture - Final NO GROWTH IN 5 DAYS 03/14/20 22:45 Blood Blood Culture - Final NO GROWTH IN 5 DAYS 03/14/20 03/14/20 03/14/20 18:56 18:56 18:56 Creatine Kinase 30 L CK-MB (CK-2) 1.25 Troponin I 0.035 NT-Pro-B Natriuret Pep 1580 H 03/14/20 03/14/20 03/15/20 22:45 23:56 05:27 Creatine Kinase 25 L CK-MB (CK-2) Troponin I Cancelled 0.032 NT-Pro-B Natriuret Pep 03/15/20 03/15/20 03/15/20 05:27 10:59 10:59 Creatine Kinase 23 L CK-MB (CK-2) 0.94 0.75 Troponin I 0.031 0.024 NT-Pro-B Natriuret Pep 03/15/20 03/15/20 03/18/20 16:42 16:42 12:56 Creatine Kinase 25 L CK-MB (CK-2) 0.59 Troponin I 0.021 0.021 NT-Pro-B Natriuret Pep Impressions: Chest/Abdomen CTA 03/14/20 20:18 IMPRESSION: Artifact from the patient's arms. Imaging is degraded by patient motion, with resultant artifact. The best possible images were obtained. No central pulmonary embolus. Progressive interstitial and airspace disease, bilaterally. . Venous Doppler Study 03/14/20 20:18 IMPRESSION: No DVT in the right lower extremity. Chest X-Ray 03/18/20 00:00 IMPRESSION: Slight improvement. Assessment and Plan - Diagnosis (1) Acute on chronic respiratory failure with hypoxia and hypercapnia Is this a current diagnosis for this admission?: Yes Plan: Repeat ABG is slightly improved; BiPAP adjustments are made. Review CXR is shows minimal improvement. Continue supplemental oxygen and BiPAP. Continue scheduled nebs. Continue prn nebs. Continue IV Solu-medrol for underlying COPD as likely cause of his respiratory failure. IV Morphine prn tachypnea Continued attempts at guiding family in end-of-life decision making. (2) Chronic obstructive pulmonary disease Qualifiers: COPD type: unspecified COPD Qualified Code(s): J44.9 - Chronic obstructive pulmonary disease, unspecified Is this a current diagnosis for this admission?: No Plan: End-stage COPD. Patient is admitted to [facility] continuous cardiac telemetry. Will provide supplemental oxygen and BiPAP as needed to maintain saturations greater than 89%. Continue on scheduled and as needed nebulizer treatments. Continue IV Solu-Medrol. Continue Robitussin prn (3) Acute congestive heart failure Qualifiers: Heart failure type: unspecified Qualified Code(s): I50.9 - Heart failure, unspecified Is this a current diagnosis for this admission?: Yes Plan: Not in acute exacerbation at this time. Clinically dehydrated; poor skin turgor, dry mucous membranes. Echocardiogram indicates EF of 55 to 60% normal with grade 1/grade 4 diastolic dysfunction. As per cardiology notes patient is not in heart failure at this time. Providing gentle IVF fluids. Daily weights, strict I&Os. Cardiology consulted; primary management per their expertise. Respiratory status/prognosis is grave; should status improve, will address maintenance medications. (4) HTN (hypertension) Qualifiers: Hypertension type: essential hypertension Qualified Code(s): I10 - Essential (primary) hypertension Is this a current diagnosis for this admission?: No Plan: Blood pressures somewhat elevated. IV Hydralazine as needed. Not on medications at home, other than Bumex. Monitor blood pressures and start oral antihypertensives if patient's condition improves. (5) DNI (do not intubate) Is this a current diagnosis for this admission?: Yes Plan: Per family members, patients previously with [facility]. No longer followed as the patient's rescinded hospice services so that he could be transferred to the emergency department for management of his tachypnea. Per daughter, ER evaluation care was sought because it was going to take greater than an hour for the hospice nurse to be available to provide assistance in the home. Per daughter, the patient lives alone with his . There limited additional social resources as most of the family lives out of state and the daughter takes care of her (post CVA). Multiple nursing interactions with the has lead us to believe that she has moderate dementia with sundowning behaviors noted while she is visiting in the hospital. Despite this, daughter continues to defer entirely to the for decision making. Multiple discussions had with the patient's and 2 daughters. Today, the asks me if he is getting better. I tell her no, that I think that he will pass away of his COPD in the near future. Discussed transition to [employer]; not yet able to make this decision. Daughters are awaiting arrival of their aunt; they feel that she may be able to ease the decision-making process. - Plan Summary Summary: Consider requesting ethics committee review tomorrow. Both daughters had a cknowledged their mothers forgetfulness, inability to make decisions, and dementia, however, they continue to defer to her for all decision making. Daughters indicate that they are and is arriving this evening to talk with their mother. - Time Time Spent with patient: 25-34 minutes Medications reviewed and adjusted accordingly: Yes Anticipated Discharge Disposition: Anticipated Discharge Timeframe: Undetermined
[2020-03-21] MEDS: LORAZEPAM INJ 2 MG/1 ML VIAL IV PRN ×5 (00:24→22:04)
[2020-03-21] MEDS: LEVALBUTEROL HCL NEB 1.25 MG/3 ML AMPUL NEB SCH ×4 (02:33→20:46)
[2020-03-21] MEDS: IPRATROPIUM BROMIDE 0.02% NEB 0.5 MG/2.5 ML AMPUL NEB SCH ×4 (02:33→20:46)
[2020-03-21] MEDS: HEPARIN SOD (PORCINE) 5,000 UNIT/ML 1 ML VIAL SUBCUT SCH ×3 (05:26→22:03)
[2020-03-21] MEDS: NORMAL SALINE 1000 ML 1,000 ML IV PRN ×2 (05:45→18:28)
[2020-03-21] MEDS: MORPHINE SULFATE 10 MG/ML INJ IV PRN ×2 (05:49→23:33)
[2020-03-21] MEDS: METHYLPREDNISOLONE INJ 40 MG/1 ML SDV IV SCH ×3 (05:49→22:05)
[2020-03-21] MEDS: DOCUSATE SODIUM 100 MG CAPSULE PO SCH (11:19)
[2020-03-21] MEDS: ASPIRIN 81 MG TABLET, ENT COATED PO SCH (11:19)
[2020-03-21] MEDS: FLUTICASONE NASAL SPRAY 50 MCG/SPRY 120 SPRAY/16 GM NASL SCH (11:19)
--- NOTE | 2020-03-21 14:30 | PDOC PROGRESS REPORT ---
Subjective Progress Note for:: 03/21/20 Subjective:: Patient was seen and examined today. He continues to be on BiPAP. He is rather laid out in bed and does not respond very well. No family at bedside. Reason For Visit: ACUTE CONGESTIVE HEART FAILURE,ACUTE PULMONARY Physical Exam Vital Signs: Temp Pulse Resp BP Pulse Ox 98.1 F 99 32 H 130/57 H 95 03/21/20 11:57 03/21/20 13:53 03/21/20 13:53 03/21/20 11:57 03/21/20 13:53 Intake & Output 03/20/20 03/21/20 03/22/20 06:59 06:59 06:59 Intake Total 1230 670 Output Total 575 725 Balance 655 -55 Weight 97.9 kg 94.3 kg General appearance: PRESENT: mild distress, obese, well-developed, well- nourished Head exam: PRESENT: atraumatic, normocephalic Eye exam: PRESENT: EOMI Mouth exam: PRESENT: moist Respiratory exam: PRESENT: decreased breath sounds, rhonchi, symmetrical Cardiovascular exam: PRESENT: +S1, +S2 Pulses: PRESENT: normal radial pulses GI/Abdominal exam: PRESENT: soft Rectal exam: PRESENT: deferred Neurological exam: PRESENT: altered Skin exam: PRESENT: dry, intact Results Laboratory Results: 03/18/20 12:56 03/18/20 12:56 03/14/20 03/14/20 03/14/20 18:56 18:56 18:56 Creatine Kinase 30 L CK-MB (CK-2) 1.25 Troponin I 0.035 NT-Pro-B Natriuret Pep 1580 H 03/14/20 03/14/20 03/15/20 22:45 23:56 05:27 Creatine Kinase 25 L CK-MB (CK-2) Troponin I Cancelled 0.032 NT-Pro-B Natriuret Pep 03/15/20 03/15/20 03/15/20 05:27 10:59 10:59 Creatine Kinase 23 L CK-MB (CK-2) 0.94 0.75 Troponin I 0.031 0.024 NT-Pro-B Natriuret Pep 03/15/20 03/15/20 03/18/20 16:42 16:42 12:56 Creatine Kinase 25 L CK-MB (CK-2) 0.59 Troponin I 0.021 0.021 NT-Pro-B Natriuret Pep Impressions: Chest/Abdomen CTA 03/14/20 20:18 IMPRESSION: Artifact from the patient's arms. Imaging is degraded by patient motion, with resultant artifact. The best possible images were obtained. No central pulmonary embolus. Progressive interstitial and airspace disease, bilaterally. . Venous Doppler Study 03/14/20 20:18 IMPRESSION: No DVT in the right lower extremity. Chest X-Ray 03/18/20 00:00 IMPRESSION: Slight improvement. Assessment & Plan - Diagnosis (1) Acute and chronic respiratory failure with hypercapnia Is this a current diagnosis for this admission?: Yes Plan: Hypoxic respiratory failure probably on account of COPD Excessive work of breathing noted Supportive care and noninvasive ventilation to be continued. Difficulty establish CODE STATUS and discussion with the I suspect he is going to get tired. CODE STATUS has been addressed to some measure and is a DO NOT INTUBATE now. This is appropriate (2) Acute congestive heart failure Qualifiers: Heart failure type: unspecified Qualified Code(s): I50.9 - Heart failure, unspecified Is this a current diagnosis for this admission?: Yes Plan: Current clinical picture does not support decompensated congestive heart fa ilure. He has diminished urine output which may suggest that he is intravascularly volume depleted. (3) Coronary artery disease Qualifiers: Coronary Disease-Associated Artery/Lesion type: [place] artery [place] vs. transplanted heart: [place] heart Associated angina: without angina Qualified Code(s): I25.10 - Atherosclerotic heart disease of [place] coronary artery without angina pectoris Is this a current diagnosis for this admission?: Yes Plan: No ischemic symptoms. (4) COPD exacerbation Is this a current diagnosis for this admission?: Yes Plan: CAP COPD exacerbation Continue bronchodilator therapy supportive care
[2020-03-21] MEDS ORDERED: TRAMADOL HCL 50 MG TABLET PO PRN (17:39)
[2020-03-21] MEDS ORDERED: NITROGLYCERIN 0.4 MG/TAB 25 TAB/BOTTLE SL PRN (17:39)
[2020-03-21] MEDS ORDERED: PROMETHAZINE HCL 25 MG TABLET PO PRN (17:41)
[2020-03-21] MEDS ORDERED: DILTIAZEM HCL INJ 25 MG/5 ML VIAL IV ONE (17:45)
[2020-03-21] MEDS ORDERED: METOPROLOL TARTRATE PF/INJ 5 MG/5 ML SDV IV PRN (17:46)
--- NOTE | 2020-03-21 17:50 | PDOC PROGRESS REPORT ---
Subjective Progress Note for:: 03/21/20 Subjective:: The patient is currently on BiPAP. His and [id number] are at the bedside. His respiratory rate will be as high as 50 and then as low as 25. FiO2 is 40%. He is also experiencing tachycardia. Reason For Visit: ACUTE CONGESTIVE HEART FAILURE,ACUTE PULMONARY Physical Exam Vital Signs: Temp Pulse Resp BP Pulse Ox 98.1 F 86 24 H 130/57 H 95 03/21/20 11:57 03/21/20 14:00 03/21/20 16:35 03/21/20 11:57 03/21/20 13:53 Intake & Output 03/20/20 03/21/20 03/22/20 06:59 06:59 06:59 Intake Total 1230 670 Output Total 575 725 Balance 655 -55 Weight 97.9 kg 94.3 kg General appearance: PRESENT: cooperative - Attempts to talk with BiPAP in place, well-developed, other - Moderate distress Head exam: PRESENT: atraumatic, normocephalic Eye exam: PRESENT: other Ear exam: PRESENT: normal external ear exam - BiPAP mask in place. ABSENT: bleeding, drainage Mouth exam: PRESENT: other - BiPAP mask in place Respiratory exam: PRESENT: decreased breath sounds - Limited inspiratory phase. Difficult to auscultate especially with BiPAP in place., symmetrical, tachypnea. ABSENT: rhonchi, wheezes Cardiovascular exam: PRESENT: +S1, +S2, tachycardia. ABSENT: bradycardia, diastolic murmur, irregular rhythm GI/Abdominal exam: PRESENT: normal bowel sounds, soft, other - Protuberant abdomen. ABSENT: guarding, tenderness Rectal exam: PRESENT: deferred Gentrourinary exam: PRESENT: indwelling catheter Extremities exam: PRESENT: pedal edema Musculoskeletal exam: PRESENT: normal inspection. ABSENT: deformity, dislocation Neurological exam: PRESENT: alert, awake, oriented to person, oriented to place, other - Difficult to comprehend due to the BiPAP mask. Psychiatric exam: PRESENT: anxious Focused psych exam: ABSENT: delusional, paranoid, restlessness Skin exam: PRESENT: other - Facial flushing Results Laboratory Results: 03/18/20 12:56 03/18/20 12:56 03/14/20 03/14/20 03/14/20 18:56 18:56 18:56 Creatine Kinase 30 L CK-MB (CK-2) 1.25 Troponin I 0.035 NT-Pro-B Natriuret Pep 1580 H 03/14/20 03/14/20 03/15/20 22:45 23:56 05:27 Creatine Kinase 25 L CK-MB (CK-2) Troponin I Cancelled 0.032 NT-Pro-B Natriuret Pep 03/15/20 03/15/20 03/15/20 05:27 10:59 10:59 Creatine Kinase 23 L CK-MB (CK-2) 0.94 0.75 Troponin I 0.031 0.024 NT-Pro-B Natriuret Pep 03/15/20 03/15/20 03/18/20 16:42 16:42 12:56 Creatine Kinase 25 L CK-MB (CK-2) 0.59 Troponin I 0.021 0.021 NT-Pro-B Natriuret Pep Impressions: Chest/Abdomen CTA 03/14/20 20:18 IMPRESSION: Artifact from the patient's arms. Imaging is degraded by patient motion, with resultant artifact. The best possible images were obtained. No central pulmonary embolus. Progressive interstitial and airspace disease, bilaterally. . Venous Doppler Study 03/14/20 20:18 IMPRESSION: No DVT in the right lower extremity. Chest X-Ray 03/18/20 00:00 IMPRESSION: Slight improvement. Assessment and Plan - Diagnosis (1) Acute on chronic respiratory failure with hypoxia and hypercapnia Is this a current diagnosis for this admission?: Yes (2) Chronic obstructive pulmonary disease Qualifiers: COPD type: unspecified COPD Qualified Code(s): J44.9 - Chronic obstructive pulmonary disease, unspecified Is this a current diagnosis for this admission?: Yes (3) Acute diastolic heart failure Is this a current diagnosis for this admission?: Yes (4) HTN (hypertension) Qualifiers: Hypertension type: essential hypertension Qualified Code(s): I10 - Essen tial (primary) hypertension Is this a current diagnosis for this admission?: Yes (5) DNI (do not intubate) Is this a current diagnosis for this admission?: Yes (6) Atrial fibrillation with rapid ventricular response Is this a current diagnosis for this admission?: Yes - Plan Summary Summary: Consider requesting ethics committee review tomorrow. Both daughters had acknowledged their mothers forgetfulness, inability to make decisions, and dem entia, however, they continue to defer to her for all decision making. Daughters indicate that they are and is arriving this evening to talk with their mother. 03/21/2020 Patient is still struggling. Part of the tachypnea is anxiety. If you can get him to focus his breathing does slow. He still has CO2 retention. I reviewed cardiology note. They do not believe he has acute decompensated heart failure. He does have chronic grade 1/4 diastolic dysfunction with a normal ejection fraction. Because of the low urine output I am going to increase his fluids to 125 mL an hour. I will hold his diuretics for the time being. I explained to the patient's that we are trying to help the lungs by getting rid of carbon dioxide. Explained to the patient that he should try to relax and let the BiPAP machine do most of the work. There are some medications for anxiety and discomfort available. 03/21/2020 6:12 PM I was called by the nurse to let me know that the patient has gone into atrial fibrillation with rapid ventricular response. I have administered intravenous diltiazem and started oral dosing. Will reassess the patient. - Time Time Spent with patient: 15-24 minutes Medications reviewed and adjusted accordingly: Yes Anticipated Discharge Disposition: Home with Hospice Anticipated Discharge Timeframe: within 72 hours
[2020-03-21] MEDS: DILTIAZEM HCL 60 MG TABLET PO SCH ×2 (18:24→23:33)
[2020-03-21 19:19] LABS: BLOOD UREA NITROGEN 34 mg/dL (7-20); CALCIUM 8.5 mg/dL (8.4-10.2); CHLORIDE 111 mmol/L (98-107); GLUCOSE 120 mg/dL (75-110); POTASSIUM 3.9 mmol/L (3.6-5.0)
[2020-03-21 19:32] LABS: CARBON DIOXIDE 41 mmol/L (22-30)
[2020-03-21 19:49] LABS: ANION GAP 2 (5-19)
[2020-03-21] MEDS: ATORVASTATIN CALCIUM 40 MG TABLET PO SCH (22:55)
--- NOTE | 2020-03-22 00:57 | EKG REPORT ---
SEVERITY:- ABNORMAL ECG - ATRIAL FIBRILLATION, V-RATE 105-167 INCOMPLETE RIGHT BUNDLE BRANCH BLOCK ST DEPRESSION, PROBABLY RATE RELATED BORDERLINE PROLONGED QT INTERVAL : Confirmed by: Emil Renteria 22-Mar-2020 00:56:52
[2020-03-22] MEDS: LEVALBUTEROL HCL NEB 1.25 MG/3 ML AMPUL NEB SCH ×4 (02:20→20:34)
[2020-03-22] MEDS: IPRATROPIUM BROMIDE 0.02% NEB 0.5 MG/2.5 ML AMPUL NEB SCH ×4 (02:20→20:34)
[2020-03-22] MEDS: NORMAL SALINE 1000 ML 1,000 ML IV PRN ×2 (03:00→13:16)
[2020-03-22 04:39] LABS: HEMATOCRIT 36.9 % (37.9-51.0); HEMOGLOBIN 12.1 g/dL (13.5-17.0); MEAN CORPUSCULAR HEMOGLOBIN 34.6 pg (27.0-33.4); MEAN CORPUSCULAR HGB CONC 32.9 g/dL (32.0-36.0); MEAN CORPUSCULAR VOLUME 105 fl (80-97); PLATELET COUNT 169 10^3/uL (150-450); RED BLOOD COUNT 3.51 10^6/uL (4.35-5.55); RED CELL DISTRIBUTION WIDTH 14.1 % (11.5-14.0); WHITE BLOOD COUNT 10.5 10^3/uL (4.0-10.5)
[2020-03-22] MEDS ORDERED: MORPHINE SULFATE 10 MG/ML INJ IV PRN (04:52)
[2020-03-22] MEDS: METHYLPREDNISOLONE INJ 40 MG/1 ML SDV IV SCH ×3 (05:06→21:49)
[2020-03-22] MEDS: HEPARIN SOD (PORCINE) 5,000 UNIT/ML 1 ML VIAL SUBCUT SCH ×3 (05:06→21:49)
[2020-03-22] MEDS: DILTIAZEM HCL 60 MG TABLET PO SCH ×3 (05:07→18:29)
[2020-03-22] MEDS ORDERED: MORPHINE SULFATE 10 MG/ML INJ ONE (05:14)
[2020-03-22] MEDS: MORPHINE SULFATE 10 MG/ML INJ IV PRN ×2 (05:15→13:31)
[2020-03-22 06:04] LABS: ALBUMIN 2.8 g/dL (3.5-5.0); ALKALINE PHOSPHATASE 143 U/L (38-126); ASPARTATE AMINO TRANSFERASE 32 U/L (17-59); BILIRUBIN,DIRECT 0.4 mg/dL (0.0-0.4); BILIRUBIN,TOTAL 1.1 mg/dL (0.2-1.3); BLOOD UREA NITROGEN 33 mg/dL (7-20); CALCIUM 8.5 mg/dL (8.4-10.2); CARBON DIOXIDE 38 mmol/L (22-30); CHLORIDE 111 mmol/L (98-107); GLUCOSE 141 mg/dL (75-110); POTASSIUM 4.1 mmol/L (3.6-5.0)
[2020-03-22 06:07] LABS: ANION GAP 3 (5-19)
[2020-03-22 06:15] LABS: ABSOLUTE LYMPHOCYTES# (MANUAL) 0.5 10^3/uL (0.5-4.7); ABSOLUTE MONOCYTES # (MANUAL) 0.3 10^3/uL (0.1-1.4); ANISOCYTOSIS SLIGHT; BASOPHILS % (MANUAL) 0 % (0-2); EOSINOPHILS % (MANUAL) 0 % (0-6); LYMPHOCYTES % (MANUAL) 5 % (13-45); METAMYELOCYTES % (MANUAL) 1 % (0-1); MONOCYTES % (MANUAL) 3 % (3-13); OVALOCYTES SLIGHT; PLATELET COMMENT ADEQUATE; POIKILOCYTOSIS SLIGHT; SCHISTOCYTES SLIGHT; SEGMENTED NEUTROPHILS % (MAN) 91 % (42-78); TEAR DROP CELLS SLIGHT; TOTAL CELLS COUNTED 100; TOXIC GRANULATION 1+
[2020-03-22] MEDS: ESCITALOPRAM OXALATE 10 MG TABLET PO SCH (10:12)
[2020-03-22] MEDS: DOCUSATE SODIUM 100 MG CAPSULE PO SCH (10:12)
[2020-03-22] MEDS: ASPIRIN 81 MG TABLET, ENT COATED PO SCH (10:12)
[2020-03-22] MEDS: FLUTICASONE NASAL SPRAY 50 MCG/SPRY 120 SPRAY/16 GM NASL SCH (10:12)
[2020-03-22] MEDS: LORAZEPAM INJ 2 MG/1 ML VIAL IV PRN ×2 (10:17→21:49)
--- NOTE | 2020-03-22 11:26 | PDOC PROGRESS REPORT ---
Subjective Progress Note for:: 03/22/20 Subjective:: Once again the patient's and her sister are sitting at the bedside. They did asked me to call their daughter for an update which I will later today. The patient is still completely BiPAP dependent. His tidal volumes vary from 400 - 600. He remains on FiO2 of 40%. Nursing reports that even to take his mask off to give him oral medications will lead to significant desaturation. Reason For Visit: ACUTE CONGESTIVE HEART FAILURE,ACUTE PULMONARY Physical Exam Vital Signs: Temp Pulse Resp BP Pulse Ox 98.1 F 72 17 98/55 L 99 03/22/20 08:30 03/22/20 08:01 03/22/20 08:01 03/22/20 08:01 03/22/20 08:01 Intake & Output 03/21/20 03/22/20 03/23/20 06:59 06:59 06:59 Intake Total 670 1000 Output Total 725 650 Balance -55 350 Weight 94.3 kg 97.9 kg General appearance: PRESENT: well-developed, other - Sleeping on BiPAP. Still unable to take the patient off of BiPAP for more than several minutes. Head exam: PRESENT: atraumatic, normocephalic Mouth exam: PRESENT: other - BiPAP mask in place Respiratory exam: PRESENT: clear to auscultation jabier, prolonged expiratory phas, symmetrical, tachypnea, other - Very shallow inspiratory phase. ABSENT: rales, rhonchi, wheezes Cardiovascular exam: PRESENT: RRR, +S1, +S2. ABSENT: bradycardia, diastolic murmur, irregular rhythm, systolic murmur, tachycardia GI/Abdominal exam: PRESENT: hypoactive bowel sounds, soft. ABSENT: distended, tenderness Rectal exam: PRESENT: deferred Gentrourinary exam: PRESENT: indwelling catheter Extremities exam: ABSENT: pedal edema Musculoskeletal exam: PRESENT: normal inspection. ABSENT: ambulatory - Unable to come off of BiPAP, deformity, dislocation Neurological exam: ABSENT: alert, awake Results Laboratory Results: 03/22/20 04:20 03/22/20 04:20 03/21/20 03/22/20 03/22/20 18:26 04:20 04:20 WBC 10.5 RBC 3.51 L Hgb 12.1 L Hct 36.9 L MCV 105 H MCH 34.6 H MCHC 32.9 RDW 14.1 H Plt Count 169 Seg Neutrophils % Not Reportable Sodium 154.0 H 152.2 H Potassium 3.9 4.1 Chloride 111 H 111 H Carbon Dioxide 41 H* 38 H Anion Gap 2 L 3 L BUN 34 H 33 H Creatinine 0.79 0.66 Est GFR ( Amer) > 60 > 60 Glucose 120 H 141 H Calcium 8.5 8.5 Magnesium 2.6 H 2.8 H Total Bilirubin 1.1 AST 32 Alkaline Phosphatase 143 H Total Protein 6.0 L Albumin 2.8 L 03/14/20 03/14/20 03/14/20 18:56 18:56 18:56 Creatine Kinase 30 L CK-MB (CK-2) 1.25 Troponin I 0.035 NT-Pro-B Natriuret Pep 1580 H 03/14/20 03/14/20 03/15/20 22:45 23:56 05:27 Creatine Kinase 25 L CK-MB (CK-2) Troponin I Cancelled 0.032 NT-Pro-B Natriuret Pep 03/15/20 03/15/20 03/15/20 05:27 10:59 10:59 Creatine Kinase 23 L CK-MB (CK-2) 0.94 0.75 Troponin I 0.031 0.024 NT-Pro-B Natriuret Pep 03/15/20 03/15/20 03/18/20 16:42 16:42 12:56 Creatine Kinase 25 L CK-MB (CK-2) 0.59 Troponin I 0.021 0.021 NT-Pro-B Natriuret Pep Impressions: Chest/Abdomen CTA 03/14/20 20:18 IMPRESSION: Artifact from the patient's arms. Imaging is degraded by patient motion, with resultant artifact. The best possible images were obtained. No central pulmonary embolus. Progressive interstitial and airspace disease, bilaterally. . Venous Doppler Study 03/14/20 20:18 IMPRESSION: No DVT in the right lower extremity. Chest X-Ray 03/18/20 00:00 IMPRESSION: Slight improvement. Assessment and Plan - Diagnosis (1) Acute on chronic respiratory failure with hypoxia and hypercapnia Is this a current diagnosis for this admission?: Yes (2) Chronic obstructive pulmonary disease Qualifiers: COPD type: unspecified COPD Qualified Code(s): J44.9 - Chronic obstructive pulmonary disease, unspecified Is this a current diagnosis for this admission?: Yes (3) Acute diastolic heart failure Is this a current diagnosis for this admission?: Yes (4) HTN (hypertension) Qualifiers: Hypertension type: essential hypertension Qualified Code(s): I10 - Essential (primary) hypertension Is this a current diagnosis for this admission?: Yes (5) DNI (do not intubate) Is this a current diagnosis for this admission?: Yes (6) Atrial fibrillation with rapid ventricular response Is this a current diagnosis for this admission?: Yes (7) Hypernatremia Is this a current diagnosis for this admission?: Yes - Plan Summary Summary: Consider requesting ethics committee review tomorrow. Both daughters had acknowledged their mothers forgetfulness, inability to make decisions, and dementia, however, they continue to defer to her for all decision making. Daughters indicate that they are and is arriving this evening to talk with their mother. 03/21/2020 Patient is still struggling. Part of the tachypnea is anxiety. If you can get him to focus his breathing does slow. He still has CO2 retention. I reviewed cardiology note. They do not believe he has acute decompensated heart failure. He does have chronic grade 1/4 diastolic dysfunction with a normal ejection fraction. Because of the low urine output I am going to increase his fluids to 125 mL an hour. I will hold his diuretics for the time being. I explained to the patient's that we are trying to help the lungs by getting rid of carbon dioxide. Explained to the patient that he should try to relax and let the BiPAP machine do most of the work. There are some medications for anxiety and discomfort available. 03/21/2020 6:12 PM I was called by the nurse to let me know that the patient has gone into atrial fibrillation with rapid ventricular response. I have administered intravenous diltiazem and started oral dosing. Will reassess the patient. 03/22/2020 COPD-the patient is still unable to come off of BiPAP for more than a few minutes without desaturating. We will try FiO2 of 35% as he was saturating in the mid to high 90s earlier on 40%. Lungs are clear to auscultation but there is a shortened inspiratory phase with prolonged expiratory phase. Hypernatremia-I am going to change his fluids to half-normal saline to correct the hypernatremia. This should help with the elevated BUN as well. Hypermagnesemia. Magnesium still elevated at 2.8. Of note his platelet count has been dropping. I have ordered another CBC for tomorrow to check for thrombocytopenia. Hypertension-blood pressure is quite variable. I think that depending on his state of agitation/excitation his systolic pressure will tend to vary. We will continue to monitor on telemetry and with scheduled vital signs. I spoke to the patient's and [id number] at the bedside. I explained that we really have not been making much progress. I expressed my concerns regarding his survivability of this episode. I again stated that every day I will assess the patient and see if we are making any progress. If we do not make any progress over the next several days then I believe we will need to discuss comfort measures in house. I did have a chance to speak to the patient's daughter Ness. After approximately 25-minute conversation she understands the gravity of the situation. She asked if there was any chance of recovery and I told her I cannot say never however in my opinion I do not think he is going to get out of the hospital. - Time Time Spent with patient: 25-34 minutes Medications reviewed and adjusted accordingly: Yes Anticipated Discharge Disposition: Comfort measures Anticipated Discharge Timeframe: within 72 hours
--- NOTE | 2020-03-22 12:00 | PDOC PROGRESS REPORT ---
Subjective Progress Note for:: 03/22/20 Subjective:: Patient appears to be listless and exhausted. BiPAP mask is still on. He is not very responsive. Reason For Visit: ACUTE CONGESTIVE HEART FAILURE,ACUTE PULMONARY Physical Exam Vital Signs: Temp Pulse Resp BP Pulse Ox 98.1 F 72 17 98/55 L 99 03/22/20 08:30 03/22/20 08:01 03/22/20 08:01 03/22/20 08:01 03/22/20 08:01 Intake & Output 03/21/20 03/22/20 03/23/20 06:59 06:59 06:59 Intake Total 670 1000 Output Total 725 650 Balance -55 350 Weight 94.3 kg 97.9 kg General appearance: PRESENT: well-developed, well-nourished, other - Patient appears exhausted and lethargic Head exam: PRESENT: atraumatic, normocephalic Eye exam: PRESENT: conjunctiva pale Mouth exam: PRESENT: dry mucosa Respiratory exam: PRESENT: accessory muscle use, symmetrical, other - Labored breath sounds. BiPAP mask is on Cardiovascular exam: PRESENT: +S1, +S2 Rectal exam: PRESENT: deferred Neurological exam: PRESENT: altered Skin exam: PRESENT: dry, intact Results Laboratory Results: 03/22/20 04:20 03/22/20 04:20 03/21/20 03/22/20 03/22/20 18:26 04:20 04:20 WBC 10.5 RBC 3.51 L Hgb 12.1 L Hct 36.9 L MCV 105 H MCH 34.6 H MCHC 32.9 RDW 14.1 H Plt Count 169 Seg Neutrophils % Not Reportable Sodium 154.0 H 152.2 H Potassium 3.9 4.1 Chloride 111 H 111 H Carbon Dioxide 41 H* 38 H Anion Gap 2 L 3 L BUN 34 H 33 H Creatinine 0.79 0.66 Est GFR ( Amer) > 60 > 60 Glucose 120 H 141 H Calcium 8.5 8.5 Magnesium 2.6 H 2.8 H Total Bilirubin 1.1 AST 32 Alkaline Phosphatase 143 H Total Protein 6.0 L Albumin 2.8 L 03/14/20 03/14/20 03/14/20 18:56 18:56 18:56 Creatine Kinase 30 L CK-MB (CK-2) 1.25 Troponin I 0.035 NT-Pro-B Natriuret Pep 1580 H 03/14/20 03/14/20 03/15/20 22:45 23:56 05:27 Creatine Kinase 25 L CK-MB (CK-2) Troponin I Cancelled 0.032 NT-Pro-B Natriuret Pep 03/15/20 03/15/20 03/15/20 05:27 10:59 10:59 Creatine Kinase 23 L CK-MB (CK-2) 0.94 0.75 Troponin I 0.031 0.024 NT-Pro-B Natriuret Pep 03/15/20 03/15/20 03/18/20 16:42 16:42 12:56 Creatine Kinase 25 L CK-MB (CK-2) 0.59 Troponin I 0.021 0.021 NT-Pro-B Natriuret Pep Impressions: Chest/Abdomen CTA 03/14/20 20:18 IMPRESSION: Artifact from the patient's arms. Imaging is degraded by patient motion, with resultant artifact. The best possible images were obtained. No central pulmonary embolus. Progressive interstitial and airspace disease, bilaterally. . Venous Doppler Study 03/14/20 20:18 IMPRESSION: No DVT in the right lower extremity. Chest X-Ray 03/18/20 00:00 IMPRESSION: Slight improvement. Assessment & Plan - Diagnosis (1) Acute and chronic respiratory failure with hypercapnia Is this a current diagnosis for this admission?: Yes Plan: Hypoxic respiratory failure probably on account of COPD Excessive work of breathing noted Supportive care and noninvasive ventilation to be continued. Difficulty establish CODE STATUS and discussion with the I suspect he is going to get tired. CODE STATUS has been addressed to some measure and is a DO NOT INTUBATE now. This is appropriate (2) Acute congestive heart failure Qualifiers: Heart failure type: unspecified Qualified Code(s): I50.9 - Heart failure, unspecified Is this a current diagnosis for this admission?: Yes Plan: Current clinical picture does not support decompensated congestive heart failure. He has diminished urine output which may suggest that he is intravascularly volume depleted. (3) Coronary artery disease Qualifiers: Coronary Disease-Associated Artery/Lesion type: [place] artery [place] vs. transplanted heart: [place] heart Associated angina: without angina Qualified Code(s): I25.10 - Atherosclerotic heart disease of [place] coronary artery without angina pectoris Is this a current diagnosis for this admission?: Yes Plan: No ischemic symptoms. (4) COPD exacerbation Is this a current diagnosis for this admission?: Yes Plan: CAP COPD exacerbation Continue bronchodilator therapy supportive care
[2020-03-22] MEDS: HYDRALAZINE HCL INJ/PF 20 MG/1 ML SDV IV PRN (18:02)
[2020-03-22] MEDS: ATORVASTATIN CALCIUM 40 MG TABLET PO SCH (21:49)
[2020-03-22] MEDS: 1/2 NORMAL SALINE 1,000 ML IV PRN (21:53)
[2020-03-23] MEDS: IPRATROPIUM BROMIDE 0.02% NEB 0.5 MG/2.5 ML AMPUL NEB SCH ×4 (01:48→20:40)
[2020-03-23] MEDS: HYDRALAZINE HCL INJ/PF 20 MG/1 ML SDV IV PRN (01:48)
[2020-03-23] MEDS: LEVALBUTEROL HCL NEB 1.25 MG/3 ML AMPUL NEB SCH ×4 (01:48→20:40)
[2020-03-23] MEDS: DILTIAZEM HCL 60 MG TABLET PO SCH ×5 (02:40→23:26)
[2020-03-23] MEDS: HEPARIN SOD (PORCINE) 5,000 UNIT/ML 1 ML VIAL SUBCUT SCH ×3 (05:20→21:22)
[2020-03-23] MEDS: METHYLPREDNISOLONE INJ 40 MG/1 ML SDV IV SCH ×3 (05:20→21:26)
[2020-03-23 05:45] LABS: HEMATOCRIT 36.3 % (37.9-51.0); HEMOGLOBIN 12.1 g/dL (13.5-17.0); MEAN CORPUSCULAR HEMOGLOBIN 34.6 pg (27.0-33.4); MEAN CORPUSCULAR HGB CONC 33.4 g/dL (32.0-36.0); MEAN CORPUSCULAR VOLUME 103 fl (80-97); PLATELET COUNT 139 10^3/uL (150-450); RED BLOOD COUNT 3.51 10^6/uL (4.35-5.55); RED CELL DISTRIBUTION WIDTH 13.9 % (11.5-14.0); WHITE BLOOD COUNT 8.9 10^3/uL (4.0-10.5)
[2020-03-23] MEDS: 1/2 NORMAL SALINE 1,000 ML IV PRN ×3 (05:58→21:26)
[2020-03-23 06:08] LABS: BLOOD UREA NITROGEN 30 mg/dL (7-20); CALCIUM 8.1 mg/dL (8.4-10.2); CARBON DIOXIDE 34 mmol/L (22-30); GLUCOSE 144 mg/dL (75-110); POTASSIUM 3.9 mmol/L (3.6-5.0)
[2020-03-23 06:15] LABS: CHLORIDE 111 mmol/L (98-107)
[2020-03-23 06:21] LABS: ANION GAP 4 (5-19)
[2020-03-23 06:30] LABS: ABSOLUTE LYMPHOCYTES# (MANUAL) 0.2 10^3/uL (0.5-4.7); ABSOLUTE MONOCYTES # (MANUAL) 0.8 10^3/uL (0.1-1.4); BASOPHILS % (MANUAL) 0 % (0-2); EOSINOPHILS % (MANUAL) 0 % (0-6); LYMPHOCYTES % (MANUAL) 2 % (13-45); MONOCYTES % (MANUAL) 9 % (3-13); SEGMENTED NEUTROPHILS % (MAN) 89 % (42-78); TOTAL CELLS COUNTED 100
[2020-03-23 06:31] LABS: BURR CELLS SLIGHT; TOXIC GRANULATION SLIGHT
[2020-03-23 06:32] LABS: PLATELET COMMENT DECREASED; SCHISTOCYTES SLIGHT; TEAR DROP CELLS SLIGHT
[2020-03-23 07:09] LABS: ARTERIAL BLOOD FIO2 35%; ARTERIAL BLOOD H2CO3 1.52 mmol/L (1.05-1.35); ARTERIAL BLOOD HCO3 33.5 mmol/L (20-24); ARTERIAL BLOOD PCO2 50.5 mmHg (35-45); ARTERIAL BLOOD PH 7.44 (7.35-7.45); ARTERIAL BLOOD PO2 72.9 mmHg (80-100); ARTERIAL BLOOD TOTAL CO2 35.1 mmol/L (23-27)
[2020-03-23] MEDS: DOCUSATE SODIUM 100 MG CAPSULE PO SCH (10:18)
[2020-03-23] MEDS: FLUTICASONE NASAL SPRAY 50 MCG/SPRY 120 SPRAY/16 GM NASL SCH (10:19)
[2020-03-23] MEDS: ESCITALOPRAM OXALATE 10 MG TABLET PO SCH (10:19)
[2020-03-23] MEDS: ASPIRIN 81 MG TABLET, ENT COATED PO SCH (10:19)
--- NOTE | 2020-03-23 11:33 | PDOC PROGRESS REPORT ---
Subjective Progress Note for:: 03/23/20 Subjective:: Patient is very restless. Respiratory rate varies widely. Sometimes in the 50s and sometimes in the 20s. Noticeably restless in bed more so than yesterday. Facial flushing also noted. Reason For Visit: ACUTE CONGESTIVE HEART FAILURE,ACUTE PULMONARY Physical Exam Vital Signs: Temp Pulse Resp BP Pulse Ox 97.7 F 78 29 H 138/68 H 99 03/23/20 08:44 03/23/20 08:40 03/23/20 08:40 03/23/20 08:40 03/23/20 08:40 Intake & Output 03/22/20 03/23/20 03/24/20 06:59 06:59 06:59 Intake Total 1000 2852 Output Total 650 1300 Balance 350 1552 Weight 97.9 kg 99.5 kg General appearance: PRESENT: other - Moderate to severe distress. ABSENT: cooperative - Unable to participate during the encounter Head exam: PRESENT: atraumatic, normocephalic, other - BiPAP mask in place Eye exam: PRESENT: other - BiPAP mask remains in place Respiratory exam: PRESENT: clear to auscultation jabier, prolonged expiratory phas, tachypnea, other - Extremely limited inspiratory phase. ABSENT: rales, rhonchi, wheezes Cardiovascular exam: PRESENT: RRR, +S1, +S2 GI/Abdominal exam: PRESENT: hypoactive bowel sounds, soft. ABSENT: distended, tenderness Rectal exam: PRESENT: deferred Gentrourinary exam: PRESENT: indwelling catheter Extremities exam: ABSENT: pedal edema Musculoskeletal exam: PRESENT: normal inspection. ABSENT: ambulatory, deformity, dislocation Neurological exam: PRESENT: other - Unable to participate in the encounter. Remains on BiPAP. Extremely tachypneic. Psychiatric exam: PRESENT: agitated - The patient is constantly moving in bed. Based on his facial grimacing it appears to be in discomfort. Results Laboratory Results: 03/23/20 05:16 03/23/20 05:16 03/23/20 03/23/20 03/23/20 05:16 05:16 06:40 WBC 8.9 RBC 3.51 L Hgb 12.1 L Hct 36.3 L MCV 103 H MCH 34.6 H MCHC 33.4 RDW 13.9 Plt Count 139 L Seg Neutrophils % Not Reportable Carbonic Acid 1.52 H HCO3/H2CO3 Ratio 22:1 ABG pH 7.44 ABG pCO2 50.5 H ABG pO2 72.9 L ABG HCO3 33.5 H ABG O2 Saturation 95.0 ABG Base Excess 8.0 FiO2 35% Sodium 149.3 H Potassium 3.9 Chloride 111 H Carbon Dioxide 34 H Anion Gap 4 L BUN 30 H Creatinine 0.58 Est GFR ( Amer) > 60 Glucose 144 H Calcium 8.1 L Magnesium 2.5 H 03/14/20 03/14/20 03/14/20 18:56 18:56 18:56 Creatine Kinase 30 L CK-MB (CK-2) 1.25 Troponin I 0.035 NT-Pro-B Natriuret Pep 1580 H 03/14/20 03/14/20 03/15/20 22:45 23:56 05:27 Creatine Kinase 25 L CK-MB (CK-2) Troponin I Cancelled 0.032 NT-Pro-B Natriuret Pep 03/15/20 03/15/20 03/15/20 05:27 10:59 10:59 Creatine Kinase 23 L CK-MB (CK-2) 0.94 0.75 Troponin I 0.031 0.024 NT-Pro-B Natriuret Pep 03/15/20 03/15/20 03/18/20 16:42 16:42 12:56 Creatine Kinase 25 L CK-MB (CK-2) 0.59 Troponin I 0.021 0.021 NT-Pro-B Natriuret Pep Impressions: Chest/Abdomen CTA 03/14/20 20:18 IMPRESSION: Artifact from the patient's arms. Imaging is degraded by patient motion, with resultant artifact. The best possible images were obtained. No central pulmonary embolus. Progressive interstitial and airspace disease, bilaterally. . Venous Doppler Study 03/14/20 20:18 IMPRESSION: No DVT in the right lower extremity. Chest X-Ray 03/18/20 00:00 IMPRESSION: Slight improvement. Assessment and Plan - Diagnosis (1) Acute on chronic respiratory failure with hypoxia and hypercapnia Is this a current diagnosis for this admission?: Yes (2) Chronic obstructive pulmonary disease Qualifiers: COPD type: unspecified COPD Qualified Code(s): J44.9 - Chronic obstructive pulmonary disease, unspecified Is this a current diagnosis for this admission?: Yes (3) Acute diastolic heart failure Is this a current diagnosis for this admission?: Yes (4) HTN (hypertension) Qualifiers: Hypertension type: essential hypertension Qualified Code(s): I10 - Essential (primary) hypertension Is this a current diagnosis for this admission?: Yes (5) DNI (do not intubate) Is this a current diagnosis for this admission?: Yes (6) Atrial fibrillation with rapid ventricular response Is this a current diagnosis for this admission?: Yes (7) Hypernatremia Is this a current diagnosis for this admission?: Yes - Plan Summary Summary: Consider requesting ethics committee review tomorrow. Both daughters had acknowledged their mothers forgetfulness, inability to make decisions, and d ementia, however, they continue to defer to her for all decision making. Daughters indicate that they are and is arriving this evening to talk with their mother. 03/21/2020 Patient is still struggling. Part of the tachypnea is anxiety. If you can get him to focus his breathing does slow. He still has CO2 retention. I reviewed cardiology note. They do not believe he has acute decompensated hea rt failure. He does have chronic grade 1/4 diastolic dysfunction with a normal ejection fraction. Because of the low urine output I am going to increase his fluids to 125 mL an hour. I will hold his diuretics for the time being. I explained to the patient's that we are trying to help the lungs by getting rid of carbon dioxide. Explained to the patient that he should try to relax and let the BiPAP machine do most of the work. There are some medications for anxiety and discomfort available. 03/21/2020 6:12 PM I was called by the nurse to let me know that the patient has gone into atrial fibrillation with rapid ventricular response. I have administered intravenous diltiazem and started oral dosing. Will reassess the patient. 03/22/2020 COPD-the patient is still unable to come off of BiPAP for more than a few minutes without desaturating. We will try FiO2 of 35% as he was saturating in the mid to high 90s earlier on 40%. Lungs are clear to auscultation but there is a shortened inspiratory phase with prolonged expiratory phase. Hypernatremia-I am going to change his fluids to half-normal saline to correct the hypernatremia. This should help with the elevated BUN as well. Hypermagnesemia. Magnesium still elevated at 2.8. Of note his platelet count has been dropping. I have ordered another CBC for tomorrow to check for thrombocytopenia. Hypertension-blood pressure is quite variable. I think that depending on his state of agitation/excitation his systolic pressure will tend to vary. We will continue to monitor on telemetry and with scheduled vital signs. I spoke to the patient's and [id number] at the bedside. I explained that we really have not been making much progress. I expressed my concerns regarding his survivability of this episode. I again stated that every day I will assess the patient and see if we are making any progress. If we do not make any progress over the next several days then I believe we will need to discuss comfort measures in house. I did have a chance to speak to the patient's daughter Ness. After approximately 25-minute conversation she understands the gravity of the situation. She asked if there was any chance of recovery and I told her I cannot say never however in my opinion I do not think he is going to get out of the hospital. 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 I believe his is beginning to understand his grave prognosis. Hypernatremia-serum sodium is down to 149.3-change to half-normal saline. BUN is slightly improved as well. Magnesium is still high at 2.5. We will continue half-normal saline and monitor electrolytes. I did inform the that we would reassess tomorrow but if he is not improving at all then we need to consider comfort measures. - Time Time Spent with patient: 25-34 minutes Medications reviewed and adjusted accordingly: Yes Anticipated Discharge Disposition: Hospice versus comfort measures Anticipated Discharge Timeframe: within 72 hours
[2020-03-23] MEDS: MORPHINE SULFATE 10 MG/ML INJ IV PRN (12:17)
--- NOTE | 2020-03-23 14:00 | PDOC PROGRESS REPORT ---
Subjective Progress Note for:: 03/23/20 Subjective:: Patient continues to be in respiratory distress. Noninvasive mask present. Family at bedside. The decision made not to intubate the patient. Reason For Visit: ACUTE CONGESTIVE HEART FAILURE,ACUTE PULMONARY Physical Exam Vital Signs: Temp Pulse Resp BP Pulse Ox 97.7 F 78 11 L 138/68 H 96 03/23/20 08:44 03/23/20 08:40 03/23/20 12:08 03/23/20 08:40 03/23/20 12:08 Intake & Output 03/22/20 03/23/20 03/24/20 06:59 06:59 06:59 Intake Total 1000 2852 Output Total 650 1300 Balance 350 1552 Weight 97.9 kg 99.5 kg General appearance: PRESENT: cooperative, mild distress, well-developed, well- nourished Head exam: PRESENT: atraumatic, normocephalic Eye exam: PRESENT: EOMI, other Respiratory exam: PRESENT: decreased breath sounds, prolonged expiratory phas, symmetrical, other - Coarse respiratory sounds bilaterally. Diminished air entry throughout. And expiratory wheezing. Cardiovascular exam: PRESENT: RRR, +S1, +S2 GI/Abdominal exam: PRESENT: soft Rectal exam: PRESENT: deferred Neurological exam: PRESENT: altered Skin exam: PRESENT: dry Results Laboratory Results: 03/23/20 05:16 03/23/20 05:16 03/23/20 03/23/20 03/23/20 05:16 05:16 06:40 WBC 8.9 RBC 3.51 L Hgb 12.1 L Hct 36.3 L MCV 103 H MCH 34.6 H MCHC 33.4 RDW 13.9 Plt Count 139 L Seg Neutrophils % Not Reportable Carbonic Acid 1.52 H HCO3/H2CO3 Ratio 22:1 ABG pH 7.44 ABG pCO2 50.5 H ABG pO2 72.9 L ABG HCO3 33.5 H ABG O2 Saturation 95.0 ABG Base Excess 8.0 FiO2 35% Sodium 149.3 H Potassium 3.9 Chloride 111 H Carbon Dioxide 34 H Anion Gap 4 L BUN 30 H Creatinine 0.58 Est GFR ( Amer) > 60 Glucose 144 H Calcium 8.1 L Magnesium 2.5 H 03/14/20 03/14/20 03/14/20 18:56 18:56 18:56 Creatine Kinase 30 L CK-MB (CK-2) 1.25 Troponin I 0.035 NT-Pro-B Natriuret Pep 1580 H 03/14/20 03/14/20 03/15/20 22:45 23:56 05:27 Creatine Kinase 25 L CK-MB (CK-2) Troponin I Cancelled 0.032 NT-Pro-B Natriuret Pep 03/15/20 03/15/20 03/15/20 05:27 10:59 10:59 Creatine Kinase 23 L CK-MB (CK-2) 0.94 0.75 Troponin I 0.031 0.024 NT-Pro-B Natriuret Pep 03/15/20 03/15/20 03/18/20 16:42 16:42 12:56 Creatine Kinase 25 L CK-MB (CK-2) 0.59 Troponin I 0.021 0.021 NT-Pro-B Natriuret Pep Impressions: Chest/Abdomen CTA 03/14/20 20:18 IMPRESSION: Artifact from the patient's arms. Imaging is degraded by patient motion, with resultant artifact. The best possible images were obtained. No central pulmonary embolus. Progressive interstitial and airspace disease, bilaterally. . Venous Doppler Study 03/14/20 20:18 IMPRESSION: No DVT in the right lower extremity. Chest X-Ray 03/18/20 00:00 IMPRESSION: Slight improvement. Assessment & Plan - Diagnosis (1) Acute and chronic respiratory failure with hypercapnia Is this a current diagnosis for this admission?: Yes Plan: Hypoxic respiratory failure probably on account of COPD Excessive work of breathing noted Supportive care and noninvasive ventilation to be continued. Difficulty establish CODE STATUS and discussion with the I suspect he is going to get tired. CODE STATUS has been addressed to some measure and is a DO NOT INTUBATE now. This is appropriate (2) Acute congestive heart failure Qualifiers: Heart failure type: unspecified Qualified Code(s): I50.9 - Heart failure, unspecified Is this a current diagnosis for this admission?: Yes Plan: Current clinical picture does not support decompensated congestive heart failure. He has diminished urine output which may suggest that he is intravascularly volume depleted. (3) Coronary artery disease Qualifiers: Coronary Disease-Associated Artery/Lesion type: [place] artery [place] vs. transplanted heart: [place] heart Associated angina: without angina Qualified Code(s): I25.10 - Atherosclerotic heart disease of [place] coronary artery w ithout angina pectoris Is this a current diagnosis for this admission?: Yes Plan: No ischemic symptoms. (4) COPD exacerbation Is this a current diagnosis for this admission?: Yes Plan: CAP COPD exacerbation Continue bronchodilator therapy supportive care - Notes Notes: The patient's spouse and another family member were present in the room. I had a brief discussion with them during which I discussed that his respiratory status is continued to show no improvement. Goals of care have to be defined for him. He is probably not comfortable. His clinical trajectory is quite poor given age and tenuous respiratory status The decision not to intubate is quite reasonable. I do not believe the patient is comfortable and could benefit from comfort measures. This was discussed with the patient's spouse. I affirmed her believe that the patient is not getting better
--- NOTE | 2020-03-23 17:29 | ADVANCED CARE ---
- Diagnosis (1) Acute on chronic respiratory failure with hypoxia and hypercapnia Diagnosis Current: Yes (2) Chronic obstructive pulmonary disease Diagnosis Current: Yes (3) Acute diastolic heart failure Diagnosis Current: Yes (4) HTN (hypertension) Diagnosis Current: Yes (5) DNI (do not intubate) Diagnosis Current: Yes (6) Atrial fibrillation with rapid ventricular response Diagnosis Current: Yes (7) Hypernatremia Diagnosis Current: Yes Attendance: At the bedside yesterday was the patient's and her sister. Today it is the patient's and 1 of his daughters. Resuscitation Status: Do Not Intubate Discussion: Mr. Chaparro is an 85-year-old gentleman with end-stage COPD. He has been BiPAP dependent for the last week. Any attempts at removing the BiPAP, even for 5 to 6 minutes, dropped the patient's pulse oximetry to less than 70%. Respiratory rates vary from 30 to 60 breaths /min. FiO2 is down to 35% but he still exhibits market desaturation. The patient's CODE STATUS is DO NOT INTUBATE. The family reports that the patient's has some dementia. They have not pushed very hard to encourage full DNR or even comfort measures. Over the last 3 days I have seen the patient and have discussed with the patient's the very poor prognosis and reasons for my concern. I have discussed the poor prognosis with the patient. I reported to the that I did not think he would make it out of the hospital. He has not been off the BiPAP mask for more than 10 minutes in the last several days. Today was the first time that there was an acknowledgment of the severity of his illness. She did ask about a visit on Friday and commented "if he is still here". I did speak to the patient's daughter on the phone yesterday for an extensive window. I believe the family is in agreement that the patient would benefit from comfort measures as he is very tachypneic and at times very agitated. The patient's is the one who is making decisions and at this point has not opted to change the treatment plan. Care Planning Goals: I am trying to get the patient's to appreciate the grave state that he is in. The fact that he is not going to recover from this and I am encouraging her to consider making him comfortable as opposed to the discomfort and difficulty breathing that he is exhibiting. Document(s) Completed: None Time Spent: 50 minutes over the last 3 days
[2020-03-23] MEDS: ATORVASTATIN CALCIUM 40 MG TABLET PO SCH (21:22)
[2020-03-24] MEDS: IPRATROPIUM BROMIDE 0.02% NEB 0.5 MG/2.5 ML AMPUL NEB SCH ×2 (01:57→08:18)
[2020-03-24] MEDS: LEVALBUTEROL HCL NEB 1.25 MG/3 ML AMPUL NEB SCH ×2 (01:57→08:18)
[2020-03-24] MEDS: HEPARIN SOD (PORCINE) 5,000 UNIT/ML 1 ML VIAL SUBCUT SCH (05:05)
[2020-03-24] MEDS: DILTIAZEM HCL 60 MG TABLET PO SCH (05:05)
[2020-03-24] MEDS: METHYLPREDNISOLONE INJ 40 MG/1 ML SDV IV SCH (05:09)
[2020-03-24] MEDS: 1/2 NORMAL SALINE 1,000 ML IV PRN (05:10)
[2020-03-24 08:39] VITALS: BP 152/88
[2020-03-24] MEDS: MORPHINE SULFATE 10 MG/ML INJ IV PRN ×7 (09:28→18:52)
[2020-03-24] MEDS: DOCUSATE SODIUM 100 MG CAPSULE PO SCH (09:51)
[2020-03-24] MEDS: ASPIRIN 81 MG TABLET, ENT COATED PO SCH (09:52)
[2020-03-24] MEDS: FLUTICASONE NASAL SPRAY 50 MCG/SPRY 120 SPRAY/16 GM NASL SCH (09:52)
[2020-03-24] MEDS: ESCITALOPRAM OXALATE 10 MG TABLET PO SCH (09:53)
[2020-03-24] MEDS: LORAZEPAM INJ 2 MG/1 ML VIAL IV PRN ×5 (10:25→18:52)
--- NOTE | 2020-03-24 11:41 | PDOC PROGRESS REPORT ---
Subjective Progress Note for:: 03/24/20 Subjective:: The patient had a rough evening. He was more agitated. He experienced wide fluctuations in respiratory rate and is now bradycardic. A trial yesterday and then again today revealed that the patient cannot tolerate more than 10 minutes off of BiPAP without oxygen saturations plummeting below 80%. Even with 4 L nasal cannula he dropped into the 70s. Reason For Visit: ACUTE CONGESTIVE HEART FAILURE,ACUTE PULMONARY End-stage COPD Physical Exam Vital Signs: Temp Pulse Resp BP Pulse Ox 97.3 F 61 34 H 152/88 H 97 03/24/20 08:32 03/24/20 08:32 03/24/20 08:32 03/24/20 08:32 03/24/20 08:32 Intake & Output 03/23/20 03/24/20 03/25/20 06:59 06:59 06:59 Intake Total 2852 3115 Output Total 1300 650 Balance 1552 2465 Weight 99.5 kg 102.1 kg General appearance: PRESENT: other - Moderate to severe distress Head exam: PRESENT: atraumatic, normocephalic, other - Marked facial flushing Respiratory exam: PRESENT: clear to auscultation jabier, tachypnea - Varies from 20s up to 50s. ABSENT: rales, rhonchi, wheezes Cardiovascular exam: PRESENT: bradycardia, +S1, +S2 Neurological exam: ABSENT: alert, awake Psychiatric exam: PRESENT: agitated - Was agitated this morning prior to adminis tration of medication. At this time he is still trying to pull the mask off. Results Laboratory Results: 03/23/20 05:16 03/23/20 05:16 03/14/20 03/14/20 03/14/20 18:56 18:56 18:56 Creatine Kinase 30 L CK-MB (CK-2) 1.25 Troponin I 0.035 NT-Pro-B Natriuret Pep 1580 H 03/14/20 03/14/20 03/15/20 22:45 23:56 05:27 Creatine Kinase 25 L CK-MB (CK-2) Troponin I Cancelled 0.032 NT-Pro-B Natriuret Pep 03/15/20 03/15/20 03/15/20 05:27 10:59 10:59 Creatine Kinase 23 L CK-MB (CK-2) 0.94 0.75 Troponin I 0.031 0.024 NT-Pro-B Natriuret Pep 03/15/20 03/15/20 03/18/20 16:42 16:42 12:56 Creatine Kinase 25 L CK-MB (CK-2) 0.59 Troponin I 0.021 0.021 NT-Pro-B Natriuret Pep Impressions: Chest/Abdomen CTA 03/14/20 20:18 IMPRESSION: Artifact from the patient's arms. Imaging is degraded by patient motion, with resultant artifact. The best possible images were obtained. No central pulmonary embolus. Progressive interstitial and airspace disease, bilaterally. . Venous Doppler Study 03/14/20 20:18 IMPRESSION: No DVT in the right lower extremity. Chest X-Ray 03/18/20 00:00 IMPRESSION: Slight improvement. Assessment and Plan - Diagnosis (1) Acute on chronic respiratory failure with hypoxia and hypercapnia Is this a current diagnosis for this admission?: Yes (2) Chronic obstructive pulmonary disease Qualifiers: COPD type: unspecified COPD Qualified Code(s): J44.9 - Chronic obstructive pulmonary disease, unspecified Is this a current diagnosis for this admission?: Yes (3) Acute diastolic heart failure Is this a current diagnosis for this admission?: Yes (4) HTN (hypertension) Qualifiers: Hypertension type: essential hypertension Qualified Code(s): I10 - Essential (primary) hypertension Is this a current diagnosis for this admission?: Yes (5) DNI (do not intubate) Is this a current diagnosis for this admission?: Yes (6) Atrial fibrillation with rapid ventricular response Is this a current diagnosis for this admission?: Yes (7) Hypernatremia Is this a current diagnosis for this admission?: Yes - Plan Summary Summary: Consider requesting ethics committee review tomorrow. Both daughters had acknowledged their mothers forgetfulness, inability to make decisions, and dementia, however, they continue to defer to her for all decision making. Daugh ters indicate that they are and is arriving this evening to talk with their mother. 03/21/2020 Patient is still struggling. Part of the tachypnea is anxiety. If you can get him to focus his breathing does slow. He still has CO2 retention. I reviewed cardiology note. They do not believe he has acute decompensated heart failure. He does have chronic grade 1/4 diastolic dysfunction with a normal ejection fraction. Because of the low urine output I am going to increase his fluids to 125 mL an hour. I will hold his diuretics for the time being. I explained to the patient's that we are trying to help the lungs by getting rid of carbon dioxide. Explained to the patient that he should try to relax and let the BiPAP machine do most of the work. There are some medications for anxiety and discomfort available. 03/21/2020 6:12 PM I was called by the nurse to let me know that the patient has gone into atrial fibrillation with rapid ventricular response. I have administered intravenous diltiazem and started oral dosing. Will reassess the patient. 03/22/2020 COPD-the patient is still unable to come off of BiPAP for more than a few minutes without desaturating. We will try FiO2 of 35% as he was saturating in the mid to high 90s earlier on 40%. Lungs are clear to auscultation but there is a shortened inspiratory phase with prolonged expiratory phase. Hypernatremia-I am going to change his fluids to half-normal saline to correct the hypernatremia. This should help with the elevated BUN as well. Hypermagnesemia. Magnesium still elevated at 2.8. Of note his platelet count has been dropping. I have ordered another CBC for tomorrow to check for thrombocytopenia. Hypertension-blood pressure is quite variable. I think that depending on his state of agitation/excitation his systolic pressure will tend to vary. We will continue to monitor on telemetry and with scheduled vital signs. I spoke to the patient's and [id number] at the bedside. I explained that we really have not been making much progress. I expressed my concerns regarding his survivability of this episode. I again stated that every day I will assess the patient and see if we are making any progress. If we do not make any progress over the next several days then I believe we will need to dis cuss comfort measures in house. I did have a chance to speak to the patient's daughter Ness. After approximately 25-minute conversation she understands the gravity of the situation. She asked if there was any chance of recovery and I told her I cannot say never however in my opinion I do not think he is going to get out of the hospital. 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 I believe his is beginning to understand his grave prognosis. Hypernatremia-serum sodium is down to 149.3-change to half-normal saline. BUN is slightly improved as well. Magnesium is still high at 2.5. We will continue half-normal saline and monitor electrolytes. I did inform the that we would reassess tomorrow but if he is not improving at all then we need to consider comfort measures. 03/24/2020 The patient is declining despite aggressive measures. Will trial off of BiPAP yesterday and today both revealed that the patient desaturated into the 60s and 70s within 10 minutes. Today he desaturated to 73 within 4 minutes despite 4 L nasal cannula. He is now bradycardic as well. After daily discussions with the family I expressed my concern and believe that the patient is not going to get better. He has declined despite aggressive measures. In my opinion he is [place] ffering. Last night he was swinging his legs over the edge of the bed and trying to pull his mask off. He required sedation and soft restraints. Despite medication he is still trying to pull his BiPAP mask off today. The patient's daughter was present in the room as well as the . Once again they are all deferring to the patient's . She expressed her sadness and anticipated extreme difficulty going on since they have been for 68 years I believe. 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 I asked if they would like clergy support. They in fact were very fond of the clergy who visited the home during the home hospice. With [facility]. I have asked the patient advocate to reach out to [facility] to see if they can arrange that. In addition I called the nursing transit operations supervisor to make sure that 2 other relatives (another daughter and a niece) are able to visit during this difficult time as the patient's , especially, will need a lot of support. I discussed the plan with nursing. Once the family is present we will initiate the transition to comfort measures. Morphine, lorazepam and acetaminophen are available as needed. I reviewed the change with the patient's nurse including the medication regimen changes. She will call me if there are any problems. It was a very difficult discussion for the family but I believe the patient's truly understands the unfortunate situation and does not want her to suffer. - Time Time Spent with patient: 35 or more minutes Medications reviewed and adjusted accordingly: Yes Anticipated Discharge Disposition: Comfort care Anticipated Discharge Timeframe: within 24 hours
[2020-03-24] MEDS ORDERED: MORPHINE SULFATE 10 MG/ML INJ ONE (16:44)
[2020-03-24] MEDS ORDERED: MORPHINE SULFATE 10 MG/ML INJ IV PRN (16:55)
[2020-03-24] MEDS ORDERED: MORPHINE SULFATE 10 MG/ML INJ IV ONE (17:00)
--- NOTE | 2020-03-24 20:30 | Death Summary ---
Summary Date : 03/24/20 Time of :: 19:30 Autopsy: No Resuscitation Status: Comfort Measures Only Primary Care Provider: Antoinette Consulting Provider: Gary - Final Diagnosis (1) Acute on chronic respiratory failure with hypoxia and hypercapnia Is this a current diagnosis for this admission?: Yes (2) Chronic obstructive pulmonary disease Is this a current diagnosis for this admission?: Yes (3) Acute diastolic heart failure Is this a current diagnosis for this admission?: Yes (4) HTN (hypertension) Is this a current diagnosis for this admission?: Yes (5) DNI (do not intubate) Is this a current diagnosis for this admission?: Yes (6) Atrial fibrillation with rapid ventricular response Is this a current diagnosis for this admission?: Yes (7) Hypernatremia Is this a current diagnosis for this admission?: Yes Hospital Course:: The patient presented with acute on chronic respiratory failure with hypoxia and hypercapnia. It was unclear if he diastolic heart failure or his COPD was the most problematic. Eventually it was felt that his COPD was playing a much more prominent role in his compromise. He advanced to being BiPAP dependent. He would be extremely tachypneic with respiratory rates varying from in the 20s to the 50s. He would also have some tachycardia. We would attempt on a daily basis to wean. Lately we would take the BiPAP off and utilize nasal cannula oxygen but the desaturation was very significant. The patient would pull out his mask and become agitated. He tried to get out of bed. It required restraints so he would not pull off his BiPAP or pull out his IVs. Over the last 4 days I had in fact seen more of a decline than anything. Not only was he BiPAP dependent but his windows of agitation were more frequent. For the last several days I explained to the patient's that we were likely progressing to a very bad outcome. Finally today I explained that he was not going to survive this. I emphasized that the patient's needs came first and that he was in fact suffering. His attempts at pulling the mask off were likely his efforts to tell everybody that he had had enough. The patient's and daughter were in the room. We came to the decision that comfort measures was the most humane treatment for the patient. With this in mind I initiated comfort measures. They inform me that they would like the patient's other daughter and niece to be able to visit and there was a clergy person associated with [facility] that they requested. Once the additional family were able to be present we advanced to aggressive comfort measures. Please see the orders and notes. At 7:30 PM I was notified that the patient . Cause of was in fact is end-stage COPD with resultant hypoxic and hypercapnic respiratory failure. Underlying conditions contributing were his atrial fibrillation and diastolic heart failure.
== END 2020-03-24 20:37 | DRG 189 ==
LOC: ER 18:50 → EH 22:21 → 3W 03-15 00:13
PROVIDERS: ADMIT Emergency Medicine; ATTEND Hospitalist
PROC: 5A09557 Assistance with Respiratory Ventilation, Greater than 96 Consecutive Hours, Continuous Positive Airway Pressure (ICD-10-PCS; principal; 2020-03-14)
DX: J96.22 Acute and chronic respiratory failure with hypercapnia (principal); J44.1 Chronic obstructive pulmonary disease with (acute) exacerbation; F05 Delirium due to known physiological condition; E87.0 Hyperosmolality and hypernatremia; I50.32 Chronic diastolic (congestive) heart failure; J96.21 Acute and chronic respiratory failure with hypoxia; Z51.5 Encounter for palliative care; I25.10 Atherosclerotic heart disease of native coronary artery without angina pectoris; E78.5 Hyperlipidemia, unspecified; I11.0 Hypertensive heart disease with heart failure; I48.91 Unspecified atrial fibrillation; I25.2 Old myocardial infarction; Z87.891 Personal history of nicotine dependence; Z88.0 Allergy status to penicillin; Z88.2 Allergy status to sulfonamides; Z79.899 Other long term (current) drug therapy; Z79.51 Long term (current) use of inhaled steroids; Z78.1 Physical restraint status; Z95.5 Presence of coronary angioplasty implant and graft
CPT/HCPCS: 36415; 36600; 71045; 71275; 80048; 80053; 81001; 82550; 82553; 82803; 82962; 83735; 83880; 84443; 84484; 85025; 85027; 87040; 93005; 93010; 93306; 93971; 94640; 94660; 99285; J0360; J0690; J1644; J2060; J2270; J2405; J2920; J2930; J3490; J7030; J7614; J7644